=== PATIENT | male | born 1945 | race African-American/Black ===

== ENCOUNTER 2016-08-23 06:38 | Inpatient (IN) ==
[2016-08-23] MEDS ORDERED: FUROSEMIDE 100 MG/10 ML VIAL IV STA (06:57)
[2016-08-23] MEDS ORDERED: ALBUTEROL 2.5 MG/3 ML NEB RESP TX STA (07:07)
[2016-08-23] MEDS ORDERED: FUROSEMIDE 100 MG/10 ML VIAL ONE (07:17)
--- NOTE | 2016-08-23 07:19 | Emergency Department Note ---
Ebony Cornejo Gwan, am scribing for, and in the presence of, Shreyas Horn MD 07:09 . Justina Cornejo James D, MD, personally performed the services described in this documentation, ascribed by Hugo Beck in my presence, and it is both accurate and complete . Arrival - Arrival Chief Complaint: Non-Specific Stated Complaint: Edema Mode of Arrival: Stretcher Limitations: No Limitations Source: Patient, RN Notes Reviewed - History of Present Illness HPI Narrative: Pt is a 71 y/o male who presents to the ED via EMS with a c/o generalized edema with an onset 3 months ago. His associated sxs have been SOB that worsens when he lays flat and the inability to walk. Patient stated that he began seeing Dr. Escalante in office 07/21/2016 due to hx of CHF. He continued to note that Dr. Escalante prescribed 40mg Lasix 3 times daily since onset with no relief. As a continued measure, Dr. Escalante has schedule pt with a Prototype Engineer Manager for 2016. Patient then stated that pt lives at home by himself and that he last saw Dr. Escalante in office 08/17/2016. He confirmed that he has an appointment with Dr. Escalante 08/25/2016 and that he is only able to sleep sitting upright but denies any hx of liver problems or hx of heart attack. Nurses noted that pt has an appointment with Dr. Brizuela on08/26/2016. No other problems/complaints reported in ED. Onset (ago): month(s) Consistency: constant Severity: moderate Allergies/Adverse Reactions: Allergies Allergy/AdvReac Type Severity Reaction Status Date / Time No Known Allergies Allergy Unverified 08/23/16 06:53 Review of System - Review of System 12 point system: reviewed and no additional remarkable complaints except as stated - Review of System Constitutional: Absent: chills, fever Eyes: Absent: discharge, pain Head/Ears/Nose/Throat: Absent: earache, epistaxis Respiratory: Absent: cough Cardiovascular: Absent: chest pain, palpitations Gastrointestinal: Present: as per HPI, abdominal pain (distended). Absent: nausea, vomiting, diarrhea Genitourinary male: Absent: urgency, dysuria, frequency Exam Physical Examination: GENERAL: This is a black male in no apparent distress. VITAL SIGNS: HEENT: Head is normocephalic and atraumatic. Pupils are equally round and reactive to light. Extraocular movement are intact. Oropharynx is benign with moist mucous membranes. NECK: Neck is soft and supple without tenderness. There are no masses. There is no lymphadenopathy. LUNGS: Lungs are clear to auscultation bilaterally. Chest rises symmetrically. There is no chest wall tenderness. Pt has expiratory wheezes in both lung nielson. CV: Heart is regular rate and rhythm without murmurs, rubs, or gallops. ABDOMEN: Abdomen is soft, non-tender to palpation. pt has distended abdomen. There is no organomegaly. Bowel sounds are present and active. SKIN: Skin is warm and dry. No rash. EXTREMITIES: Patient has full range of motion without tenderness. Pt has +2 pitting edema. NEUROLOGIC: Awake, alert, and oriented x4. Cranial nerves II through XII are grossly intact. There are no motorsensory deficits. PSYCHIATRIC: Normal affect. Normal mood. Vital Signs: Vital Signs Temperature 98 F 08/23/16 06:40 Pulse Rate 102 H 08/23/16 09:35 Respiratory Rate 20 08/23/16 09:35 Blood Pressure 108/71 08/23/16 09:35 O2 Sat by Pulse Oximetry 99 08/23/16 09:35 Course Course Narrative: Paracentesis performed from the emergency department. Appropriate labs were sent. - Consultations Consultation #1: Discussed with hospitalist. Patient will be admitted to their service. Time: 10:37 Results - Labs CBC & BMP: 08/23/16 07:10 08/23/16 07:10 Lab Results: I have reviewed the patients labs - EKG EKG results: interpreted by ERMD - Impressions EKG: Sinus tachycardia with a rate of 111, occasional PVCs, old inferior KS, nonspecific ST-T wave changes. - Diagnostic Findings Procedure: Chest x-ray: image reviewed by me (No infiltrates, no pleural effusions.) Disposition Clinical Impression: Dyspnea, Ascites Case discussed with: patient Disposition: Still a Patient Condition: Stable Time of Disposition: 10:37
--- NOTE | 2016-08-23 07:31 | EKG Report ---
Stationary ECG Study [facility] ER Test Date: 08/23/2016 7:30:20 AM Pat Name: KATERYNA ROBERTS Department: Room: Gender: M Cloth Printer: : [id number] Requested by: Shreyas Mathias Order Number: [id number] Reading MD: IRLANDA ORNELAS Intervals [place] Rate: 111 P: 40 [place]: 152 QRS: 7 QRSD: 72 T: -4 QT: 288 QTc: 354 Interpretive Statements SINUS TACHYCARDIA WITH OCCASIONAL ECTOPIC PREMATURE COMPLEXES POSSIBLE INFERIOR MYOCARDIAL INFARCTION, PROBABLY OLD ABNORMAL RHYTHM ECG LOW VOLTAGE Electronically Signed On 08-25-16 12:40:05 CDT by IRLANDA ORNELAS [email or web address]
[2016-08-23 07:39] LABS: Basophils # 0.1 10*3/uL (0.0-0.2); Basophils % 0.4 % (0.0-0.8); Eosinophils % 0.1 % (0.00-10.9); Hematocrit 39.9 VOL% (42.0-52.0); Hemoglobin 13.1 GM/DL (14.0-18.0); Immature Granulocytes % 1.1 %; Immature Granulocytes Absolute 0.17 #; Lymphocytes # 1.4 10*3/uL (1.4-4.0); Lymphocytes % 9.4 % (21.2-54.2); Mean Corpuscular HGB Conc 32.8 GM/DL (32-36); Mean Corpuscular Hemoglobin 29 PG (27-34); Mean Corpuscular Volume 89.1 FL (87-102); Mean Platelet Volume 10.3 FL (9.6-12.0); Monocytes # 1.8 10*3/uL (0.11-0.8); Monocytes % 11.9 % (1.7-12.7); Neutrophils # 11.5 10*3/uL (1.4-7.4); Neutrophils % 77.1 % (38.7-73.9); Platelet Count 317 T/CUMM (130-400); Red Blood Count 4.48 MC/CUMM (3.8-5.5); Red Cell Distribution Width 15.3 % (9.3-17.3); White Blood Count 14.8 T/CUMM (4-12)
[2016-08-23 07:43] LABS: Amorphous Crystals,Urine Occasional /HPF (Few); Apearance,Urine Slightly Hazy (Clear); Bilirubin,Urine Negative (Negative); Blood, Urine Small mg/dL (Negative); Glucose,Urine (UA) Negative (Negative); Hyaline Casts,Urine 4 /LPF (0-3); Ketones,Urine 20 mg/dL (Negative); Mucus,Urine Occasional /LPF (Occasional); Nitrite,Urine Negative (Negative); Protein,Urine 30 MG/DL; RBC,Urine 8 /HPF (0-4); Urine Color Amber (Yellow); Urine Urobilinogen < 2.0 EU/DL (0.2-1.0); WBC,Urine 1 /HPF (0-6)
[2016-08-23 07:50] LABS: INR 1.5; Partial Thromboplastin Time 31.9 SECS (0-40)
[2016-08-23 08:01] LABS: Band Neutrophils 7 % (0-10); Burr Cells Slight; Hypochromasia 1+; Lymphocytes 9 % (20-55); Microcytosis Slight; Promyelocytes 1 %; Segmented Neutrophils 74 % (50-85); Total Cells Counted 100
[2016-08-23 08:02] LABS: Platelet Estimate Normal
--- NOTE | 2016-08-23 08:05 | XRay Report ---
XR chest 1V portable Indication: Shortness of breath Comparison: None available Findings: The heart and mediastinum are normal in size and configuration. The pulmonary vascularity is normal in caliber. No lung infiltrates, effusions, pneumothorax or other abnormality is demonstrated. Impression: Normal chest x-ray PROCEDURE INTERPRETED AT [facility] DEPARTMENT OF RADIOLOGY Final Report Signed by: Dr. Saúl Rubio
[2016-08-23 08:12] LABS: Albumin 1.9 G/DL (3.4-5.0); Bilirubin,Total 2.4 MG/DL (0.2-1.0); Calcium 8.9 MG/DL (8.5-10.1); Osmolality,Calculated 279.2 MOS/KG (273-304); Potassium 4.6 MMOL/L (3.5-5.1); Total Protein 5.9 G/DL (6.4-8.3); Troponin I Only 0.022 NG/ML (0.00-0.045)
--- NOTE | 2016-08-23 09:53 | Ultrasound Report ---
Right upper quadrant ultrasound Indication: Abdominal Pain Findings: The liver is normal in size and echogenicity. The gallbladder is fluid-filled without evidence of stones or sludge. The gallbladder wall thickness is 6.0 mm . The common bile duct measures 4.6 mm. The visualized portion of the pancreas appear within normal limits The right kidney is normal in size and echogenicity and measures 9.6 cm . No free fluid or free air seen. Impression: No evidence of abnormality demonstrated. Ultrasound images stored and captured. PROCEDURE INTERPRETED AT [facility] DEPARTMENT OF RADIOLOGY Final Report Signed by: Dr. Saúl Rubio
--- NOTE | 2016-08-23 10:14 | XRay Report ---
XR abdomen complete w decub Clinical Information: Abdominal Pain abdominal distention, ascites Comparison: None Findings: Bowel gas pattern is nonspecific and within normal limits. No abnormally dilated small bowel loops are identified to suggest obstruction. There is minimal free air identified along the right upper quadrant on the decubitus images, which may be related to recent paracentesis procedure. Scattered fecal material is noted throughout colon, which is otherwise nondilated. No abnormal focal soft tissue masses or calcific densities are identified in the abdomen or pelvis. Nava catheter is noted in place. Lung bases appear predominantly clear. There is no acute osseous abnormality. No suspicious osseous lesions are identified. Impression: Punctate air droplets along the right upper quadrant may be related to recent paracentesis. Free air from bowel perforation would be a less likely consideration but cannot be entirely excluded. Otherwise, no definite acute radiographic abnormality in the abdomen. A mild-moderate degree of fecal stasis/constipation is suspected. PROCEDURE INTERPRETED AT [facility] DEPARTMENT OF RADIOLOGY Final Report Signed by: Favio Morrison
--- NOTE | 2016-08-23 10:19 | Post Interventional Procedure ---
Pre-op diagnosis: protuberant abdomen, ascites Post-op diagnosis: same Procedure: u/s guided paracentesis Contrast: none Flouroscopy: none Radiologist: Favio Morrison Anesthesia: local Specimens: other (2075 mL maloderous/serous ascitic fluid with debris) Estimated blood loss: none Complications: none Condition: stable Description/Findings: Extensive septations are noted. A small pocket of fluid was initially targeted to the right lower quadrant. From this pocket, a total of 75 mL of serous ascitic fluid was removed. Despite catheter manipulation, no additional fluid could be removed. Again ultrasound evaluation of the abdomen was performed and an additional pocket of fluid within the left upper quadrant was visualized. Repeat sterile prep and drape was performed. This pocket was accessed with the centesis catheter and approximately 2 L of serous malodorous ascitic fluid with some debris was removed. Sterile dressings were applied at the puncture sites. Patient tolerated the procedure well and left the procedure area in stable condition. Given the unexpected findings, recommendations were for CT imaging of the abdomen/pelvis with IV contrast when clinically feasible. Assessment and Plan - Time spent with patient Time spent with patient: Less than 30 minutes
[2016-08-23] MEDS ORDERED: ZALEPLON 5 MG CAPSULE PO PRN (11:16)
[2016-08-23] MEDS ORDERED: ONDANSETRON 4 MG/2 ML VIAL IV PRN (11:16)
--- NOTE | 2016-08-23 11:32 | Hospitalist History & Physical ---
Assessment and Plan - Time spent with patient Time spent with patient: Greater than 30 minutes (1) Bilateral lower extremity edema Status: Acute Assessment and plan: 71-year-old -Greek male admitted by Dr. Cason from the ED with shortness of breath due to ascites and bilateral lower extremity edema. Patient has been followed by Dr. Escalanet and is on multiple diuretics. Patient had a initial appointment for evaluation by Dr. Brizuela on 08/26/2016 scheduled. Will admit the patient to monitored bed, consult Dr. Escalante and Dr. Brizuela for evaluation. Will restart his home medicines. Will await results of CT scan and cultured paracentesis. We will go ahead and start the patient on some antibiotics for erythema and induration surrounding umbilicus. This is all been discussed with Dr. Cason. Further recommendations to follow. Current Visit: Yes (2) Leukocytosis Status: Acute Current Visit: Yes (3) Hyperbilirubinemia Status: Acute Current Visit: Yes (4) CHF (congestive heart failure) Status: Acute Current Visit: Yes (5) Dyspnea Status: Acute Current Visit: Yes (6) Ascites Status: Acute Current Visit: Yes History of Present Illness Chief complaint: Shortness of breath, increased swelling History of present illness: Mr. Dale is a very pleasant 71-year-old -Greek male with history of hypertension presenting to the ED today with increased abdominal and lower extremity swelling and shortness of breath. Patient states he was in his normal state of health until May when he started to get some lower extremity edema. He was referred to Dr. Escalante's office and has seen him twice with his last visit being last week. Dr. Escalante was treating him for CHF and had started him on 40 mg of Lasix 3 times a day with no relief of his symptoms. On his visit last week he was started on Aldactone and metolazone as well. Patient was also referred to see Dr. Brizuela for gastroenterology on . patient states that he continued to get abdominal and lower extremity swelling. He is now short of breath and very weak in his lower extremities and cannot walk. he Is also complaining of pain around his bellybutton. Patient denies any further medical history other than hypertension and he has no surgical history. He denies headache, blurred vision, difficulty swallowing, chest pain, constipation, diarrhea, difficulty urinating, or decreased sensation. He is retired from [employer] in [place] and has recently moved back to [place]. Echo in Dr. Escalante's office showed a 40% EF as well as the one done in the ED today. Patient is afebrile with tachycardia. He did have some runs of V. fib on the monitor during examination that were asymptomatic. His white count is mildly elevated at 14.8, H&H 13.1/39.9, platelets are normal, patient's coags are normal, electrolytes and creatinine are normal, patient's bilirubin is elevated at 2.4 with normal AST and ALT. His alkaline phosphatase is abnormal at 133 and his BNP is 887, abdominal ultrasound showed no evidence of abnormality. Chest x-ray is normal. Chest x- ray showing sinus tachycardia with occasional ectopic premature complexes and possible inferior NJ, probably old. Dr. Morrison from interventional radiology performed an ultrasound-guided paracentesis this morning where 2075 mL of malodorous/serous ascitic fluid with debris was removed. This is been sent off for culture. With the unexpected findings of extensive septations seen during paracentesis, CT the abdomen and pelvis was recommended and this is now pending. Patient's case was discussed with ED physician Dr. Horn and hospitalist Dr. Cason and it was decided patient would serve best by hospital admission and further workup. Home Medications Medication Instructions Recorded Confirmed Type Captopril 6.25 mg PO BID 08/23/16 08/23/16 History Carvedilol 6.25 mg PO BID 08/23/16 08/23/16 History Furosemide Tab [Lasix Tab] 40 mg PO DAILY 08/23/16 08/23/16 History Potassium Chloride 20 meq PO DAILY 08/23/16 08/23/16 History Spironolactone [Aldactone] 12.5 mg PO DAILY 08/23/16 08/23/16 History metOLazone [Metolazone] 5 mg PO BID 08/23/16 08/23/16 History Allergies Allergy/AdvReac Type Severity Reaction Status Date / Time No Known Allergies Allergy Unverified 08/23/16 06:53 Medical,Surgical,& Family Hx - Medical History Cardio: History of: CHF, Hypertension - Surgical History Cardiac Surgeries: Patient Denies: Cardiac Catheterization Abdominal Surgeries: Patient denies: Abdominal Surgery, Colonoscopy - Family History Family History: Reports;: Family Hypertension - Social History Smoking Status: Never smoker Frequency of Alcohol Use: None Type of Drug Use: None Lives With:: Alone Functional capacity: independent ambulation Review of systems: Complete 10 system review of systems was obtained and pertinent negatives and positives are per HPI Exam - Constitutional Vitals: Period Temp Pulse Resp BP Sys/Dorado Pulse Ox Last 24 Hr 98 F-98 F 99-110 17-24 105-126/65-83 95-99 Exam: Constitutional System: Mild distress due to shortness of breath. No tremulousness. Head: Normocephalic, atraumatic. Ears, Nose and Throat System: No evidence of Otitis or Mastoiditis. No epistaxis or discharge Eyes System: Pupils equal, round, and reactive. Extraocular muscles intact. Neck: Supple, without adenopathy, No jugular venous distention. No thyromegaly, neck mass, or prior surgery apparent. Respiratory System: Chest clear to auscultation. Cardiovascular System: Heart with tachycardic rate and rhythm. No murmur. GI System: Abdomen moderately distended, tender with some erythema around umbilicus. No active bowel sounds present due to ascites. Musculoskeletal System: limbs with +4 pedal edema. No distal pulses appreciated due to edema. Neurological System: No discernable sensory deficit. No aphasia Psychiatric System: Conversation is rational Results - Labs CBC & BMP: 08/23/16 07:10 08/23/16 07:10 Lab Results: I have reviewed the past 24 hour labs - EKG EKG shows: tachycardia - Diagnostic Findings Procedure: Abdominal x-ray: report reviewed by me (No acute process), Chest x- ray: report reviewed by me (No acute process), CT Abdomen and Pelvis: report reviewed by me (Pending), Ultrasound: report reviewed by me (No acute process)
[2016-08-23 11:42] LABS: Neutrophils,Peritoneal Fluid 89 %
[2016-08-23 11:43] LABS: RBC,Peritoneal Fluid 8237 T/CUMM
--- NOTE | 2016-08-23 12:12 | Ultrasound Report ---
Exam: Ultrasound-guided paracentesis Clinical history: new ascites. Physician: Dr. Morrison. Procedure: Informed consent was obtained prior to procedure. A formal timeout was performed. Maximum sterile barrier technique was used. Initially, the right lower quadrant was prepped and draped in sterile fashion. Under sonographic guidance, a 6 [place] safety centesis catheter and needle were advanced into the ascites using trocar technique. Of note, the ascites is complex with debris and/or septations. A captured sonographic image documents needle position. From this position, only 75 cc of serous peritoneal fluid could be removed despite catheter repositioning. The needle was removed. Ultrasound evaluation demonstrates a pocket of fluid within the left upper quadrant. Again, the fluid is complex with debris and/or septation suggested. Through the catheter, we obtained a total of 2000 cc of straw-colored ascites with debris. Additionally, the fluid was malodorous. No additional fluid could be obtained. Therefore, the catheter was removed. A bandage was placed at the puncture site. The patient tolerated the procedure well. Complications: None. Estimated blood loss: Less than 5 mL. Impression: Technically successful ultrasound guided paracentesis. Peritoneal fluid appears "complicated" as detailed above. CT imaging of the abdomen/pelvis would be helpful for further evaluation. PROCEDURE INTERPRETED AT [facility] DEPARTMENT OF RADIOLOGY Final Report Signed by: Favio Morrison
--- NOTE | 2016-08-23 12:23 | CT Report ---
CT abdomen pelvis w con Indication: Abdominal pain, swelling, shortness of breath Comparison: Abdomen radiographs 08/23/2016. Technique: CT of the abdomen and pelvis was performed following administration of intravenous contrast. Coronal and sagittal reformatted images were additionally created and submitted for review. The total DLP is 1486 mGy*cm. Dose reduction: This CT exam was performed using one or more of the following dose reduction techniques: Automated exposure control, automated adjustment of the mA and/or KV according to patient size, or use of iterative reconstruction technique. Findings: Very minimal posterior basilar dependent atelectatic changes are noted bilaterally. Lung bases are otherwise clear. There is no pleural or pericardial effusion. ABDOMEN: Liver/Gallbladder: No abnormal enhancing hepatic lesions are visualized. There is no biliary ductal dilatation. No gallstones are visualized. The portal vein appears patent. Spleen: No acute findings. Pancreas: No acute findings. Adrenals: Within normal limits in appearance. Kidneys: Both kidneys enhance with no evidence of hydronephrosis. There is symmetric excretion of contrast from both kidneys on delayed images. Bowel/mesentery: Extensive abnormality with free fluid/air throughout the peritoneal cavity is noted. There is suggestion of debris within this collection and multiple droplets of air, which may represent a large peritoneal abscess. An underlying bowel perforation is not definitely identified but cannot be excluded. There is no evidence of small bowel dilatation or obstruction. Oral contrast is noted throughout the small bowel and into the colon at least to the level of the descending colon/sigmoid colon there are several colonic diverticula noted. There is no definite CT evidence of acute diverticulitis. At the peritoneal reflections, especially within the left upper quadrant, there is thickening of the mesenteric fat and a degree of omental caking is not excluded. No mesenteric adenopathy is definitely visualized. Retroperitoneum: No evidence of aortic aneurysm or significant retroperitoneal adenopathy. PELVIS: Similar large abdominopelvic collection extends into the pelvis. This does not appear to definitely communicate with bowel or bladder. Nava catheter is noted within the bladder. The bladder is collapsed and otherwise poorly evaluated. There is no adenopathy in the pelvis. Prostate is grossly within normal limits. BONES: No acute or suspicious osseous abnormalities are identified. Mild degenerative changes are noted within the lumbar spine. IMPRESSION: Large fluid collection essentially filling the peritoneal cavity with suggestion of thickening of the peritoneal lining, possible omental caking and extensive debris with innumerable air droplets noted may represent a spontaneous bacterial peritonitis/peritoneal abscess. Although not definitely visualized, bowel perforation cannot be excluded. There is no definite evidence of small bowel obstruction. Critical findings discussed with Dr. Mac Horn via telephone at 12:15 PM on the day of the examination 08/23/2016 12:12 PM PROCEDURE INTERPRETED AT [facility] DEPARTMENT OF RADIOLOGY Final Report Signed by: Favio Morrison
--- NOTE | 2016-08-23 13:53 | Gastrointestinal Consult Note ---
Assessment and Plan (1) Ascites Status: Acute Assessment and plan: 08/23-3 month history of increased edema and abdominal distention. Post paracentesis with 2 L of malodorous fluid with debris noted with gram-positive cocci and few gram-positive rods. Abdominal ultrasound showed normal liver size , no acute gallbladder findings. CT of abdomen shows peritoneal cavity thickening with questionable omental caking. Bilirubin 2.4, alkaline phosphatase 133, albumin 2.1. INR 1.5. IV Flagyl and Ancef have been started. Check hepatitis panel. Plan an addendum to followed by Dr. Brizuela. Current Visit: Yes History of Present Illness Chief complaint: Ascites History of present illness: Mr. Dale is a 71 year old male who presented to the hospital with increased generalized edema and shortness of breath that began approximately 3 months ago. Patient states that he was in his usual state of health until May of this year when he noticed that he began to have swelling in his legs and his abdomen. States that he does not have difficulty breathing but he was having shortness of breath when he would try to walk or do other activities. Patient states since this time his abdomen has began to distend and he has had some discomfort related to this. He is followed by Dr. mcwilliams in clinic and has been on diuretic therapy with minimal relief if at all. He states that he has never had abdominal swelling like this before. Patient has never seen a crusher dry ground mica in the past and has never had endoscopy done before. He has a negative history for smoking or drinking. States that he leads an active life and lives of healthy lifestyle. He has never been diagnosed with liver problems in the past. Denies family history of colon cancer. States that he was given an appointment to see Dr. Brizuela this week however he could not wait and came to the ER for further evaluation. He had an ultrasound-guided paracentesis this morning with Dr. Peoples had 2075 mL's of fluid removed which was reported to be malodorous with debris. Abdominal ultrasound on admission showed no acute findings with normal liver size. He had a CT of the abdomen done following this which showed some peritoneal cavity thickening with questionable omental caking. He denies any fever, chills or night sweats. Denies any unexplained weight loss. He has been started on IV antibiotics and peritoneal fluid initial analysis noted to show gram-positive cocci and few gram -positive rods. Home Medications Medication Instructions Recorded Confirmed Type Captopril 6.25 mg PO BID 08/23/16 08/23/16 History Carvedilol 6.25 mg PO BID 08/23/16 08/23/16 History Furosemide Tab [Lasix Tab] 40 mg PO DAILY 08/23/16 08/23/16 History Potassium Chloride 20 meq PO DAILY 08/23/16 08/23/16 History Spironolactone [Aldactone] 12.5 mg PO DAILY 08/23/16 08/23/16 History metOLazone [Metolazone] 5 mg PO BID 08/23/16 08/23/16 History Allergies Allergy/AdvReac Type Severity Reaction Status Date / Time No Known Allergies Allergy Unverified 08/23/16 06:53 Medical,Surgical,& Family Hx - Medical History Cardio: History of: CHF, Hypertension Musculoskeletal: No history of: Amputation - Surgical History Cardiac Surgeries: Patient Denies: Cardiac Catheterization Thoracic Surgeries: Patient denies;: Organ Transplant, Lobectomy Neurologic Surgeries: Patient denies: Neurologic Surgery Abdominal Surgeries: Patient denies: Abdominal Surgery, Colonoscopy Reproductive Surgeries: Patient denies;: Genitourinary Surgery - Family History Family History: Reports;: Family Hypertension - Social History Smoking Status: Never smoker Frequency of Alcohol Use: None Type of Drug Use: None 12 point system: reviewed and no additional remarkable complaints except as stated - Constitutional Constitutional: Present: as per HPI - EENT Eyes: Present: as per HPI Ears: Present: as per HPI Nose, mouth and throat: Present: dysphagia - Cardiovascular Cardiovascular: Present: as per HPI, dyspnea - Respiratory Respiratory: Present: as per HPI - Gastrointestinal Gastrointestinal: Present: as per HPI, other (Abdominal distention) - Genitourinary Genitourinary: Present: as per HPI - Musculoskeletal Musculoskeletal: Present: as per HPI - Neurological Neurological: Present: as per HPI - Psychiatric Psychiatric: Present: as per HPI - Endocrine Endocrine: Present: as per HPI - Hematologic/Lymphatic Hematologic/Lymphatic: Present: as per HPI Exam - Constitutional Vitals: Period Temp Pulse Resp BP Sys/Dorado Pulse Ox Last 24 Hr 99.4 F 102 18 103/60 100 General appearance: normal weight, no acute distress - Head Head exam: Present: normal inspection, normocephalic - Eye Eye exam: Present: other (Lids and conjunctivae unremarked). Absent: scleral icterus - ENT ENT exam: Present: normal exam, normal oropharynx - Neck Neck exam: Present: normal inspection - Respiratory Respiratory exam: Present: clear to auscultation bilaterally. Absent: rales, rhonchi, wheezes - Cardiovascular Cardiovascular exam: Present: regular rate and rhythm. Absent: diastolic murmur , JVD, systolic murmur - GI/Abdominal GI/Abdominal exam: Present: normal bowel sounds, ascites, distended, tenderness , soft. Absent: mass, organomegaly - Extremities Exam Extremities exam: Present: normal inspection, full ROM - Back Exam Back exam: Present: normal inspection - Neurological Exam Neurological exam: Present: alert, oriented X3 - Psychiatric Psychiatric exam: Present: normal affect, normal mood - Skin Skin exam: Present: normal color, warm, dry Results - Labs CBC & BMP: 08/23/16 07:10 08/23/16 07:10 Lab Results: I have reviewed the past 24 hour labs - Diagnostic Findings Procedure: CT Abdomen and Pelvis: report reviewed by me, Ultrasound: report reviewed by me Quality Measures - Stroke Symptom Onset Unknown: No
[2016-08-23] MEDS: ENOXAPARIN 30 MG/0.3 ML SYRINGE SUBCUT SCH (14:28)
[2016-08-23] MEDS: PANTOPRAZOLE 40 MG TABLET PO SCH (14:28)
[2016-08-23] MEDS: metroNIDAZOLE INJ 500 MG in PREMIX 1 EACH IV SCH ×2 (14:28→22:09)
[2016-08-23] MEDS ORDERED: SKIN HEALING OINT (AQUAPHOR) 50 GM TUBE TOP PRN (15:08)
--- NOTE | 2016-08-23 15:15 | General Surgery Consult Note ---
Assessment and Plan - Time spent with patient Time spent with patient: Less than 30 minutes (1) Abdominal mass Status: Acute Assessment and plan: Impression: 1. Abdominal mass etiology unclear with extension towards the umbilicus. We need to consider near neoplastic process 2. Ascites etiology unclear 3. Congestive heart failure. Plan: 1. At this point were waiting on the fluids that were drawn off see if there is any unusual sales or abnormality seen with that. We will start some local care to the abdominal wall at this point time to keep things smooth and dry well protected. 2. Because of the mass-effect and induration around the umbilicus which could be infectious in nature I think we have to consider that this could be a neoplastic process. I think patient needs an be in good medical condition before considering any surgery at this point in order to ensure that we get the best results long-term. Current Visit: Yes Qualifiers: Abdominal location: periumbilical Qualified Code(s): R19.05 - Periumbilic swelling, mass or lump (2) Abdominal mass Status: Acute Current Visit: Yes History of Present Illness Chief complaint: Usual changes of the peritoneal cavity and induration about the umbilicus. History of present illness: Mr. Dale is a 71 year old male -[place] male who presented with ascites and some congestive heart failure and was put in at that time. He was found to have a pretty tight abdomen and they attempted to do some thoracentesis and got a little bit of fluid out once but not much out the other side. CT scan of the abdomen and pelvis showed some unusual changes in around the lower abdomen possibly omental caking is a described. Bowel seems to be intact and seems to be flowing through without difficulty at this time. He does have some induration around the umbilicus at this time but probably is just a projection with going on in the abdomen itself. Do not understand the ascites problems and he describes it is a last couple months getting worse. I think it is important that we consider the possibility this is neoplastic in nature and that we need to count a sort out this before rushing to surgery. Home Medications Medication Instructions Recorded Confirmed Type Captopril 6.25 mg PO BID 08/23/16 08/23/16 History Carvedilol 6.25 mg PO BID 08/23/16 08/23/16 History Furosemide Tab [Lasix Tab] 40 mg PO DAILY 08/23/16 08/23/16 History Potassium Chloride 20 meq PO DAILY 08/23/16 08/23/16 History Spironolactone [Aldactone] 12.5 mg PO DAILY 08/23/16 08/23/16 History metOLazone [Metolazone] 5 mg PO BID 08/23/16 08/23/16 History Allergies Allergy/AdvReac Type Severity Reaction Status Date / Time No Known Allergies Allergy Unverified 08/23/16 06:53 Medical,Surgical,& Family Hx - Medical History Cardio: History of: CHF, Hypertension Musculoskeletal: No history of: Amputation - Surgical History Cardiac Surgeries: Patient Denies: Cardiac Catheterization Thoracic Surgeries: Patient denies;: Organ Transplant, Lobectomy Neurologic Surgeries: Patient denies: Neurologic Surgery Abdominal Surgeries: Patient denies: Abdominal Surgery, Colonoscopy Reproductive Surgeries: Patient denies;: Genitourinary Surgery - Family History Family History: Reports;: Family Hypertension - Social History Smoking Status: Never smoker Frequency of Alcohol Use: None Type of Drug Use: None 12 point system: reviewed and no additional remarkable complaints except as stated Exam - Constitutional Vitals: Period Temp Pulse Resp BP Sys/Dorado Pulse Ox Last 24 Hr 99.4 F 102 18 103/60 100 General appearance: mild distress - Head Head exam: Present: normal inspection - Eye Eye exam: Present: EOMI - ENT ENT exam: Present: normal exam - Neck Neck exam: Present: normal inspection - Respiratory Respiratory exam: Present: clear to auscultation bilaterally - Cardiovascular Cardiovascular exam: Present: RRR - GI/Abdominal GI/Abdominal exam: Present: distended, hypoactive bowel sounds, mass (Fullness and firmness around the umbilicus), tenderness (About the umbilicus), soft - Extremities Exam Extremities exam: Present: normal inspection - Back Exam Back exam: Present: normal inspection - Neurological Exam Neurological exam: Present: alert - Skin Skin exam: Present: normal color, warm, dry Quality Measures - Stroke Symptom Onset Unknown: No Results - Labs CBC & BMP: 08/23/16 07:10 08/23/16 07:10 Lab Results: I have reviewed the past 24 hour labs
[2016-08-23 16:05] LABS: Hepatitis A Ab IgM Result Negative (Negative); Hepatitis B Core IgM Quant 0.16 Index; Hepatitis B Core IgM Result Negative (Negative); Hepatitis B Surface Ag Quant < 0.10 Index; Hepatitis B Surface Ag Result Negative (Negative); Hepatitis C Virus Ab Quant 0.12 Index; Hepatitis C Virus Ab Result Negative (Negative)
--- NOTE | 2016-08-23 17:38 | Cardiology Consult Note ---
Michael Cornejo April RN, am scribing for, and in the presence of, Jonny Serrano MD 17:38. Assessment and Plan - Time spent with patient Time spent with patient: Greater than 30 minutes (Due to assessment, planning, documentation medication review) (1) Ascites Status: Acute Assessment and plan: 1. 71-year-old BM with 3-4 months of increased lower extremity edema and ascites/anasarca feeling much better after large volume paracentesis earlier today. 2. 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 Consult sleep medicine. 3. Mild cardiomyopathy with ejection fraction of 40% July 2016 in the clinic; he is followed Dr. Escalante 4. Add spironolactone 25 mg twice a day 5. Add IV Lasix 40 mg twice a day 6. 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 Escalante Mr. Dale is a 71 year old male with a history of hypertension. Surgical history includes appendectomy. Family history of sister with diabetes and siblings with hypertension. He reports he is a lifetime non-smoker. He first saw Dr. Escalante July 21 for edema in lower extremities and abdomen and dyspnea on exertion. He tells me he has been having swelling shortness of breath since May 25. His primary doctor had put him on Lasix 20 mg daily and this had not helped. She refer him to Dr. Escalante any change Lasix to 40 mg daily and had a visit on August 17 brianne added metolazone 5 mg daily. Echo done at Dr. Escalante's office July 21 with ejection fraction 40%, mild to moderate tricuspid regurgitation, mild mitral regurgitation, mild pulmonic regurgitation. Shortness of breath continued to get worse and he came to the emergency department this morning for further evaluation. He reports he has been extremely short of breath even while sitting, also complains of orthopnea and extreme weakness. EKG done this morning showed sinus tachycardia with heart rate of 111. Ultrasound-guided paracentesis today with 2075 mL malodorous /serous ascitic fluid with debris was removed. He was given Lasix 80 mg IV 1 dose in the emergency department. He still has swelling in his abdomen and lower extremities, but he tells me this is much better than when he came in. He also says his breathing is much improved. He continues to be tachycardic. O2 sat 100% on room air, blood pressure 103/60. CC: Carlton Cason MD - Home Medications and Allergies Home Medications: Home Medications Medication Instructions Recorded Confirmed Type Captopril 6.25 mg PO BID 08/23/16 08/23/16 History Carvedilol 6.25 mg PO BID 08/23/16 08/23/16 History Furosemide Tab [Lasix Tab] 40 mg PO DAILY 08/23/16 08/23/16 History Potassium Chloride 20 meq PO DAILY 08/23/16 08/23/16 History Spironolactone [Aldactone] 12.5 mg PO DAILY 08/23/16 08/23/16 History metOLazone [Metolazone] 5 mg PO BID 08/23/16 08/23/16 History Allergies/Adverse Reactions: Allergies Allergy/AdvReac Type Severity Reaction Status Date / Time No Known Allergies Allergy Unverified 08/23/16 06:53 - Constitutional Constitutional: Present: as per HPI - EENT Eyes: Present: blurry vision, requires corrective lense Ears: Absent: decreased hearing, tinnitus Nose, mouth and throat: Absent: dysphagia, epistaxis, headache(s), neck pain - Cardiovascular Cardiovascular: Present: dyspnea, dyspnea on exertion, edema, orthopnea. Absent : chest pain at rest, chest pain with activity, diaphoresis, radiating jaw, neck or arm pain, lightheadedness, palpitations - Respiratory Respiratory: Present: dyspnea, dyspnea on exertion. Absent: hemoptysis, wheezing - Gastrointestinal Gastrointestinal: Present: abdominal pain, other (Ascites). Absent: constipation, diarrhea, hematemesis, hematochezia, melena, nausea, vomiting - Genitourinary Genitourinary: Absent: dysuria, hematuria - Musculoskeletal Musculoskeletal: Present: limited range of motion, muscle weakness. Absent: back pain - Neurological Neurological: Present: abnormal gait. Absent: abnormal speech, dizziness, frequent falls, headache(s), syncope - Psychiatric Psychiatric: Absent: confusion, depression - Endocrine Endocrine: Present: fatigue - Hematologic/Lymphatic Hematologic/Lymphatic: Absent: easy bleeding, easy bruising Medical,Surgical,& Family Hx - Medical History Cardio: History of: Hypertension - Surgical History Abdominal Surgeries: Surgical HX of: Appendectomy - Family History Family History: Reports;: Family Diabetes (Sister), Family Hypertension ( Siblings) - Social History Smoking Status: Never smoker Have you smoked in the last 12 months: No Frequency of Alcohol Use: None Type of Drug Use: None Lives With:: Alone Functional capacity: uses cane/walker Physical Examination Vital Signs Temp Pulse Resp BP Pulse Ox 98 F 99 H 18 105/69 95 08/23/16 06:40 08/23/16 06:40 08/23/16 06:40 08/23/16 06:40 08/23/16 06:40 General: Present: Appears Well, No Apparent Distress HEENT: Present: PERRL, Mucus Membranes Moist Neck: Present: Supple Neck, Midline Trachea Cardiac: Present: Reg Rate and Rhythm, No Murmur, Tachycardia Lungs: Present: Normal Breath Sounds, No Wheeze, Rales, Rhonchi. Absent: Oxygen Neuro: Absent: Resting Tremor, Essential Tremor Abdomen: Present: Decreased Bowel Sounds, Ascites, Tender Skin: Present: Other (erythema around umbilicus) Musculoskeletal: Present: Decreased Range of Motion Gait: Present: Poor Gait Extremities: Present: Normal Upper Extr. Pulses, +3 Edema (Bilateral lower extremities). Absent: Normal Gait, Normal Lower Extr. Pulses (Weight pulses bilaterally) Result/EKG - Labs CBC & BMP: 08/23/16 07:10 08/23/16 07:10 Lab Results: I have reviewed the past 24 hour labs Labs: Laboratory Results - last 24 hr 08/23/16 08/23/16 14:26 15:40 Carcinoembryonic Ag 1.1 Hepatitis A IgM Ab Negative Hep Bs Antigen Negative Hep B Core IgM Ab Negative Hepatitis C Antibody Negative - Diagnostic Findings Procedure: Chest x-ray: report reviewed by me - EKG EKG results: interpreted by me EKG shows: tachycardia, sinus rhythm Quality Measures - Stroke Symptom Onset Unknown: No IMaggie Randall Scott, MD, personally performed the services described in this documentation, ascribed by Luciana Rodriguez RN in my presence, and it is both accurate and complete [id number] .
[2016-08-23] MEDS: FUROSEMIDE 40 MG/4 ML VIAL IV SCH (18:05)
--- NOTE | 2016-08-23 21:25 | ECHO Report ---
Dion Dale Exam Date: 08/23/2016 08:40 Referring Physician: Technologist: Amita Blount Age: 71 Ht (in): 67 Wt (lb): 215 Gender: M Exam Location: [facility] Echo Indications: dyspnea, tachycardia BP: 119 / 75 HR: 102 Rhythm: tachycardia Technical Quality: Fair IMPRESSIONS 1. Left ventricle is mildly dilated at worse with overall ejection fraction 50-55% if not better. 2. Mild to moderately dilated left atrium. 3. Right-sided chambers are normal size. 4. Mildly sclerotic mitral valve with mild to moderate regurgitation. 4. Aortic valves a sclerotic tricuspid structure with trace insufficiency. 5. Mild to moderate tricuspid regurgitation. 6. Mildly elevated right-sided pressures ranging from 48-53 mmHg. MEASUREMENTS (Male / Female) Normal Values 2D ECHO LV Diastolic Diameter PLAX 3.4 cm 4.2 - 5.9 / 3.9 - 5.3 cm LV Systolic Diameter PLAX 3.0 cm LV Fractional Shortening PLAX 10.1 % IVS Diastolic Thickness 1.8 cm 0.6 - 1.0 / 0.6 - 0.9 cm LVPW Diastolic Thickness 1.3 cm 0.6 - 1.0 / 0.6 - 0.9 cm Aortic Root Diameter 2.3 cm LA Systolic Diameter LX 4.6 cm 3.0 - 4.0 / 2.7 - 3.8 cm DOPPLER TR Peak Velocity 328.0 cm/s TR Peak Gradient 43.0 mmHg FINDINGS Left Ventricle Left ventricle may be mildly dilated with an overall ejection fraction probably of 50-55% if not better. Right Ventricle Normal right ventricular size. Right Atrium Normal right atrial size. Left Atrium Mild to moderately increased left atrial size. Mitral Valve Mild mitral valve sclerosis. Mild-moderate mitral valve regurgitation. Aortic Valve Aortic valves a tricuspid structure with minimal sclerosis and good motion. There is no stenosis and only trace insufficiency. Tricuspid Valve Morphologically normal tricuspid valve. Mild to moderate tricuspid valve regurgitation. Tricuspid regurgitation velocities suggest a PAP of 48-53 mmHg Pulmonic Valve Morphologically normal pulmonic valve. Trace pulmonary valve regurgitation. Pericardium No pericardial effusion. Aorta Normal size aortic root and proximal ascending aorta. Jose Antonio Riley MD (Electronically Signed) Final Date: 23 August 2016 21:24
[2016-08-23] MEDS: SPIRONOLACTONE 25 MG TABLET PO SCH (21:40)
[2016-08-24] MEDS: metroNIDAZOLE INJ 500 MG in PREMIX 1 EACH IV SCH ×4 (03:34→21:58)
[2016-08-24 07:18] LABS: Basophils # 0.1 10*3/uL (0.0-0.2); Basophils % 0.3 % (0.0-0.8); Eosinophils % 0.1 % (0.00-10.9); Hematocrit 41.4 VOL% (42.0-52.0); Hemoglobin 13.1 GM/DL (14.0-18.0); Immature Granulocytes % 1.6 %; Immature Granulocytes Absolute 0.28 #; Lymphocytes % 11.6 % (21.2-54.2); Mean Corpuscular HGB Conc 31.6 GM/DL (32-36); Mean Corpuscular Hemoglobin 29 PG (27-34); Mean Corpuscular Volume 90.6 FL (87-102); Mean Platelet Volume 10.5 FL (9.6-12.0); Monocytes # 2.4 10*3/uL (0.11-0.8); Monocytes % 13.8 % (1.7-12.7); Neutrophils # 12.4 10*3/uL (1.4-7.4); Neutrophils % 72.6 % (38.7-73.9); Platelet Count 327 T/CUMM (130-400); Red Blood Count 4.57 MC/CUMM (3.8-5.5); Red Cell Distribution Width 15.6 % (9.3-17.3); White Blood Count 17.1 T/CUMM (4-12)
[2016-08-24 07:43] LABS: Band Neutrophils 7 % (0-10); Lymphocytes 12 % (20-55); Segmented Neutrophils 63 % (50-85); Total Cells Counted 100
[2016-08-24 07:44] LABS: Hypochromasia 1+; Microcytosis Slight; Ovalocytes Slight; Platelet Estimate Adequate
[2016-08-24 07:54] LABS: Albumin 2.1 G/DL (3.4-5.0); Bilirubin,Total 4.8 MG/DL (0.2-1.0); Calcium 8.6 MG/DL (8.5-10.1); Osmolality,Calculated 279.4 MOS/KG (273-304); Thyroid Stimulating Hormone 2.85 uIU/ml (0.358-3.74); Total Protein 6.1 G/DL (6.4-8.3)
[2016-08-24 08:09] LABS: Calcium 8.7 MG/DL (8.5-10.1); Magnesium 1.9 MG/DL (1.8-2.4); Osmolality,Calculated 280.4 MOS/KG (273-304)
[2016-08-24] MEDS: SPIRONOLACTONE 25 MG TABLET PO SCH (08:41)
[2016-08-24] MEDS: PANTOPRAZOLE 40 MG TABLET PO SCH (08:41)
[2016-08-24] MEDS: FUROSEMIDE 40 MG/4 ML VIAL IV SCH (08:41)
[2016-08-24] MEDS ORDERED: METOPROLOL TARTRATE 25 MG TABLET PO ONE (08:52)
--- NOTE | 2016-08-24 09:15 | General Surgery Progress Note ---
Assessment and Plan - Time spent with patient Time spent with patient: Greater than 30 minutes (1) Abdominal mass Status: Acute Assessment and plan: 08/24/16 Large peritoneal omental caking with peritonitis. No gross colonic abnormalities or perforations seen, but there is still no definite etiology for the clinical & CT abnormalities. We will plan BE to get a look at the colon. The patient isn't favorable to surgery at this point, so I'll check with IR to see if they think it's feasible to place a percutaneous drainage catheter. We will continue IV antibiotics and watch the abdominal wall closely. He certainly appears to feel better, however the overall picture is unclear, and he still may require surgery. Current Visit: Yes Qualifiers: Abdominal location: periumbilical Qualified Code(s): R19.05 - Periumbilic swelling, mass or lump Subjective Patient reports: Present: feels better, pain is less, bowel movement. Absent: shortness of breath Exam - Constitutional Vitals: Period Temp Pulse Resp BP Sys/Dorado Pulse Ox Last 24 Hr 97.1 F-99.4 F 77-102 18-24 82-103/41-60 93-100 General appearance: no acute distress, other (Pt sitting up in chair in no distress; he is smiling, saying he feels 'so much better' and denies pain or shortness of breath. ) - Neck Neck exam: Present: normal inspection - Respiratory Respiratory exam: Present: rhonchi. Absent: accessory muscle use, wheezes - Cardiovascular Cardiovascular exam: Present: RRR, tachycardia - GI/Abdominal GI/Abdominal exam: Present: ascites, distended, hypoactive bowel sounds, rebound , other (Umbilicus is protuberant but soft; there is diffuse erythema without fluctuance or localized purulence, which extends approximately from the umbilicus 5cm inferiorly and out 5cm both directions. It is slightly warm but not tender to touch. No redness at paracentesis tap sites. No suprapubic tenderness or guarding. ). Absent: guarding - Extremities Exam Extremities exam: Present: edema (Diffuse bilaterally without weeping or redness.) Results - Labs CBC & BMP: 08/24/16 06:48 08/24/16 06:48 Lab Results: I have reviewed the past 24 hour labs (Noted; Peritoneal fluid with >10k wbc's) - Diagnostic Findings Procedure: CT Abdomen and Pelvis: image reviewed by me, report reviewed by me ( Reviewed again with Dr Painter.) Quality Measures - Stroke Symptom Onset Unknown: No
--- NOTE | 2016-08-24 09:17 | Gastrointestinal Progress Note ---
Assessment and Plan (1) Ascites Status: Acute Assessment and plan: 08/24-Afebrile, WBC elevated at 17 today. Wt down slightly. Continue to monitor at present time and consider repeat paracentesis on tomorrow. Plan and addendum to follow by Dr Brizuela. 08/23-3 month history of increased edema and abdominal distention. Post paracentesis with 2 L of malodorous fluid with debris noted with gram-positive cocci and few gram-positive rods. Abdominal ultrasound showed normal liver size , no acute gallbladder findings. CT of abdomen shows peritoneal cavity thickening with questionable omental caking. Bilirubin 2.4, alkaline phosphatase 133, albumin 2.1. INR 1.5. IV Flagyl and Ancef have been started. Check hepatitis panel. Plan an addendum to followed by Dr. Brizuela. Current Visit: Yes Gastroenterology - PN: Subj Interval history: CC: Ascites Pt is seen sitting up in chair, awake, alert, states he is feeling some better today. He denies any abdominal pain other than some mild soreness around his umbilical area. His WBC elevated today at 17.1. He is afebrile at present time. Bilirubin is elevated at 4.8. Abdomen is soft, distended with bowel sounds noted. Hepatitis panels is negative. Dr Painter has consulted and following at present time. Weight down a kilogram since admission. ROS: Denies SOB or chest pain Exam (Progress Note) - Constitutional Vitals: Period Temp Pulse Resp BP Sys/Dorado Pulse Ox Last 24 Hr 97.1 F-99.4 F 77-102 18-24 82-103/41-60 93-100 General appearance: normal weight, no acute distress - Head Head exam: Present: normal inspection, normocephalic - Eye Eye exam: Present: other (lids and conjunctiva unremarkable). Absent: scleral icterus - ENT ENT exam: Present: normal exam, normal oropharynx - Neck Neck exam: Present: normal inspection - Respiratory Respiratory exam: Present: clear to auscultation bilaterally. Absent: rales, rhonchi, wheezes - Cardiovascular Cardiovascular exam: Present: regular rate and rhythm. Absent: diastolic murmur , JVD, systolic murmur - GI/Abdominal GI/Abdominal exam: Present: normal bowel sounds, soft. Absent: ascites, distended, mass, organomegaly, tenderness - Extremities Exam Extremities exam: Present: normal inspection, full ROM, edema - Back Exam Back exam: Present: normal inspection - Neurological Exam Neurological exam: Present: alert, oriented X3 - Psychiatric Psychiatric exam: Present: normal affect, normal mood - Skin Skin exam: Present: normal color, warm, dry Results - Labs CBC & BMP: 08/24/16 06:48 08/24/16 06:48 Lab Results: I have reviewed the past 24 hour labs
--- NOTE | 2016-08-24 09:40 | Hospitalist Progress Note ---
Assessment and Plan - Time spent with patient Time spent with patient: Greater than 30 minutes (1) Bilateral lower extremity edema Status: Acute Assessment and plan: 71-year-old -[place] male admitted by Dr. Cason from the ED with shortness of breath due to ascites and bilateral lower extremity edema. Patient has been followed by Dr. Escalante and is on multiple diuretics. Patient had a initial appointment for evaluation by Dr. Brizuela on 08/26/2016 scheduled. Will admit the patient to monitored bed, consult Dr. Escalante and Dr. Brizuela for evaluation. Will restart his home medicines. Will await results of CT scan and cultured paracentesis. We will go ahead and start the patient on some antibiotics for erythema and induration surrounding umbilicus. This is all been discussed with Dr. Cason. Further recommendations to follow. 08/24/16 CT the abdomen and pelvis showing bacterial peritonitis/peritoneal abscess. Patient's CEA is normal, white count up to 17, and his total bilirubin has doubled overnight to 4.8.. Dr. Painter from surgery has ordered a barium enema to evaluate for any masses. They also will check with IR to see if it is feasible to place a percutaneous drainage catheter. Antibiotics have been switched to Zosyn and Flagyl. Patient still may require surgery. Dr. Brizuela has also seen the patient and he feels since the serum ascites albumin gradient is low, it is consistent with inflammatory or malignant etiology. He recommended continuing the IV antibiotics and awaiting culture data and to repeat the paracentesis on Tuesday. If the ascites fluid is not improving it would suggest secondary bacterial peritonitis with suspected perforation and laparoscopy would be recommended. Dr. Serrano has also seen the patient for Dr. Escalante. He has consulted sleep medicine for suspected NGHIA, added spironolactone and IV Lasix. Appreciate consultants help with this patient. Patient has been made n.p.o. for further testing this morning. Further recommendations to follow per Dr. Cason. Current Visit: Yes (2) Leukocytosis Status: Acute Current Visit: Yes (3) Hyperbilirubinemia Status: Acute Current Visit: Yes (4) CHF (congestive heart failure) Status: Acute Current Visit: Yes (5) Dyspnea Status: Acute Current Visit: Yes (6) Ascites Status: Acute Current Visit: Yes Hospitalist: Subjective Interval history: Patient sitting up on bedside commode this morning. He feels so much better since that fluid was taken off yesterday. He ate a good breakfast and is comfortable. He states he still does have some tenderness around the umbilicus and generalized soreness throughout the abdomen. He denies any shortness of breath this morning. Exam - Constitutional Vitals: Period Temp Pulse Resp BP Sys/Dorado Pulse Ox Last 24 Hr 97.1 F-99.4 F 77-102 18-24 82-103/41-60 93-100 Exam: 71-year-old -[place] male, no acute distress, alert and oriented Chest clear CV regular rate and rhythm Abdomen distended, tense, erythema and induration around the umbilicus has extended inferiorly. Extremities with 4+ pitting edema Results - Labs CBC & BMP: 08/24/16 06:48 08/24/16 06:48 Lab Results: I have reviewed the past 24 hour labs - Diagnostic Findings Procedure: CT Abdomen and Pelvis: report reviewed by me, image reviewed by me ( Large fluid collection filling the peritoneal cavity with thickening of the peritoneal lining, possible omental caking and extensive debris with air noted. Could represent spontaneous bacterial peritonitis cyst/peritoneal abscess. Bowel perforation cannot be excluded. No definite evidence of small bowel obstruction.) Quality Measures - Stroke Symptom Onset Unknown: No
[2016-08-24] MEDS: PIPERACILLIN/TAZOBACTAM 3,375 MG in SODIUM CHLORIDE 0.9% 100 ML IV SCH ×2 (09:47→17:18)
--- NOTE | 2016-08-24 10:47 | Pathology Report from [facility] ---
ACCESSION # : [id number] PATIENT NAME : Dion Dale ORDERING DR : Favio Morrison MD CLINICAL HX: Ascites POST-OP DX: Same SPECIMEN INFO: Fluid- Peritoneal "B" - 1000 mls purulent opaque dark straw with foul odor CLASS: I CLASS COMMENTS: Marked acute inflammatory exudate and bacteria CELL BLOCK: Same CLASS LEGEND: CLASS 0 Material inadequate for diagnosis because of (see comment) CLASS I Absence of atypical or abnormal cells CLASS II Atypical Cytology but no evidence of malignancy CLASS III Cytology suggestive of but not conclusive for malignancy CLASS IV Cytology strongly suggestive of malignancy CLASS V Cytology conclusive for malignancy SERVICE DATE: 08/23/2016 REPORT DATE: 08/24/2016 PATHOLOGIST: Carey Paez
--- NOTE | 2016-08-24 10:47 | Pathology Report from [facility] ---
ACCESSION # : [id number] PATIENT NAME : Dion Dale ORDERING DR : Favio Morrison MD CLINICAL HX: Ascites POST-OP DX: Same SPECIMEN INFO: Fluid- Peritoneal "A"- 70 mls malodorous hazy kasie CLASS: I CLASS COMMENTS: Fibrin and marked acute inflammationCELL BLOCK: Same CLASS LEGEND: CLASS 0 Material inadequate for diagnosis because of (see comment) CLASS I Absence of atypical or abnormal cells CLASS II Atypical Cytology but no evidence of malignancy CLASS III Cytology suggestive of but not conclusive for malignancy CLASS IV Cytology strongly suggestive of malignancy CLASS V Cytology conclusive for malignancy SERVICE DATE: 08/23/2016 REPORT DATE: 08/24/2016 PATHOLOGIST: Carey Paez
--- NOTE | 2016-08-24 11:01 | Cardiology Progress Note ---
Assessment and Plan (1) Ascites Status: Acute Assessment and plan: 1. 71-year-old BM with 3-4 months of increased lower extremity edema and ascites/anasarca feeling much better after large volume paracentesis earlier today. 2. 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 Consult sleep medicine. 3. Mild cardiomyopathy with ejection fraction of 40% July 2016 in the clinic; he is followed Dr. Escalante 4. Add spironolactone 25 mg twice a day 5. Add IV Lasix 40 mg twice a day 6. Check electrolytes and renal function 08/24/2016: 1. Improved abdominal fullness status post paracentesis 2. Normal LV systolic function with EF 55% yesterday, without enlarged right ventricle 3. At least moderate pulmonary hypertension suggested by echocardiogram (PAP 40 -53 mmHg) 4. Reduce IV Lasix to once daily, continue spironolactone at 25 millions per day. 5. GI workup in process 6. Periodically check Electrolytes and renal function 7. We'll follow with you. Qualifiers: Ascites type: malignant Qualified Code(s): R18.0 - Malignant ascites (2) Bilateral lower extremity edema Status: Acute (3) CHF (congestive heart failure) Status: Deleted (4) Dyspnea Status: Acute Cardiology - PN: Subj Interval history: Mr. Dale reports his abdomen is less full, and he believes swelling is a little better. He is not having chest discomfort. He has dyspnea on exertion still. He is having any chest pain presyncope or syncope. He does have some mild orthostasis. Exam (Progress Note) - Constitutional Vitals: Period Temp Pulse Resp BP Sys/Dorado Pulse Ox Last 24 Hr 97.1 F-99.4 F 77-105 18-24 82-118/41-71 93-100 General appearance: no acute distress, over weight - Head Head exam: Present: normal inspection, normocephalic, atraumatic - Respiratory Respiratory exam: Present: clear to auscultation bilaterally. Absent: rhonchi, stridor, wheezes - Cardiovascular Cardiovascular exam: Present: JVD, regular rate and rhythm. Absent: diastolic murmur, rubs - GI/Abdominal GI/Abdominal exam: Absent: tenderness, soft - Extremities Exam Extremities exam: Present: edema (2-3+ lower extremity edema) Result/EKG - Labs CBC & BMP: 09/01/16 04:45 09/01/16 04:45 Labs: Laboratory Results - last 24 hr 08/23/16 08/23/16 08/24/16 14:26 15:40 06:48 WBC RBC Hgb Hct MCV MCH MCHC RDW Plt Count MPV Neut % (Auto) Lymph % (Auto) Mingo % (Auto) Eos % (Auto) Baso % (Auto) Neut # (Auto) Lymph # (Auto) Mingo # (Auto) Eos # (Auto) Baso # (Auto) Total Counted Immature Gran % Nucleated RBC % Immature Gran # Segmented Neutrophils Band Neutrophils Lymphocytes Monocytes Basophils Nucleated RBCs # Platelet Estimate Hypochromasia Microcytosis Ovalocytes Morphology Comment Sodium 133 L Potassium 4.0 Chloride 96 L Carbon Dioxide 25 Anion Gap 16.0 H BUN 51 H Creatinine 1.20 GFR Calculation 81 BUN/Creatinine Ratio 42.00 H Glucose 111 H Calculated Osmolality 280.4 Calcium 8.7 Magnesium 1.9 Total Bilirubin AST ALT Alkaline Phosphatase Total Protein Albumin Globulin Albumin/Globulin Ratio Carcinoembryonic Ag 1.1 TSH 3rd Generation Hepatitis A IgM Ab Negative Hep Bs Antigen Negative Hep B Core IgM Ab Negative Hepatitis C Antibody Negative 08/24/16 08/24/16 06:48 06:48 WBC 17.1 H RBC 4.57 Hgb 13.1 L Hct 41.4 L MCV 90.6 MCH 29 MCHC 31.6 L RDW 15.6 Plt Count 327 MPV 10.5 Neut % (Auto) 72.6 Lymph % (Auto) 11.6 L Mingo % (Auto) 13.8 H Eos % (Auto) 0.1 Baso % (Auto) 0.3 Neut # (Auto) 12.4 H Lymph # (Auto) 2.0 Mingo # (Auto) 2.4 H Eos # (Auto) 0.0 Baso # (Auto) 0.1 Total Counted 100 Immature Gran % 1.6 Nucleated RBC % 0.0 Immature Gran # 0.28 Segmented Neutrophils 63 Band Neutrophils 7 Lymphocytes 12 L Monocytes 18 H Basophils 0.0 Nucleated RBCs # 0.00 Platelet Estimate Adequate Hypochromasia 1+ Microcytosis Slight Ovalocytes Slight Morphology Comment Sodium 133 L Potassium 4.0 Chloride 95 L Carbon Dioxide 26 Anion Gap 16.0 H BUN 50 H Creatinine 1.20 GFR Calculation 81 BUN/Creatinine Ratio 41.00 H Glucose 111 H Calculated Osmolality 279.4 Calcium 8.6 Magnesium Total Bilirubin 4.80 H AST 29 ALT 28 Alkaline Phosphatase 126 H Total Protein 6.1 L Albumin 2.1 L Globulin 4.0 H Albumin/Globulin Ratio 0.5 L Carcinoembryonic Ag TSH 3rd Generation 2.850 Hepatitis A IgM Ab Hep Bs Antigen Hep B Core IgM Ab Hepatitis C Antibody Quality Measures - Stroke Symptom Onset Unknown: No
[2016-08-24] MEDS: ENOXAPARIN 30 MG/0.3 ML SYRINGE SUBCUT SCH (11:52)
--- NOTE | 2016-08-24 12:59 | Sleep Medicine Consult ---
Assessment and Plan (1) Unspecified sleep apnea Status: Acute Assessment and plan: His symptoms certainly are not dramatic for sleep apnea but with his comorbidities, evaluation is indicated. When stable medically, we could proceed with HST while hospitalized or set him up for outpatient sleep study after discharge. Thank you for this consult and the opportunity to participate in his care. Current Visit: Yes History of Present Illness Chief complaint: Sleep apnea History of present illness: Mr. Dale is a 71 year old male admitted with shortness of breath with a history of lower extremity edema and ascites. Dr. Serrano consulted sleep medicine out of concern for possible sleep apnea as a contributing factor. Patient is unaware of any history of snoring or awakening from sleep short of breath. He states that he usually sleeps well. He states the only thing that really interrupts his sleep as his need to urinate. He estimates that he urinates about 6 times a night. He does easily take naps during the day and is bothered by sleepiness. He is unaware of any issues with restlessness of his legs or leg jerks. He lives alone and is never been told that he snores or stops breathing during his sleep. He has never had a sleep evaluation in the past. Home Medications Medication Instructions Recorded Confirmed Type Captopril 6.25 mg PO BID 08/23/16 08/23/16 History Carvedilol 6.25 mg PO BID 08/23/16 08/23/16 History Spironolactone [Aldactone] 12.5 mg PO DAILY 08/23/16 08/23/16 History metOLazone [Metolazone] 5 mg PO DAILY 08/23/16 08/23/16 History Allergies Allergy/AdvReac Type Severity Reaction Status Date / Time No Known Allergies Allergy Unverified 08/23/16 06:53 Review of systems: Otherwise unremarkable from a sleep standpoint. Exam (Pulmonay) H&P - Constitutional Vitals: Period Temp Pulse Resp BP Sys/Odrado Pulse Ox Last 24 Hr 97.1 F-98.3 F 77-105 18-24 82-118/41-71 93-100 Exam: He is alert and oriented and in no acute distress. Pupils equal round reactive to light and accommodation. Extraocular movements intact. Oropharynx with a class III Mallampati exam. Neck is supple without adenopathy or thyromegaly. Chest with fair air movement without significant wheeze or rhonchi. Cardiac exam reveals a regular rhythm without murmur or gallop. Abdomen protuberant without tenderness. No palpable hepatosplenomegaly is appreciable. Extremities with 2+ pitting edema bilaterally. Neurologically, he is grossly intact. He moves all extremities with good strength and ambulates without assistance. Medical,Surgical,& Family Hx - Medical History Cardio: History of: CHF, Hypertension Musculoskeletal: No history of: Amputation - Surgical History Cardiac Surgeries: Patient Denies: Cardiac Catheterization Thoracic Surgeries: Patient denies;: Organ Transplant, Lobectomy Neurologic Surgeries: Patient denies: Neurologic Surgery Abdominal Surgeries: Surgical HX of: Appendectomy Patient denies: Abdominal Surgery, Colonoscopy Reproductive Surgeries: Patient denies;: Genitourinary Surgery - Family History Family History: Reports;: Family Diabetes (Sister), Family Hypertension ( Siblings) - Social History Smoking Status: Never smoker Frequency of Alcohol Use: None Type of Drug Use: None Results - Labs CBC & BMP: 08/24/16 06:48 08/24/16 06:48 Lab Results: I have reviewed the past 24 hour labs Quality Measures - Stroke Symptom Onset Unknown: No
[2016-08-24] MEDS ORDERED: ceFAZolin 2,000 MG in PREMIX 1 EACH IV ONE (14:00)
--- NOTE | 2016-08-24 14:21 | XRay Report ---
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 A few diverticula have contrast present. There is a large air collection in the lower abdomen that does not appear to be bowel correlating with the peritoneal abscess seen on CT. Impression: Retained colon contrast as described above. PROCEDURE INTERPRETED AT [facility] DEPARTMENT OF RADIOLOGY Final Report Signed by: Dr. Saúl Rubio
[2016-08-24] MEDS: METOPROLOL TARTRATE 25 MG TABLET PO SCH ×2 (14:27→20:52)
--- NOTE | 2016-08-24 16:03 | Physician Query Form ---
CLICK EDIT DOCUMENT TO SELECT QUERY ANSWER --> OK --> SIGN Haley Cortes RN Clinical Supervisor [employer] W) [phone] (f) [phone] [email or web address] PROVIDERS: Make your selection(s) from the choices in EACH section by typing an "x" and enter comments in the comment section. Please use your independent medical judgment in providing your response. This request does not imply that any particular answer is desired or expected. CLINICAL INDICATORS: (Providers should not edit this section) Based on documentation of "acute CHF", [id number], Echo showed EF of 50-55%, treated with IV Lasix. Please provide further specificity regarding CHF. TYPE: ( ) Systolic ( X) Diastolic ( ) Combined Systolic/Diastolic ( ) Other, please specify: ( ) Clinically unable to determine ( ) The patient does NOT have CHF COMMENTS: Use of terms such as suspected, likely, or probable (associated with a specific diagnosis that is being evaluated, monitored, or treated as if it exists) are acceptable and can be restated in the discharge summary if not ruled out. [facility]
[2016-08-25] MEDS: METOPROLOL TARTRATE 25 MG TABLET PO SCH ×3 (00:30→15:11)
[2016-08-25] MEDS: PIPERACILLIN/TAZOBACTAM 3,375 MG in SODIUM CHLORIDE 0.9% 100 ML IV SCH ×2 (01:36→08:46)
[2016-08-25] MEDS: metroNIDAZOLE INJ 500 MG in PREMIX 1 EACH IV SCH ×4 (05:48→22:13)
[2016-08-25 06:08] LABS: Basophils # 0.1 10*3/uL (0.0-0.2); Basophils % 0.3 % (0.0-0.8); Eosinophils % 0.1 % (0.00-10.9); Hematocrit 37.3 VOL% (42.0-52.0); Hemoglobin 11.9 GM/DL (14.0-18.0); Immature Granulocytes % 2.3 %; Immature Granulocytes Absolute 0.42 #; Lymphocytes # 3.2 10*3/uL (1.4-4.0); Lymphocytes % 17.3 % (21.2-54.2); Mean Corpuscular HGB Conc 31.9 GM/DL (32-36); Mean Corpuscular Hemoglobin 30 PG (27-34); Mean Corpuscular Volume 92.6 FL (87-102); Mean Platelet Volume 10.6 FL (9.6-12.0); Monocytes # 3.2 10*3/uL (0.11-0.8); Monocytes % 17.5 % (1.7-12.7); Neutrophils # 11.5 10*3/uL (1.4-7.4); Neutrophils % 62.5 % (38.7-73.9); Platelet Count 355 T/CUMM (130-400); Red Blood Count 4.03 MC/CUMM (3.8-5.5); Red Cell Distribution Width 15.7 % (9.3-17.3); White Blood Count 18.3 T/CUMM (4-12)
[2016-08-25 06:22] LABS: INR 1.6; PT Patient Result 17.6 SECS; Partial Thromboplastin Time 36.2 SECS (0-40)
[2016-08-25 06:29] LABS: Lymphocytes 10 % (20-55); Platelet Estimate Adequate; Segmented Neutrophils 75 % (50-85); Total Cells Counted 100
[2016-08-25 06:30] LABS: Hypochromasia 1+; Microcytosis Slight; Ovalocytes Slight
[2016-08-25 06:48] LABS: Albumin 2.1 G/DL (3.4-5.0); Bilirubin,Total 4.1 MG/DL (0.2-1.0); Calcium 8.5 MG/DL (8.5-10.1); Osmolality,Calculated 285.4 MOS/KG (273-304); Potassium 4.1 MMOL/L (3.5-5.1); Total Protein 6.2 G/DL (6.4-8.3)
--- NOTE | 2016-08-25 08:41 | Gastrointestinal Progress Note ---
Assessment and Plan (1) Ascites Status: Acute Assessment and plan: 08/25-WBC 19.3, afebrile. For exploratory lap today with Dr dixon. Plan and addendum to follow by Dr brizuela. 08/24-Afebrile, WBC elevated at 17 today. Wt down slightly. Continue to monitor at present time and consider repeat paracentesis on tomorrow. Plan and addendum to follow by Dr Brizuela. 08/23-3 month history of increased edema and abdominal distention. Post paracentesis with 2 L of malodorous fluid with debris noted with gram-positive cocci and few gram-positive rods. Abdominal ultrasound showed normal liver size , no acute gallbladder findings. CT of abdomen shows peritoneal cavity thickening with questionable omental caking. Bilirubin 2.4, alkaline phosphatase 133, albumin 2.1. INR 1.5. IV Flagyl and Ancef have been started. Check hepatitis panel. Plan an addendum to followed by Dr. Brizuela. Current Visit: Yes Gastroenterology - PN: Subj Interval history: CC: Ascites Pt is seen, sitting on side of bed awake and alert. He denies any abdominal pain. He states he rested well overnight. Paracentesis cancelled today due to he is for laparascopic surgery today to further explore the source of his abdominal pain and ascites. Abdomen is soft, distended, nontender. WBC 19.3, CEA 1.1. ROS: Denies SOB or chest pain Exam (Progress Note) - Constitutional Vitals: Period Temp Pulse Resp BP Sys/Dorado Pulse Ox Last 24 Hr 97.3 F-98.7 F 81-97 14-18 90-103/55-64 98-100 - Other Additional findings: General appearance: normal weight, no acute distress - Head Head exam: Present: normal inspection, normocephalic - Eye Eye exam: Present: other (lids and conjunctiva unremarkable). Absent: scleral icterus - ENT ENT exam: Present: normal exam, normal oropharynx - Neck Neck exam: Present: normal inspection - Respiratory Respiratory exam: Present: clear to auscultation bilaterally. Absent: rales, rhonchi, wheezes - Cardiovascular Cardiovascular exam: Present: regular rate and rhythm. Absent: diastolic murmur , JVD, systolic murmur - GI/Abdominal GI/Abdominal exam: Present: normal bowel sounds, soft. Absent: ascites, distended, mass, organomegaly, tenderness - Extremities Exam Extremities exam: Present: normal inspection, full ROM, edema - Back Exam Back exam: Present: normal inspection - Neurological Exam Neurological exam: Present: alert, oriented X3 - Psychiatric Psychiatric exam: Present: normal affect, normal mood - Skin Skin exam: Present: normal color, warm, dry Results - Labs CBC & BMP: 08/25/16 05:43 08/25/16 05:43 Lab Results: I have reviewed the past 24 hour labs
[2016-08-25] MEDS: SPIRONOLACTONE 25 MG TABLET PO SCH (08:45)
[2016-08-25] MEDS: FUROSEMIDE 40 MG/4 ML VIAL IV SCH (08:47)
[2016-08-25] MEDS: PANTOPRAZOLE 40 MG TABLET PO SCH (08:47)
[2016-08-25] MEDS: ENOXAPARIN 30 MG/0.3 ML SYRINGE SUBCUT SCH (11:36)
--- NOTE | 2016-08-25 14:41 | Cardiology Progress Note ---
Michael Cornejo April, RN, am scribing for, and in the presence of, Melva Koehler NP 14:35. <Melva Koehler - Last Filed: 08/25/16 14:36> Assessment and Plan (1) Ascites Status: Acute Assessment and plan: Assessment and plan 08/23/2016: 1. 71-year-old BM with 3-4 months of increased lower extremity edema and ascites/anasarca feeling much better after large volume paracentesis earlier today. 2. 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 Consult sleep medicine. 3. Mild cardiomyopathy with ejection fraction of 40% July 2016 in the clinic; he is followed Dr. Escalante 4. Add spironolactone 25 mg twice a day 5. Add IV Lasix 40 mg twice a day 6. Check electrolytes and renal function 08/24/2016: 1. Improved abdominal fullness status post paracentesis 2. Normal LV systolic function with EF 55% yesterday, without enlarged right ventricle 3. At least moderate pulmonary hypertension suggested by echocardiogram oh ( PAP 40-53 mmHg) 4. Reduce IV Lasix to once daily, continue spironolactone at 25 millions per day. 5. GI workup in process 6. Periodically check Electrolytes and renal function 7. We'll follow with you. 08/25/2016: Current Visit: Yes (2) Bilateral lower extremity edema Status: Acute Current Visit: Yes (3) CHF (congestive heart failure) Status: Acute Current Visit: Yes (4) Dyspnea Status: Acute Current Visit: Yes Cardiology - PN: Subj Interval history: Personnel Technician: Dr. Escalante Mr. Dale is seen sitting up in chair this morning. He denies chest pain, shortness of breath, palpitations, or dizziness. Continues to have a good deal of swelling his abdomen and bilateral lower extremities. He is scheduled for an exploratory lap today with Dr. Painter today. Vital signs have been stable. 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 Beta-blockade has been added since that time. Today, when patient was being readied for surgery, patient had an episode of paroxysmal atrial tachycardia (not ventricular tachycardia) and we have been asked to reassess the patient prior to surgery. Recommendations include continue utilization of beta-blockade to quiesce arrhythmias. Certainly , he has untreated sleep apnea. Adequate oxygen delivery during surgery is imperative as his arrhythmia may be irritated from his severe obstructive sleep apnea. He remains at moderate risk for cardiac complications during procedure. These risks are not prohibitive given the significance of the upcoming exploratory laparotomy. We are happy to follow along and make recommendations accordingly. Exam (Progress Note) - Constitutional Vitals: Period Temp Pulse Resp BP Sys/Dorado Pulse Ox Last 24 Hr 97.3 F-98.7 F 81-97 14-18 90-103/55-64 98-100 General appearance: no acute distress, morbidly obese - Head Head exam: Absent: abrasion, hematoma - Eye Eye exam: Absent: periorbital swelling, laceration to eyelids - Neck Neck exam: Absent: tenderness - Respiratory Respiratory exam: Present: clear to auscultation bilaterally. Absent: accessory muscle use, chest wall tenderness - Cardiovascular Cardiovascular exam: Present: regular rate and rhythm. Absent: systolic murmur - GI/Abdominal GI/Abdominal exam: Present: ascites, firm, hypoactive bowel sounds - Extremities Exam Extremities exam: Present: edema (2-3+ to bilateral lower extremities) - Neurological Exam Neurological exam: Present: alert, oriented X3 - Psychiatric Psychiatric exam: Present: normal affect, normal mood - Skin Skin exam: Present: warm, dry Result/EKG - Labs CBC & BMP: 08/25/16 05:43 08/25/16 05:43 Lab Results: I have reviewed the past 24 hour labs Labs: Laboratory Results - last 24 hr 08/24/16 08/25/16 08/25/16 06:48 05:43 05:43 WBC 18.3 H RBC 4.03 Hgb 11.9 L Hct 37.3 L MCV 92.6 MCH 30 MCHC 31.9 L RDW 15.7 Plt Count 355 MPV 10.6 Neut % (Auto) 62.5 Lymph % (Auto) 17.3 L [place] % (Auto) 17.5 H Eos % (Auto) 0.1 Baso % (Auto) 0.3 Neut # (Auto) 11.5 H Lymph # (Auto) 3.2 [place] # (Auto) 3.2 H Eos # (Auto) 0.0 Baso # (Auto) 0.1 Total Counted 100 Immature Gran % 2.3 Nucleated RBC % 0.0 Immature Gran # 0.42 Segmented Neutrophils 75 Lymphocytes 10 L Monocytes 15 Nucleated RBCs # 0.00 Platelet Estimate Adequate Hypochromasia 1+ Microcytosis Slight Ovalocytes Slight Morphology Comment INR 1.6 PT Patient/Control Mix 17.6 Circ Anticoag PTT 36.2 Sodium 133 L Potassium 4.0 Chloride 95 L Carbon Dioxide 26 Anion Gap 16.0 H BUN 50 H Creatinine 1.20 GFR Calculation 81 BUN/Creatinine Ratio 41.00 H Glucose 111 H Calculated Osmolality 279.4 Calcium 8.6 Magnesium Cancelled Total Bilirubin 4.80 H AST 29 ALT 28 Alkaline Phosphatase 126 H Total Protein 6.1 L Albumin 2.1 L Globulin 4.0 H Albumin/Globulin Ratio 0.5 L TSH 3rd Generation 2.850 Blood Type Antibody Screen 08/25/16 08/25/16 05:43 05:43 WBC RBC Hgb Hct MCV MCH MCHC RDW Plt Count MPV Neut % (Auto) Lymph % (Auto) [place] % (Auto) Eos % (Auto) Baso % (Auto) Neut # (Auto) Lymph # (Auto) [place] # (Auto) Eos # (Auto) Baso # (Auto) Total Counted Immature Gran % Nucleated RBC % Immature Gran # Segmented Neutrophils Lymphocytes Monocytes Nucleated RBCs # Platelet Estimate Hypochromasia Microcytosis Ovalocytes Morphology Comment INR PT Patient/Control Mix Circ Anticoag PTT Sodium 133 L Potassium 4.1 Chloride 96 L Carbon Dioxide 27 Anion Gap 14.1 BUN 68 H D Creatinine 1.50 H GFR Calculation 61 BUN/Creatinine Ratio 45.00 H Glucose 96 Calculated Osmolality 285.4 Calcium 8.5 Magnesium 2.0 Total Bilirubin 4.10 H AST 30 ALT 21 Alkaline Phosphatase 102 Total Protein 6.2 L Albumin 2.1 L Globulin 4.1 H Albumin/Globulin Ratio 0.5 L TSH 3rd Generation Blood Type O POSITIVE Antibody Screen Negative - EKG EKG results: interpreted by de EKG shows: sinus rhythm Quality Measures - VTE Contraindication to Pharmacological VTE Prophylaxis: High Risk of Bleeding - Stroke Symptom Onset Unknown: No <Jonny Serrano - Last Filed: 08/25/16 17:49> Assessment and Plan (1) Ascites Status: Acute Current Visit: Yes (2) Bilateral lower extremity edema Status: Acute Current Visit: Yes (3) CHF (congestive heart failure) Status: Acute Current Visit: Yes (4) Dyspnea Status: Acute Current Visit: Yes Exam (Progress Note) - Constitutional Vitals: Period Temp Pulse Resp BP Sys/[place] Pulse Ox Last 24 Hr 97.3 F-97.8 F 50-97 14-20 90-103/55-64 95-100 Result/EKG - Labs CBC & BMP: 08/25/16 05:43 08/25/16 05:43 Labs: Laboratory Results - last 24 hr 08/24/16 08/25/16 08/25/16 06:48 05:43 05:43 WBC 18.3 H RBC 4.03 Hgb 11.9 L Hct 37.3 L MCV 92.6 MCH 30 MCHC 31.9 L RDW 15.7 Plt Count 355 MPV 10.6 Neut % (Auto) 62.5 Lymph % (Auto) 17.3 L [place] % (Auto) 17.5 H Eos % (Auto) 0.1 Baso % (Auto) 0.3 Neut # (Auto) 11.5 H Lymph # (Auto) 3.2 [place] # (Auto) 3.2 H Eos # (Auto) 0.0 Baso # (Auto) 0.1 Total Counted 100 Immature Gran % 2.3 Nucleated RBC % 0.0 Immature Gran # 0.42 Segmented Neutrophils 75 Lymphocytes 10 L Monocytes 15 Nucleated RBCs # 0.00 Platelet Estimate Adequate Hypochromasia 1+ Microcytosis Slight Ovalocytes Slight Morphology Comment INR 1.6 PT Patient/Control Mix 17.6 Circ Anticoag PTT 36.2 Sodium 133 L Potassium 4.0 Chloride 95 L Carbon Dioxide 26 Anion Gap 16.0 H BUN 50 H Creatinine 1.20 GFR Calculation 81 BUN/Creatinine Ratio 41.00 H Glucose 111 H Calculated Osmolality 279.4 Calcium 8.6 Magnesium Cancelled Total Bilirubin 4.80 H AST 29 ALT 28 Alkaline Phosphatase 126 H Total Protein 6.1 L Albumin 2.1 L Globulin 4.0 H Albumin/Globulin Ratio 0.5 L TSH 3rd Generation 2.850 Blood Type Antibody Screen 08/25/16 08/25/16 05:43 05:43 WBC RBC Hgb Hct MCV MCH MCHC RDW Plt Count MPV Neut % (Auto) Lymph % (Auto) [place] % (Auto) Eos % (Auto) Baso % (Auto) Neut # (Auto) Lymph # (Auto) [place] # (Auto) Eos # (Auto) Baso # (Auto) Total Counted Immature Gran % Nucleated RBC % Immature Gran # Segmented Neutrophils Lymphocytes Monocytes Nucleated RBCs # Platelet Estimate Hypochromasia Microcytosis Ovalocytes Morphology Comment INR PT Patient/Control Mix Circ Anticoag PTT Sodium 133 L Potassium 4.1 Chloride 96 L Carbon Dioxide 27 Anion Gap 14.1 BUN 68 H D Creatinine 1.50 H GFR Calculation 61 BUN/Creatinine Ratio 45.00 H Glucose 96 Calculated Osmolality 285.4 Calcium 8.5 Magnesium 2.0 Total Bilirubin 4.10 H AST 30 ALT 21 Alkaline Phosphatase 102 Total Protein 6.2 L Albumin 2.1 L Globulin 4.1 H Albumin/Globulin Ratio 0.5 L TSH 3rd Generation Blood Type O POSITIVE Antibody Screen Negative Rodo Cornejo Bonnie E, NP, personally performed the services described in this documentation, ascribed by Luciana Rodriguez RN in my presence, and it is both accurate and complete .
[2016-08-25] MEDS: CIPROFLOXACIN INJ 400 MG in PREMIX 1 EACH IV SCH (15:11)
--- NOTE | 2016-08-25 17:40 | Sleep Medicine Progress Note ---
Assessment and Plan (1) Unspecified sleep apnea Status: Acute Assessment and plan: Given the complexity of his current medical illness, sleep evaluation will be postponed. He will be set up for follow-up in the sleep clinic after discharge for sleep study. Current Visit: Yes Sleep Medicine Subjective Interval history: Patient apparently to undergo surgery today for abdominal exploration due to bacterial peritonitis. With this ongoing, we will have to postpone sleep evaluation until he recovers. Certainly if he develops any issues with respiratory difficulty perioperatively, he could be placed on CPAP therapy with an auto titration mode. Would defer management of pulmonary a postoperative respiratory difficulty to pulmonary medicine or primary service. Exam (Progress Note) - Constitutional Vitals: Period Temp Pulse Resp BP Sys/Dorado Pulse Ox Last 24 Hr 97.3 F-97.8 F 50-97 14-20 90-103/55-64 95-100 Exam: Patient is alert and responsive in no acute distress. Chest with good air movement and no focal wheeze or rhonchi. Cardiac exam reveals a regular rhythm without murmur or gallop. Abdomen distended nontender extremities with 1+ pitting edema. Neurologically, grossly intact. He answers all questions appropriately. Results - Labs CBC & BMP: 08/25/16 05:43 08/25/16 05:43 Lab Results: I have reviewed the past 24 hour labs
--- NOTE | 2016-08-25 18:36 | Event Note ---
08/25/2016 1830 hrs. Were unable to do patient's surgery tonight due to emergency bleeding that is going to delay surgery further. Will go ahead and let him have some liquids tonight and set him up try to do him tomorrow.
--- NOTE | 2016-08-25 19:27 | Hospitalist Progress Note ---
Assessment and Plan (1) Ascites Status: Acute Assessment and plan: The patient was scheduled for exploratory laparotomy today. Unfortunately, the operating room was not available to emergency cases requiring priority. Dr. Painter is arranging for surgery tomorrow morning. Current Visit: Yes Qualifiers: Ascites type: malignant Qualified Code(s): R18.0 - Malignant ascites (2) Bilateral lower extremity edema Status: Acute Current Visit: Yes (3) Abdominal mass Status: Acute Current Visit: Yes Qualifiers: Abdominal location: periumbilical Qualified Code(s): R19.05 - Periumbilic swelling, mass or lump Hospitalist: Subjective Interval history: Mr. Dale has no new symptoms. He remains with abdominal protuberance. Exam - Constitutional Vitals: Period Temp Pulse Resp BP Sys/Dorado Pulse Ox Last 24 Hr 97.3 F-97.8 F 50-97 14-20 90-103/55-64 95-100 General appearance: no acute distress - Respiratory Respiratory exam: Present: clear to auscultation bilaterally - Cardiovascular Cardiovascular exam: Present: regular rate and rhythm Results - Labs CBC & BMP: 08/25/16 05:43 08/25/16 05:43 Lab Results: I have reviewed the past 24 hour labs Quality Measures - VTE Contraindication to Pharmacological VTE Prophylaxis: High Risk of Bleeding - Stroke Symptom Onset Unknown: No
[2016-08-25] MEDS: METOPROLOL SUCCINATE XL 50 MG TABLET PO SCH (22:14)
[2016-08-25] MEDS: LACTATED RINGERS 1,000 ML IV SCH (22:14)
[2016-08-26] MEDS: CIPROFLOXACIN INJ 400 MG in PREMIX 1 EACH IV SCH ×4 (00:47→23:00)
[2016-08-26] MEDS: metroNIDAZOLE INJ 500 MG in PREMIX 1 EACH IV SCH ×4 (03:05→20:30)
[2016-08-26 06:00] LABS: Basophils # 0.1 10*3/uL (0.0-0.2); Basophils % 0.3 % (0.0-0.8); Eosinophils % 0.1 % (0.00-10.9); Hematocrit 33.9 VOL% (42.0-52.0); Immature Granulocytes % 2.4 %; Immature Granulocytes Absolute 0.35 #; Lymphocytes # 3.1 10*3/uL (1.4-4.0); Lymphocytes % 21.6 % (21.2-54.2); Mean Corpuscular HGB Conc 32.4 GM/DL (32-36); Mean Corpuscular Hemoglobin 29 PG (27-34); Mean Corpuscular Volume 89.2 FL (87-102); Mean Platelet Volume 10.7 FL (9.6-12.0); Monocytes # 3.1 10*3/uL (0.11-0.8); Monocytes % 21.4 % (1.7-12.7); Neutrophils # 7.9 10*3/uL (1.4-7.4); Neutrophils % 54.2 % (38.7-73.9); Platelet Count 377 T/CUMM (130-400); Red Cell Distribution Width 15.7 % (9.3-17.3); White Blood Count 14.5 T/CUMM (4-12)
[2016-08-26 06:04] LABS: Partial Thromboplastin Time 36.9 SECS (0-40)
[2016-08-26 06:07] LABS: Band Neutrophils 26 % (0-10); Hypochromasia 2+; Lymphocytes 24 % (20-55); Microcytosis 2+; Myelocytes 1 %; Platelet Estimate Adequate; Polychromasia Slight; Segmented Neutrophils 41 % (50-85); Total Cells Counted 100
[2016-08-26 06:09] LABS: INR 1.9
[2016-08-26 06:11] LABS: PT Patient Result 21.2 SECS
[2016-08-26 06:16] LABS: Albumin 2.2 G/DL (3.4-5.0); Bilirubin,Total 3.3 MG/DL (0.2-1.0); Calcium 8.4 MG/DL (8.5-10.1); Osmolality,Calculated 286.2 MOS/KG (273-304); Potassium 3.5 MMOL/L (3.5-5.1); Total Protein 6.1 G/DL (6.4-8.3)
[2016-08-26] MEDS ORDERED: ceFAZolin 2,000 MG in PREMIX 1 EACH IV ONE (07:00)
[2016-08-26] MEDS ORDERED: ROCURONIUM 100 MG/10 ML VIAL IV ONE (07:15)
[2016-08-26] MEDS ORDERED: ONDANSETRON 4 MG/2 ML VIAL ONE (07:15)
[2016-08-26] MEDS ORDERED: PHENYLEPHRINE 1 MG/10 ML SYRINGE IV ONE (07:15)
[2016-08-26] MEDS ORDERED: KETOROLAC 30 MG/1 ML VIAL ONE (07:15)
[2016-08-26] MEDS ORDERED: DEXAMETHASONE 4 MG/1 ML VIAL ONE (07:15)
[2016-08-26] MEDS ORDERED: PROPOFOL 200 MG/20 ML VIAL IV ONE (07:15)
[2016-08-26] MEDS ORDERED: PHENYLEPHRINE 50 MG/5 ML VIAL ONE (07:15)
[2016-08-26] MEDS: LACTATED RINGERS 1,000 ML IV SCH ×2 (07:15→18:30)
[2016-08-26] MEDS ORDERED: LIDOCAINE 2% 5 ML VIAL ONE (07:15)
[2016-08-26] MEDS ORDERED: SUCCINYLCHOLINE 200 MG/10 ML VIAL ONE (07:15)
[2016-08-26] MEDS ORDERED: BUPIVACAINE MPF 0.25% /EPI 30 ML VIAL ONE (08:23)
[2016-08-26] MEDS ORDERED: ACETAMINOPHEN 325 MG TABLET PO PRN (09:21)
[2016-08-26] MEDS ORDERED: PROPOFOL 1,000 MG/100 ML BOTTLE IV ONE (09:41)
--- NOTE | 2016-08-26 09:49 | Operative Note ---
Date of procedure: 08/26/16 Pre-op diagnosis: Infectious peritonitis of unknown etiology Post-op diagnosis: same Procedure: Laparoscopic exploration with drainage of abdomen and placement of drains Anesthesia: GETA, local (0.25% Marcaine with epinephrine mixed [id number] 1% Xylocaine plain) Surgeon / Physician: Jaime Painter Digital Photo Printer: Felipa Navarro Estimated blood loss: other (20 cc) Specimens: other (Cultures) Condition: stable Disposition: ICU Results - Labs CBC & BMP: 08/26/16 05:15 08/26/16 05:15 Discharge Plan - Discharge Medications No Action Carvedilol 6.25 mg PO BID Captopril 6.25 mg PO BID Spironolactone [Aldactone] 12.5 mg PO DAILY metOLazone [Metolazone] 5 mg PO DAILY - Follow Up or Referral - Forms/Instructions
[2016-08-26] MEDS: PROPOFOL 1,000 MG/100 ML BOTTLE IV SCH ×4 (10:00→22:00)
[2016-08-26] MEDS ORDERED: ePHEDrine 50 MG/ML AMP ONE (10:01)
[2016-08-26] MEDS ORDERED: LACTATED RINGERS 1,000 ML IV ONE (10:01)
[2016-08-26] MEDS ORDERED: MIDAZOLAM 2 MG/2 ML VIAL ONE (10:01)
[2016-08-26] MEDS ORDERED: SODIUM CHLORIDE 0.9% 500 ML IV ONE (10:01)
[2016-08-26] MEDS ORDERED: SEVOFLURANE 1 UNIT/15 MINUTE INH ONE (10:09)
[2016-08-26 10:14] LABS: ABG HCO3 21.1 MMOL/L (20-26); ABG Oxygen Saturation 99.2 % (95-100); ABG PH 7.311 (7.35-7.45); ABG TCO2 20.1 MMOL/L (23-27)
--- NOTE | 2016-08-26 10:15 | XRay Report ---
History: Postop on ventilator Date: 08/26/2016 Study: Chest x-ray AP portable Comparison exam: August 23, 2016 The endotracheal tube is well-positioned. The right IJ central line is well positioned at the atrial caval junction region. There is no pneumothorax. There is continued cardiomegaly. The mediastinal contours are stable. The exam was performed in shallow inspiration with some mild atelectatic changes in the lower lungs. There is no mae pneumonia. There is no increase in pleural effusion. There is [id number] thoracic spondylosis. Impression: No evidence of a pneumothorax. The supporting tubes are well positioned. Shallow inspiration with mild atelectatic changes in the lung bases PROCEDURE INTERPRETED AT [facility] DEPARTMENT OF RADIOLOGY Final Report Signed by: Dr. Hattie Brizuela
[2016-08-26] MEDS: SODIUM CHLORIDE 0.9% INTRAPERIT SCH ×2 (11:12→11:13)
[2016-08-26] MEDS: CEFTAZIDIME INTRAPERIT SCH ×2 (11:12→11:13)
[2016-08-26] MEDS: SPIRONOLACTONE 25 MG TABLET PO SCH (11:19)
[2016-08-26] MEDS: PANTOPRAZOLE 40 MG TABLET PO SCH (11:20)
[2016-08-26] MEDS: FUROSEMIDE 40 MG/4 ML VIAL IV SCH (11:20)
[2016-08-26] MEDS: PHENYLEPHRINE DRIP 40 MG/250 ML PREMIX IV SCH ×3 (11:20→16:37)
[2016-08-26] MEDS: METOPROLOL SUCCINATE XL 50 MG TABLET PO SCH ×2 (11:20→20:32)
[2016-08-26] MEDS: SODIUM CHLORIDE 0.9% IV SCH ×2 (11:22→19:30)
[2016-08-26] MEDS: CEFTAZIDIME IV SCH ×2 (11:22→19:30)
--- NOTE | 2016-08-26 11:31 | Cardiology Progress Note ---
Assessment and Plan (1) Cardiomyopathy Status: Acute Assessment and plan: This is mild to moderate with ejection of 40% previously. We will monitor him and hopefully if he cannot take oral medications. She will need to reverse some of this to Current Visit: Yes (2) Bilateral lower extremity edema Status: Acute Assessment and plan: Duration is really unknown but is still present. We'll monitor this and is lysed as some degree. And his volume status. Current Visit: Yes Cardiology - PN: Subj Interval history: The patient is is immediate post op having had bilateral low abdominal drainage she's placed for infected peritonitis.. Is now receiving antibiotics via these tubes and he will be drained later. From a cardiac standpoint chart indicates she's had a history of mild cardiomyopathy ejection fraction 40% found one week ago by Dr. Escalante. He has a history of hypertension. The patient postoperatively is having sinus tachycardia with his blood pressure high side are normal. We'll titrate his medications to manage his. Exam (Progress Note) - Constitutional Vitals: Period Temp Pulse Resp BP Sys/Dorado Pulse Ox Last 24 Hr 97.1 F-98.2 F 50-112 10-20 83-135/44-85 96-100 Exam: Gen. appearance: Patient is intubated and sedated on propofol. His immediate postoperative. HEENT: He is orally intubated. Atraumatic. Neck: Trachea midline. Lungs: Anteriorly bilaterally lung nielson are clear normal course. Cardiovascular: Tachycardic without gross murmur. Radial pulses are 2+. Abdomen: He is postop. Extremities: He has some 1-2+ edema of his ankles. Extremities are warm though. Neurologic: Patient is on propofol at this time. Psychiatric: Patient on propofol. Skin: Warm and dry. Result/EKG - Labs CBC & BMP: 08/26/16 05:15 08/26/16 05:15 Lab Results: I have reviewed the past 24 hour labs Labs: Laboratory Results - last 24 hr 08/26/16 08/26/16 08/26/16 05:15 05:15 05:15 WBC 14.5 H RBC 3.80 Hgb 11.0 L Hct 33.9 L MCV 89.2 MCH 29 MCHC 32.4 RDW 15.7 Plt Count 377 MPV 10.7 Neut % (Auto) 54.2 Lymph % (Auto) 21.6 [place] % (Auto) 21.4 H Eos % (Auto) 0.1 Baso % (Auto) 0.3 Neut # (Auto) 7.9 H Lymph # (Auto) 3.1 [place] # (Auto) 3.1 H Eos # (Auto) 0.0 Baso # (Auto) 0.1 Total Counted 100 Immature Gran % 2.4 Nucleated RBC % 0.0 Immature Gran # 0.35 Segmented Neutrophils 41 L Band Neutrophils 26 H Lymphocytes 24 Monocytes 8 Myelocytes 1 Nucleated RBCs # 0.00 Platelet Estimate Adequate Polychromasia Slight Hypochromasia 2+ Microcytosis 2+ Morphology Comment INR 1.9 PT Patient/Control Mix 21.2 D Circ Anticoag PTT 36.9 ABG pH ABG pCO2 ABG pO2 ABG HCO3 ABG Total CO2 ABG O2 Saturation ABG Base Excess Sodium 134 L Potassium 3.5 Chloride 95 L Carbon Dioxide 24 Anion Gap 18.5 H BUN 68 H Creatinine 1.30 GFR Calculation 73 BUN/Creatinine Ratio 52.00 H Glucose 88 Calculated Osmolality 286.2 Calcium 8.4 L Total Bilirubin 3.30 H AST 38 H ALT 21 Alkaline Phosphatase 86 Total Protein 6.1 L Albumin 2.2 L Globulin 3.9 H Albumin/Globulin Ratio 0.5 L Blood Type Antibody Screen 08/26/16 08/26/16 05:15 10:06 WBC RBC Hgb Hct MCV MCH MCHC RDW Plt Count MPV Neut % (Auto) Lymph % (Auto) [place] % (Auto) Eos % (Auto) Baso % (Auto) Neut # (Auto) Lymph # (Auto) [place] # (Auto) Eos # (Auto) Baso # (Auto) Total Counted Immature Gran % Nucleated RBC % Immature Gran # Segmented Neutrophils Band Neutrophils Lymphocytes Monocytes Myelocytes Nucleated RBCs # Platelet Estimate Polychromasia Hypochromasia Microcytosis Morphology Comment INR PT Patient/Control Mix Circ Anticoag PTT ABG pH 7.311 L ABG pCO2 44.0 ABG pO2 180.0 H ABG HCO3 21.1 ABG Total CO2 20.1 L ABG O2 Saturation 99.2 ABG Base Excess -4.0 L Sodium Potassium Chloride Carbon Dioxide Anion Gap BUN Creatinine GFR Calculation BUN/Creatinine Ratio Glucose Calculated Osmolality Calcium Total Bilirubin AST ALT Alkaline Phosphatase Total Protein Albumin Globulin Albumin/Globulin Ratio Blood Type O POSITIVE Antibody Screen Negative - Impressions Impressions: Telemetry initially with a heart rate of 120 in sinus. This orthodromic that the propofol was increased to the 80s. He remains sinus with some PVCs. Quality Measures - VTE Contraindication to Pharmacological VTE Prophylaxis: High Risk of Bleeding - Stroke Symptom Onset Unknown: No
[2016-08-26 12:40] LABS: ABG Base Excess -3.3 MMOL/L (-2.5-2.5); ABG HCO3 21.7 MMOL/L (20-26); ABG Oxygen Saturation 99.9 % (95-100); ABG PCO2 34.7 MM HG (35-48); ABG PH 7.391 (7.35-7.45)
--- NOTE | 2016-08-26 12:40 | Anesthesia Post-Op ---
Anesthesia Post OP - Post Ansesthetic Evaluation Patient seen in post op: Yes Resp: within normal limits CV: within normal limits Mental: within normal limits Temp: within normal limits [id number]: within normal limits Nausea and Vomiting: within normal limits Pain: within normal limits
[2016-08-26] MEDS: HYDROmorphone 2 MG/1 ML VIAL IV PRN (13:16)
[2016-08-26 13:19] LABS: Hematocrit 31.4 VOL% (42.0-52.0); Hemoglobin 9.9 GM/DL (14.0-18.0)
[2016-08-26] MEDS: ENOXAPARIN 30 MG/0.3 ML SYRINGE SUBCUT SCH (13:45)
--- NOTE | 2016-08-26 14:25 | Gastrointestinal Progress Note ---
Assessment and Plan (1) Ascites Status: Acute Assessment and plan: 08/26-status post exploratory surgery with drain placement. Findings noted below. Cultures pending. Pressure support and sedated at present on vent. Plan an addendum to followed by Dr. Brizuela 08/25-WBC 19.3, afebrile. For exploratory lap today with Dr dixon. Plan and addendum to follow by Dr brizuela. 08/24-Afebrile, WBC elevated at 17 today. Wt down slightly. Continue to monitor at present time and consider repeat paracentesis on tomorrow. Plan and addendum to follow by Dr Brizuela. 08/23-3 month history of increased edema and abdominal distention. Post paracentesis with 2 L of malodorous fluid with debris noted with gram-positive cocci and few gram-positive rods. Abdominal ultrasound showed normal liver size , no acute gallbladder findings. CT of abdomen shows peritoneal cavity thickening with questionable omental caking. Bilirubin 2.4, alkaline phosphatase 133, albumin 2.1. INR 1.5. IV Flagyl and Ancef have been started. Check hepatitis panel. Plan an addendum to followed by Dr. Brizuela. Current Visit: Yes Qualifiers: Ascites type: malignant Qualified Code(s): R18.0 - Malignant ascites Gastroenterology - PN: Subj Interval history: CC: Abdominal pain, ascites Patient is seen in ICU, sedated on the ventilator at present time. He is also noted to be on some pressor support. Patient is status post laparoscopic exploration of his abdomen this morning with drain placement. Findings noted of large amount of foul-smelling peritoneal cloudy fluid with significant phlegmon material of the peritoneal cavity. Cultures were obtained and are pending. Abdomen is soft, dressings intact. Good urine output noted. ROS: No acute distress noted at present time. Exam (Progress Note) - Constitutional Vitals: Period Temp Pulse Resp BP Sys/Dorado Pulse Ox Last 24 Hr 97.1 F-98.2 F 50-112 10-20 83-135/44-85 96-100 General appearance: normal weight, no acute distress - Head Head exam: Present: normal inspection, normocephalic - Eye Eye exam: Present: other (Lids and conjunctive are unremarkable). Absent: scleral icterus - ENT ENT exam: Present: normal exam, normal oropharynx - Neck Neck exam: Present: normal inspection - Respiratory Respiratory exam: Present: clear to auscultation bilaterally. Absent: rales, rhonchi, wheezes - Cardiovascular Cardiovascular exam: Present: regular rate and rhythm. Absent: diastolic murmur , JVD, systolic murmur - GI/Abdominal GI/Abdominal exam: Present: soft. Absent: ascites, distended, mass, organomegaly - Extremities Exam Extremities exam: Present: normal inspection - Back Exam Back exam: Present: normal inspection - Neurological Exam Neurological exam: Present: altered, other (Sedated) - Psychiatric Psychiatric exam: Present: other (Sedated) - Skin Skin exam: Present: normal color, dry Results - Labs CBC & BMP: 08/26/16 13:05 08/26/16 05:15 Lab Results: I have reviewed the past 24 hour labs
--- NOTE | 2016-08-26 15:39 | Pulmonology Consult Note ---
<MichelleKeven - Last Filed: 08/26/16 15:59> History of Present Illness Chief complaint: Ventilator management History of present illness: Keven Martinez, ANP-BC, GNP-BC, acting as scribe for Dr. Kurt Oglesby Mr. Dale is a 71-year-old -Maltese male with history of hypertension who presented to the ER the day of admission with complaints of increased abdominal girth and lower extremity swelling and shortness of breath. Patient states he was in his normal state of health until May when he started to get some lower extremity edema. He was referred to Dr. Escalante's office and has seen him twice with his last visit being last week. Dr. Escalante was treating him for CHF and had started him on 40 mg of Lasix 3 times a day with no relief of his symptoms. On his visit last week he was started on Aldactone and metolazone as well. Patient was also referred to see Dr. Brizuela for gastroenterology on 08/26/2016. Patient states that he continued to get abdominal and lower extremity swelling. He is now short of breath and very weak in his lower extremities and could not walk. He was also complaining of pain around his bellybutton. Patient denied any further medical history other than hypertension and he had no surgical history. He denied headache, blurred vision, difficulty swallowing, chest pain, constipation, diarrhea, difficulty urinating, or decreased sensation. Echo in Dr. Escalante's office showed a 40% EF as well as the one done in the ED the day of admission. Patient was afebrile with tachycardia. He did have some runs of V. fib on the monitor during his initial examination that were asymptomatic. His white count was mildly elevated at 14.8, H&H 13.1/39.9, platelets were normal, patient's coags were normal, electrolytes and creatinine were normal, patient's bilirubin was elevated at 2.4 with normal AST and ALT. His alkaline phosphatase was abnormal at 133 and his BNP was 887, abdominal ultrasound showed no evidence of abnormality. Chest x-ray was normal. EKG showed sinus tachycardia with occasional ectopic premature complexes and possible inferior SC, probably old. Dr. Morrison from interventional radiology performed an ultrasound-guided paracentesis the morning of 08/23/16 where 2075 mL of malodorous/serous ascitic fluid with debris was removed. Culture has grown E. coli, Enterobacter aerogenes , and Enterococcus faecalis. He had an exploratory lap earlier today. We have been asked to see him in pulmonary consultation for ventilator management. He is sedated and on the ventilator, therefore, all history and ROS is obtained from the chart. There was no reported shortness of breath or STYLES. No cardiac angina or palpitations. No dysphagia or reflux. No bleeding form any site. No change in bowel or bladder habits. No TIA symptoms or syncope. All other systems were reviewed and were negative. Allergies: None Past medical history: CHF and HTN Surgical history: Noncontributory at this time Family history: Positive for HTN Social history: He is retired from [employer] in [place] and has recently moved back to [place]. He denied alcohol or tobacco use. Microbiology: Peritoneal fluid was class I. CXR. Done 08/26/16. My interpretation. There is atelectasis in the bases, but otherwise stable. Home Medications Medication Instructions Recorded Confirmed Type Captopril 6.25 mg PO BID 08/23/16 08/23/16 History Carvedilol 6.25 mg PO BID 08/23/16 08/23/16 History Spironolactone [Aldactone] 12.5 mg PO DAILY 08/23/16 08/23/16 History metOLazone [Metolazone] 5 mg PO DAILY 08/23/16 08/23/16 History Allergies Allergy/AdvReac Type Severity Reaction Status Date / Time No Known Allergies Allergy Unverified 08/23/16 06:53 Exam (Pulmonay) H&P - Constitutional Vitals: Period Temp Pulse Resp BP Sys/Dorado Pulse Ox Last 24 Hr 97.1 F-98.2 F 50-120 10-23 65-145/39-99 96-100 Medical,Surgical,& Family Hx - Medical History Cardio: History of: CHF, Hypertension Neurology: No history of: Seizures Musculoskeletal: No history of: Amputation - Surgical History Cardiac Surgeries: Patient Denies: Cardiac Catheterization Thoracic Surgeries: Patient denies;: Organ Transplant, Lobectomy Neurologic Surgeries: Patient denies: Neurologic Surgery Abdominal Surgeries: Surgical HX of: Appendectomy Patient denies: Abdominal Surgery, Colonoscopy Reproductive Surgeries: Patient denies;: Genitourinary Surgery - Family History Family History: Reports;: Family Diabetes (Sister), Family Hypertension ( Siblings) - Social History Smoking Status: Never smoker Frequency of Alcohol Use: None Type of Drug Use: None Results - Labs CBC & BMP: 08/26/16 13:05 08/26/16 05:15 Quality Measures - VTE Contraindication to Pharmacological VTE Prophylaxis: High Risk of Bleeding - Stroke Symptom Onset Unknown: No <Kurt Oglesby - Last Filed: 08/26/16 20:37> History of Present Illness History of present illness: The patient is on pressor agents his blood pressure is stable ABGs on mechanical ventilation FiO2 of 60% shows a pH 7.39, PCO2 35, PO2 273 and a bicarb of 21.7. White count is 14,500 with 54 segs 21 lymphs and 21 monos. Microbiology. Peritoneal fluid has grown E. coli, Enterococcus faecalis and Enterobacter aerogenes. Physical exam. Vital signs see below Neurologic. Patient is sedated and neurological is impossible. Face. Symmetrical. Lips and tongue appear to be normal. Neck. No masses no meningismus. Thyroid was not palpated. Lymphatics. No submandibular cervical supraclavicular or epitrochlear adenopathy Chest. Mild large airway congestion Heart. No gallop Abdomen postsurgical Extremities. No definite evidence of deep venous thrombophlebitis. The remainder the physical exam is noncontributory. Impression. 1. Acute peritonitis. Multiple organisms. Post abdominal surgery. 2. Hypotension. 3. Postop ventilator dependent. 4. High blood pressure 5. Heart disease. July 21 ejection fraction of 40% with mild mitral regurgitation, mild pulmonary regurgitation , mild to moderate tricuspid regurgitation. 6. Past history of congestive heart failure. 7. See past history. See surgical, cardiac, and GI consultation. See hospitalist note. Plan. 1. Mechanical ventilation weaning protocol. 2. Mechanical ventilation physical therapy protocol. 3. Deep venous thrombophlebitis prevention protocol. 4. Proton pump inhibitor protocol 5. Doppler venograms of the lower extremities to rule out deep venous thrombophlebitis. 6. See orders Exam (Pulmonay) H&P - Constitutional Vitals: Period Temp Pulse Resp BP Sys/Dorado Pulse Ox Last 24 Hr 97 F-98.2 F 66-120 10-23 65-145/39-99 97-100 Results - Labs CBC & BMP: 08/26/16 13:05 08/26/16 05:15
--- NOTE | 2016-08-26 16:16 | Hospitalist Progress Note ---
Assessment and Plan - Time spent with patient Time spent with patient: Less than 30 minutes (1) Bilateral lower extremity edema Status: Acute Assessment and plan: 71-year-old -Nepalese male admitted by Dr. Cason from the ED with shortness of breath due to ascites and bilateral lower extremity edema. Patient has been followed by Dr. Escalante and is on multiple diuretics. Patient had a initial appointment for evaluation by Dr. Brizuela on 08/26/2016 scheduled. Will admit the patient to monitored bed, consult Dr. Escalante and Dr. Brizuela for evaluation. Will restart his home medicines. Will await results of CT scan and cultured paracentesis. We will go ahead and start the patient on some antibiotics for erythema and induration surrounding umbilicus. This is all been discussed with Dr. Cason. Further recommendations to follow. 08/24/16 CT the abdomen and pelvis showing bacterial peritonitis/peritoneal abscess. Patient's CEA is normal, white count up to 17, and his total bilirubin has doubled overnight to 4.8.. Dr. Painter from surgery has ordered a barium enema to evaluate for any masses. They also will check with IR to see if it is feasible to place a percutaneous drainage catheter. Antibiotics have been switched to Zosyn and Flagyl. Patient still may require surgery. Dr. Brizuela has also seen the patient and he feels since the serum ascites albumin gradient is low, it is consistent with inflammatory or malignant etiology. He recommended continuing the IV antibiotics and awaiting culture data and to repeat the paracentesis on Tuesday. If the ascites fluid is not improving it would suggest secondary bacterial peritonitis with suspected perforation and laparoscopy would be recommended. Dr. Serrano has also seen the patient for Dr. Escalante. He has consulted sleep medicine for suspected NGHIA, added spironolactone and IV Lasix. Appreciate consultants help with this patient. Patient has been made n.p.o. for further testing this morning. Further recommendations to follow per Dr. Cason. 08/26/2016 patient now status post laparoscopic exploration and washout of the abdomen. 2 sump drains have been placed. Dr. Painter is flushing the abdomen with antibiotics. Patient is on Cipro and Flagyl along with Ancef postoperatively. His blood pressures are stable on melba-that is slowly being weaned by nursing. Patient is afebrile. Patient's white blood cell count was down to 14.5 this morning and his H&H is stable postoperatively. His total bilirubin is down to 3.3 as well. His incision looks good and there is no signs of bleeding. His lower extremities are approximately half the size they were upon admission. Nothing further needs to be added today. We will continue to monitor. Further recommendations to follow per Dr. Cason Current Visit: Yes (2) Leukocytosis Status: Acute Current Visit: Yes (3) Hyperbilirubinemia Status: Acute Current Visit: Yes (4) CHF (congestive heart failure) Status: Acute Current Visit: Yes (5) Dyspnea Status: Acute Current Visit: Yes (6) Ascites Status: Acute Current Visit: Yes Qualifiers: Qualified Code(s): R18.0 - Malignant ascites Hospitalist: Subjective Interval history: Patient is now status post laparoscopic exploration with drainage of abdomen and placement of drains by Dr. Painter this morning. Patient is sedated on the vent and on AP infusion. Findings noted a large amount of foul-smelling peritoneal cloudy fluid with significant phlegmon material in the peritoneal cavity. Cultures were obtained and are pending. Patient has 2 large sump drains in the abdomen that is being flushed with antibiotics. Otherwise the patient is stable. Exam - Constitutional Vitals: Period Temp Pulse Resp BP Sys/Dorado Pulse Ox Last 24 Hr 97 F-98.2 F 50-120 10-23 65-145/39-99 96-100 Exam: 71-year-old -Nepalese male, sedated on the vent Chest is clear CV regular rate and rhythm Abdomen is soft, incision looks good, 2 sump drains intact with no signs of bleeding Extremities with 2+ pitting edema Results - Labs CBC & BMP: 08/26/16 13:05 08/26/16 05:15 Lab Results: I have reviewed the past 24 hour labs Quality Measures - VTE Contraindication to Pharmacological VTE Prophylaxis: High Risk of Bleeding - Stroke Symptom Onset Unknown: No
[2016-08-26] MEDS: ceFAZolin 2,000 MG in PREMIX 1 EACH IV SCH (16:36)
--- NOTE | 2016-08-26 21:15 | Ultrasound Report ---
Exam: Bilateral lower extremity venous Doppler ultrasound Comparison: None Clinical history: Sepsis, dehydration Technique: Duplex scan of the lower extremity veins using B-mode/grayscale scaled imaging and Doppler spectral analysis and color flow. Findings: Major venous structures of the lower extremities demonstrate a normal course and caliber. Normal color-flow study and spectral analysis. There is normal compression and augmentation of bilateral common femoral, superficial femoral and popliteal veins. The proximal bilateral greater saphenous veins appear to be patent. 28 x 18 x 9 mm left popliteal cyst. Impression: No evidence to suggest deep venous thrombosis within either lower extremity. 28 x 18 x 9 mm left popliteal cyst Ultrasound images were captured and stored. PROCEDURE INTERPRETED AT [facility] DEPARTMENT OF RADIOLOGY Final Report Signed by: Dr. Abida Vieyra
[2016-08-27] MEDS: ceFAZolin 2,000 MG in PREMIX 1 EACH IV SCH ×3 (00:30→17:27)
[2016-08-27] MEDS: HYDROmorphone 2 MG/1 ML VIAL IV PRN (02:19)
[2016-08-27] MEDS: LACTATED RINGERS 1,000 ML IV SCH ×3 (02:23→22:00)
[2016-08-27] MEDS: PROPOFOL 1,000 MG/100 ML BOTTLE IV SCH ×3 (02:24→10:00)
[2016-08-27] MEDS: metroNIDAZOLE INJ 500 MG in PREMIX 1 EACH IV SCH ×4 (03:59→21:00)
[2016-08-27 04:31] LABS: ABG HCO3 25.4 MMOL/L (20-26); ABG PCO2 28.4 MM HG (35-48); ABG PH 7.521 (7.35-7.45); ABG TCO2 21.1 MMOL/L (23-27)
[2016-08-27 04:47] LABS: Basophils % 0.2 % (0.0-0.8); Hematocrit 28.9 VOL% (42.0-52.0); Hemoglobin 9.5 GM/DL (14.0-18.0); Immature Granulocytes % 3.6 %; Immature Granulocytes Absolute 0.85 #; Lymphocytes # 2.7 10*3/uL (1.4-4.0); Lymphocytes % 11.3 % (21.2-54.2); Mean Corpuscular HGB Conc 32.9 GM/DL (32-36); Mean Corpuscular Hemoglobin 30 PG (27-34); Mean Corpuscular Volume 90.3 FL (87-102); Mean Platelet Volume 10.5 FL (9.6-12.0); Monocytes # 3.5 10*3/uL (0.11-0.8); Neutrophils # 16.4 10*3/uL (1.4-7.4); Neutrophils % 69.9 % (38.7-73.9); Platelet Count 409 T/CUMM (130-400); Red Cell Distribution Width 15.9 % (9.3-17.3); White Blood Count 23.5 T/CUMM (4-12)
[2016-08-27 05:17] LABS: Albumin 1.7 G/DL (3.4-5.0); Calcium 7.4 MG/DL (8.5-10.1); Osmolality,Calculated 290.8 MOS/KG (273-304); Potassium 3.1 MMOL/L (3.5-5.1); Total Protein 4.8 G/DL (6.4-8.3)
[2016-08-27 05:36] LABS: Band Neutrophils 4 % (0-10); Lymphocytes 13 % (20-55); Segmented Neutrophils 74 % (50-85); Total Cells Counted 100
[2016-08-27 05:37] LABS: Burr Cells Slight; Hypochromasia 1+; Microcytosis 1+; Platelet Estimate Adequate; Polychromasia Slight
[2016-08-27] MEDS: CIPROFLOXACIN INJ 400 MG in PREMIX 1 EACH IV SCH ×3 (06:00→23:00)
--- NOTE | 2016-08-27 08:00 | XRay Report ---
XR chest 1V portable Indication: Abdominal abscess Comparison: 26 August 2016 Findings: The heart and mediastinum are stable in size and configuration. NG tube is been added that is coiled in the esophagus. Remaining lines and tubes are unchanged in position. The pulmonary vascularity is normal in caliber. No lung infiltrates, effusions, pneumothorax or other abnormality is demonstrated. Impression: NG tube added but is coiled within the esophagus. No other significant changes. PROCEDURE INTERPRETED AT [facility] DEPARTMENT OF RADIOLOGY Final Report Signed by: Dr. Saúl Rubio
[2016-08-27] MEDS: PANTOPRAZOLE 40 MG TABLET PO SCH (08:04)
[2016-08-27] MEDS: METOPROLOL SUCCINATE XL 50 MG TABLET PO SCH ×2 (08:04→21:05)
[2016-08-27] MEDS: SPIRONOLACTONE 25 MG TABLET PO SCH (08:04)
[2016-08-27] MEDS: FUROSEMIDE 40 MG/4 ML VIAL IV SCH (08:05)
[2016-08-27] MEDS: PHENYLEPHRINE DRIP 40 MG/250 ML PREMIX IV SCH ×2 (08:25→21:00)
--- NOTE | 2016-08-27 09:10 | Gastrointestinal Progress Note ---
Assessment and Plan (1) Ascites Status: Acute Assessment and plan: 08/27-Post op day 2 exp surgery. Peritoneal fluid noted with final growth of E. coli, Enterococcus faecalis, enterobacter aerogenes. Abd abscess gram stain results with few gram positive cocci, body fluid culture pending. Plan and addendum to follow by Dr Brizuela. 08/26-status post exploratory surgery with drain placement. Findings noted below. Cultures pending. Pressure support and sedated at present on vent. Plan an addendum to followed by Dr. Brizuela 08/25-WBC 19.3, afebrile. For exploratory lap today with Dr dixon. Plan and addendum to follow by Dr brizuela. 08/24-Afebrile, WBC elevated at 17 today. Wt down slightly. Continue to monitor at present time and consider repeat paracentesis on tomorrow. Plan and addendum to follow by Dr Brizuela. 08/23-3 month history of increased edema and abdominal distention. Post paracentesis with 2 L of malodorous fluid with debris noted with gram-positive cocci and few gram-positive rods. Abdominal ultrasound showed normal liver size , no acute gallbladder findings. CT of abdomen shows peritoneal cavity thickening with questionable omental caking. Bilirubin 2.4, alkaline phosphatase 133, albumin 2.1. INR 1.5. IV Flagyl and Ancef have been started. Check hepatitis panel. Plan an addendum to followed by Dr. Brizuela. Current Visit: Yes Qualifiers: Ascites type: malignant Qualified Code(s): R18.0 - Malignant ascites Gastroenterology - PN: Subj Interval history: CC: Ascites Pt is seen, sedated, on the vent. He continues on pressor support at this time. He does move around with his sedation however does not open eyes or follow commands. He is noted to have adequate UOP at present time. Abdomen is soft, dressing intact. ROS: No acute distress at present time Exam (Progress Note) - Constitutional Vitals: Period Temp Pulse Resp BP Sys/Dorado Pulse Ox Last 24 Hr 97 F-97.7 F 63-120 10-23 65-145/39-99 97-100 - Other Additional findings: General appearance: normal weight, no acute distress - Head Head exam: Present: normal inspection, normocephalic - Eye Eye exam: Present: other (Lids and conjunctive are unremarkable). Absent: scleral icterus - ENT ENT exam: Present: normal exam, normal oropharynx - Neck Neck exam: Present: normal inspection - Respiratory Respiratory exam: Present: clear to auscultation bilaterally. Absent: rales, rhonchi, wheezes - Cardiovascular Cardiovascular exam: Present: regular rate and rhythm. Absent: diastolic murmur , JVD, systolic murmur - GI/Abdominal GI/Abdominal exam: Present: soft. Absent: ascites, distended, mass, organomegaly - Extremities Exam Extremities exam: Present: normal inspection - Back Exam Back exam: Present: normal inspection - Neurological Exam Neurological exam: Present: altered, other (Sedated) - Psychiatric Psychiatric exam: Present: other (Sedated) - Skin Skin exam: Present: normal color, dry Results - Labs CBC & BMP: 08/27/16 04:06 08/27/16 04:06 Lab Results: I have reviewed the past 24 hour labs
--- NOTE | 2016-08-27 10:09 | Hospitalist Progress Note ---
Assessment and Plan - Time spent with patient Time spent with patient: Less than 30 minutes (1) Bilateral lower extremity edema Status: Acute Assessment and plan: 71-year-old -[place] male admitted by Dr. Cason from the ED with shortness of breath due to ascites and bilateral lower extremity edema. Patient has been followed by Dr. Escalante and is on multiple diuretics. Patient had a initial appointment for evaluation by Dr. Brizuela on 08/26/2016 scheduled. Will admit the patient to monitored bed, consult Dr. Escalante and Dr. Brizuela for evaluation. Will restart his home medicines. Will await results of CT scan and cultured paracentesis. We will go ahead and start the patient on some antibiotics for erythema and induration surrounding umbilicus. This is all been discussed with Dr. Cason. Further recommendations to follow. 08/24/16 CT the abdomen and pelvis showing bacterial peritonitis/peritoneal abscess. Patient's CEA is normal, white count up to 17, and his total bilirubin has doubled overnight to 4.8.. Dr. Painter from surgery has ordered a barium enema to evaluate for any masses. They also will check with IR to see if it is feasible to place a percutaneous drainage catheter. Antibiotics have been switched to Zosyn and Flagyl. Patient still may require surgery. Dr. Brizuela has also seen the patient and he feels since the serum ascites albumin gradient is low, it is consistent with inflammatory or malignant etiology. He recommended continuing the IV antibiotics and awaiting culture data and to repeat the paracentesis on Tuesday. If the ascites fluid is not improving it would suggest secondary bacterial peritonitis with suspected perforation and laparoscopy would be recommended. Dr. Serrano has also seen the patient for Dr. Escalante. He has consulted sleep medicine for suspected NGHIA, added spironolactone and IV Lasix. Appreciate consultants help with this patient. Patient has been made n.p.o. for further testing this morning. Further recommendations to follow per Dr. Cason. 08/26/2016 patient now status post laparoscopic exploration and washout of the abdomen. 2 sump drains have been placed. Dr. Painter is flushing the abdomen with antibiotics. Patient is on Cipro and Flagyl along with Ancef postoperatively. His blood pressures are stable on melba-that is slowly being weaned by nursing. Patient is afebrile. Patient's white blood cell count was down to 14.5 this morning and his H&H is stable postoperatively. His total bilirubin is down to 3.3 as well. His incision looks good and there is no signs of bleeding. His lower extremities are approximately half the size they were upon admission. Nothing further needs to be added today. We will continue to monitor. Further recommendations to follow per Dr. Cason 08/27/2016 patient is postop day 1 laparoscopic exploration and washout of the abdomen by Dr. Painter. 2 sump drains have been placed and antibiotics are being flushed through the abdomen. He does have some drainage on his dressings and this appears to be the antibiotic fluid. His total bilirubin is down to 2 and the remainder of his LFTs have normalized. His albumin is low and he could benefit from some infused but will leave this to Dr. Painter. Patient's creatinine is also normalized and he has good urine output that is clear. Patient's white count is up to 23.5 but this is expected postoperatively for his particular problem. He is on Cipro and Flagyl and postoperative Ancef. His H&H is stable. Patient's potassium is low today so this will be replaced. Chest x-ray did show that the NG tube was coiled in the distal esophagus. Have discussed this with nursing and she will adjust and/or replace until it is seated in the stomach. This is all been discussed with Dr. Cason and further recommendations to follow. Current Visit: Yes (2) Leukocytosis Status: Acute Current Visit: Yes (3) Hyperbilirubinemia Status: Acute Current Visit: Yes (4) CHF (congestive heart failure) Status: Acute Current Visit: Yes (5) Dyspnea Status: Acute Current Visit: Yes (6) Ascites Status: Acute Current Visit: Yes Qualifiers: Ascites type: malignant Qualified Code(s): R18.0 - Malignant ascites Hospitalist: Subjective Interval history: Patient is still sedated on the vent. His sedation has been turned down and his pressors are being weaned. Dr. Oglesby is following patient for ventilator management so he will determine extubation time. Patient is moving some on the vent but will not open his eyes. Exam - Constitutional Vitals: Period Temp Pulse Resp BP Sys/Dorado Pulse Ox Last 24 Hr 96.5 F-97.6 F 59-120 10-23 65-145/39-99 97-100 Exam: 71-year-old -Cam[place] male, sedated on the vent Chest clear CV regular rate and rhythm Abdomen protuberant, soft, incisions look good sump drains in place Extremities very minimal edema in the dorsum of the foot today Results - Labs CBC & BMP: 08/27/16 04:06 08/27/16 04:06 Lab Results: I have reviewed the past 24 hour labs - Diagnostic Findings Procedure: Chest x-ray: report reviewed by me (NG tube coiled in the esophagus) Quality Measures - VTE Contraindication to Pharmacological VTE Prophylaxis: High Risk of Bleeding - Stroke Symptom Onset Unknown: No
--- NOTE | 2016-08-27 10:39 | General Surgery Progress Note ---
Assessment and Plan - Time spent with patient Time spent with patient: Less than 30 minutes (1) Abdominal mass Status: Acute Assessment and plan: 08/27/16 Stable post op lap abdominal exploration with washout. Likely this was a large smoldering diverticular abscess. We've now drained the pelvis and LLQ, with good results from systemic and intra-abdominal antibiotic irrigations. We' ll hope to see him extubated soon and when bowel sounds resume, can begin PO intake. If the infection continues to respond and inflammation resolve, he could potentially be addressed surgically with elective left/sigmoid colectomy in the future, avoiding colostomy. 08/24/16 Large peritoneal omental caking with peritonitis. No gross colonic abnormalities or perforations seen, but there is still no definite etiology for the clinical & CT abnormalities. We will plan BE to get a look at the colon. The patient isn't favorable to surgery at this point, so I'll check with IR to see if they think it's feasible to place a percutaneous drainage catheter. We will continue IV antibiotics and watch the abdominal wall closely. He certainly appears to feel better, however the overall picture is unclear, and he still may require surgery. Current Visit: Yes Qualifiers: Abdominal location: periumbilical Qualified Code(s): R19.05 - Periumbilic swelling, mass or lump Subjective Patient reports: Present: other (Sedated on vent) Exam - Constitutional Vitals: Period Temp Pulse Resp BP Sys/Dorado Pulse Ox Last 24 Hr 96.5 F-97.6 F 59-120 10-23 65-145/39-99 97-100 General appearance: other (Pt sedated on vent. Peripheral edema is less. ) - ENT Mouth exam: Present: dry mucosa - Respiratory Respiratory exam: Present: rhonchi - Cardiovascular Cardiovascular exam: Present: RRR - GI/Abdominal GI/Abdominal exam: Present: other (Abdomen is softer; there is some strike through on either side of the sump drains but this is clear/serous appearing fluid. There is no purulent drainage in the suction drains. Abdomen with minimal occasional large bowel gas present. Periumbilical redness is decreasing ; a single pustule is still present. Induration resolving slowly, now 1-2cm. Liver now palpable. ) - Extremities Exam Extremities exam: Present: other (Peripheral edema & pitting is much less; no weeping observed today.) Results - Labs CBC & BMP: 08/27/16 04:06 08/27/16 04:06 Lab Results: I have reviewed the past 24 hour labs (WBC elevated, likely due to intra-abdominal manipulation. H&H stable post op. Creatinine now normal, and LFTs trending down. Gram stain of abdominal fluid is negative.) Quality Measures - VTE Contraindication to Pharmacological VTE Prophylaxis: High Risk of Bleeding - Stroke Symptom Onset Unknown: No
--- NOTE | 2016-08-27 11:13 | Cardiology Progress Note ---
Assessment and Plan (1) Cardiomyopathy Status: Acute Assessment and plan: His ejection fraction this admission is 50-55%. He is clinically stable from this regard. Current Visit: Yes (2) Bilateral lower extremity edema Status: Acute Assessment and plan: Duration is really unknown but is still present. This is probably multifactorial. His hypoalbuminemia certainly contributes. Current Visit: Yes (3) Hypoalbuminemia Status: Acute Assessment and plan: This will contribute to edema hemodynamic issues. His processing there is illness. He did have some proteinuria. Current Visit: Yes Cardiology - PN: Subj Interval history: Patient remains sedated and on ventilator. Cardiac-veras been stable and stays in sinus rhythm with adequate blood pressure on pressor agents. From his cardiomyopathy is fairly stable. His ejection fraction on echocardiogram this admission was 50-55%. He did have some mild to moderate mitral regurgitation with sclerosing aortic valve and mild to moderate tricuspid regurgitation with mild to moderately elevated right-sided pressures. He has not had any dysrhythmias or other cardiac issues at this time. His lab is noted and he is on potassium replacement protocol Exam (Progress Note) - Constitutional Vitals: Period Temp Pulse Resp BP Sys/Dorado Pulse Ox Last 24 Hr 96.5 F-97.6 F 59-120 11-21 65-139/39-74 97-100 Exam: Gen. appearance: Patient is intubated and sedated on propofol. HEENT: He is orally intubated. NG tube in place. Atraumatic. Neck: Trachea midline. Lungs: Anteriorly bilaterally lung nielson are clear normal course breath sounds. Cardiovascular: Regular rate and rhythm with a 1 to 2/6 systolic murmur. Radial pulses are 2+. Abdomen: He is postop. Extremities: He has some 1-2+ edema of his ankles. Extremities are warm though. Neurologic: Patient is on propofol at this time. Psychiatric: Patient on propofol. Skin: Warm and dry. Result/EKG - Labs CBC & BMP: 08/27/16 04:06 08/27/16 04:06 Lab Results: I have reviewed the past 24 hour labs (potassium is low but is on protocol.) Labs: Laboratory Results - last 24 hr 08/26/16 08/26/16 08/27/16 11:30 13:05 04:06 WBC 23.5 H D RBC 3.20 L Hgb 9.9 L 9.5 L Hct 31.4 L 28.9 L MCV 90.3 MCH 30 MCHC 32.9 RDW 15.9 Plt Count 409 H MPV 10.5 Neut % (Auto) 69.9 Lymph % (Auto) 11.3 L [place] % (Auto) 15.0 H Eos % (Auto) 0.0 Baso % (Auto) 0.2 Neut # (Auto) 16.4 H Lymph # (Auto) 2.7 [place] # (Auto) 3.5 H Eos # (Auto) 0.0 Baso # (Auto) 0.0 Total Counted 100 Immature Gran % 3.6 Nucleated RBC % 0.0 Immature Gran # 0.85 Segmented Neutrophils 74 Band Neutrophils 4 Lymphocytes 13 L Monocytes 9 Nucleated RBCs # 0.00 Platelet Estimate Adequate Polychromasia Slight Hypochromasia 1+ Microcytosis 1+ Rosa Cells Slight Morphology Comment ABG pH 7.391 ABG pCO2 34.7 L ABG pO2 273.0 H ABG HCO3 21.7 ABG Total CO2 19.0 L ABG O2 Saturation 99.9 ABG Base Excess -3.3 L Sodium Potassium Chloride Carbon Dioxide Anion Gap BUN Creatinine GFR Calculation BUN/Creatinine Ratio Glucose Calculated Osmolality Calcium Total Bilirubin AST ALT Alkaline Phosphatase Total Protein Albumin Globulin Albumin/Globulin Ratio 08/27/16 08/27/16 04:06 04:15 WBC RBC Hgb Hct MCV MCH MCHC RDW Plt Count MPV Neut % (Auto) Lymph % (Auto) [place] % (Auto) Eos % (Auto) Baso % (Auto) Neut # (Auto) Lymph # (Auto) [place] # (Auto) Eos # (Auto) Baso # (Auto) Total Counted Immature Gran % Nucleated RBC % Immature Gran # Segmented Neutrophils Band Neutrophils Lymphocytes Monocytes Nucleated RBCs # Platelet Estimate Polychromasia Hypochromasia Microcytosis [place] Cells Morphology Comment ABG pH 7.521 H ABG pCO2 28.4 L ABG pO2 283.0 H ABG HCO3 25.4 ABG Total CO2 21.1 L ABG O2 Saturation 100.0 ABG Base Excess 1.0 Sodium 137 Potassium 3.1 L Chloride 100 Carbon Dioxide 24 Anion Gap 16.1 H BUN 54 H D Creatinine 1.10 GFR Calculation 90 BUN/Creatinine Ratio 49.00 H Glucose 148 H Calculated Osmolality 290.8 Calcium 7.4 L Total Bilirubin 2.00 H AST 24 ALT 15 L Alkaline Phosphatase 66 Total Protein 4.8 L Albumin 1.7 L Globulin 3.1 Albumin/Globulin Ratio 0.5 L - Impressions Impressions: Telemetry was sinus rhythm without dysrhythmias. Quality Measures - VTE Contraindication to Pharmacological VTE Prophylaxis: High Risk of Bleeding - Stroke Symptom Onset Unknown: No
--- NOTE | 2016-08-27 11:18 | XRay Report ---
XR chest 1V portable Indication: Feeding tube placement Comparison: 27 August 2016 Findings: Exam is centered over the lower chest and upper abdomen. NG tube is present with tip overlying the left upper quadrant. Impression: NG tube appears in appropriate x-ray position. PROCEDURE INTERPRETED AT [facility] DEPARTMENT OF RADIOLOGY Final Report Signed by: Dr. Saúl Rubio
[2016-08-27 11:19] LABS: ABG Base Excess 2.6 MMOL/L (-2.5-2.5); ABG HCO3 26.8 MMOL/L (20-26); ABG PCO2 34.2 MM HG (35-48); ABG PH 7.485 (7.35-7.45); ABG TCO2 23.3 MMOL/L (23-27)
--- NOTE | 2016-08-27 11:50 | Pulmonology Progress Note ---
Pulmonary - PN: Subj Interval history: Keven Martinez, ANP-BC, GNP-BC, acting as scribe for Dr. Kurt Oglesby Mr. Dale is a 71 year old male that we saw in initial pulmonary consultation on 08/26/16. At that time, our impression were: 1. Acute peritonitis. Multiple organisms. Post abdominal surgery. 2. Hypotension. 3. Postop ventilator dependent. 4. High blood pressure 5. Heart disease. July 21 ejection fraction of 40% with mild mitral regurgitation, mild pulmonary regurgitation , mild to moderate tricuspid regurgitation. 6. Past history of congestive heart failure. 7. See past history. See surgical, cardiac, and GI consultation. See hospitalist note. 08/27/16. The patient appeared very strong this morning, so we placed him on a t- tube. ABGs were obtained and were acceptable. He was subsequently extubated. He is doing well post-extubation. Medications have been reviewed. Labs have been reviewed. Exam (Progress Note) - Constitutional Vitals: Period Temp Pulse Resp BP Sys/Dorado Pulse Ox Last 24 Hr 96.5 F-97.6 F 59-91 11-20 95-137/44-73 99-100 Exam: Chest is clear Heart no gallop Abd is post-surgical as per Dr. Painter Ext with nothing to suggest acute DVT Psych awake and alert, cooperative Neuro moves all four extremities Plan: Repeat CXR and ABGs in the morning. Results - Labs CBC & BMP: 08/27/16 04:06 08/27/16 04:06
[2016-08-27] MEDS ORDERED: ALBUTEROL/IPRATROPIUM 3 ML NEB RESP TX PRN (12:09)
[2016-08-27] MEDS: ENOXAPARIN 40 MG/0.4 ML SYRINGE SUBCUT SCH (12:40)
[2016-08-27] MEDS: SODIUM CHLORIDE 0.9% INTRAPERIT SCH (12:41)
[2016-08-27] MEDS: CEFTAZIDIME INTRAPERIT SCH (12:41)
[2016-08-27] MEDS: POTASSIUM CHLORIDE 20 MEQ/15 ML UDCUP PER TUBE PRN ×4 (12:41→18:44)
[2016-08-27] MEDS: ALBUTEROL/IPRATROPIUM 3 ML NEB RESP TX SCH ×3 (13:45→19:56)
[2016-08-27 13:56] LABS: ABG Base Excess 3.1 MMOL/L (-2.5-2.5); ABG HCO3 27.2 MMOL/L (20-26); ABG Oxygen Saturation 98.8 % (95-100); ABG PCO2 38.6 MM HG (35-48); ABG PH 7.454 (7.35-7.45); ABG TCO2 22.7 MMOL/L (23-27)
[2016-08-28] MEDS: ceFAZolin 2,000 MG in PREMIX 1 EACH IV SCH
[2016-08-28] MEDS: ALBUTEROL/IPRATROPIUM 3 ML NEB RESP TX SCH ×4 (01:06→20:07)
[2016-08-28] MEDS: metroNIDAZOLE INJ 500 MG in PREMIX 1 EACH IV SCH ×4 (02:25→21:30)
[2016-08-28 04:38] LABS: ABG HCO3 27.5 MMOL/L (20-26); ABG Oxygen Saturation 98.5 % (95-100); ABG PCO2 37.1 MM HG (35-48); ABG PH 7.488 (7.35-7.45); ABG PO2 120.9 MM HG (80-95); ABG TCO2 28.7 MMOL/L (23-27)
[2016-08-28 04:49] LABS: Basophils # 0.1 10*3/uL (0.0-0.2); Basophils % 0.3 % (0.0-0.8); Eosinophils # 0.1 10*3/uL (0.0-0.87); Eosinophils % 0.3 % (0.00-10.9); Hematocrit 30.2 VOL% (42.0-52.0); Hemoglobin 9.4 GM/DL (14.0-18.0); Immature Granulocytes % 9.1 %; Immature Granulocytes Absolute 2.28 #; Lymphocytes # 4.2 10*3/uL (1.4-4.0); Lymphocytes % 16.9 % (21.2-54.2); Mean Corpuscular HGB Conc 31.1 GM/DL (32-36); Mean Corpuscular Hemoglobin 29 PG (27-34); Mean Corpuscular Volume 93.8 FL (87-102); Mean Platelet Volume 10.1 FL (9.6-12.0); Monocytes # 3.9 10*3/uL (0.11-0.8); Monocytes % 15.3 % (1.7-12.7); NRBC # 0.04 10*3/uL; Neutrophils # 14.6 10*3/uL (1.4-7.4); Neutrophils % 58.1 % (38.7-73.9); Platelet Count 407 T/CUMM (130-400); Red Blood Count 3.22 MC/CUMM (3.8-5.5); Red Cell Distribution Width 15.9 % (9.3-17.3); White Blood Count 25.2 T/CUMM (4-12)
[2016-08-28 05:26] LABS: Albumin 1.6 G/DL (3.4-5.0); Calcium 7.2 MG/DL (8.5-10.1); Osmolality,Calculated 287.5 MOS/KG (273-304); Potassium 3.6 MMOL/L (3.5-5.1); Total Protein 4.9 G/DL (6.4-8.3)
[2016-08-28] MEDS: PHENYLEPHRINE DRIP 40 MG/250 ML PREMIX IV SCH ×2 (05:47→16:09)
[2016-08-28] MEDS: POTASSIUM CHLORIDE 20 MEQ/15 ML UDCUP PER TUBE PRN ×2 (05:47→10:16)
[2016-08-28 06:22] LABS: Anisocytosis 2+; Band Neutrophils 1 % (0-10); Hypochromasia 2+; Lymphocytes 17 % (20-55); Macrocytosis 2+; Metamyelocytes 3 %; Microcytosis Slight; Platelet Estimate Normal; Segmented Neutrophils 61 % (50-85); Total Cells Counted 100
[2016-08-28] MEDS: CIPROFLOXACIN INJ 400 MG in PREMIX 1 EACH IV SCH ×3 (06:46→23:00)
[2016-08-28] MEDS: METOPROLOL SUCCINATE XL 50 MG TABLET PO SCH ×2 (09:07→21:35)
[2016-08-28] MEDS: PANTOPRAZOLE 40 MG TABLET PO SCH (09:07)
--- NOTE | 2016-08-28 09:19 | Event Note ---
General Surgery Progress Note Chief complaint This patient is a 71-year-old man who is admitted with peritonitis treated with laparoscopic drainage of infected abdominal peritoneal fluid with no discrete source identified and drain placement on 08/26/2016 Interval history The patient has been extubated. He still has an NG tube in place which is clamped. He was able to swallow some liquids overnight per the nurses. He is still on Adam-Synephrine at 70 g and has an arterial line for monitoring. He feels okay overall just complaining of some mild abdominal tenderness but nothing that is worsening. His white blood cell count did go up to 25,000 today. Physical exam The patient is afebrile but hypotensive and on Adam-Synephrine to support his blood pressure Abdominal exam reveals tinkling bowel sounds and is appropriately tender with no evidence of erythema around the incision. The drains appear intact. Labs Reviewed, as above Imaging None new Assessment and plan We will continue IV antibiotics and peritoneal antibiotics per Dr. Painter's orders. The patient appears to be doing well. His NG tube will be removed today but we will not feed him until he is off of pressors to reduce the risk of any bowel necrosis. Repeat labs tomorrow
[2016-08-28] MEDS: FUROSEMIDE 40 MG/4 ML VIAL IV SCH (09:25)
[2016-08-28] MEDS: SPIRONOLACTONE 25 MG TABLET PO SCH (09:25)
--- NOTE | 2016-08-28 10:20 | XRay Report ---
History: Shortness of breath Date: 08/28/2016 Study: Chest x-ray AP portable Comparison exam: 08/27/2016 The endotracheal tube has been removed. Nasogastric tube and right IJ central line remain in place. There is stable cardiomegaly. The mediastinal contours are unchanged. The pulmonary vasculature is not engorged. There is no gross pleural effusion. There is shallow inspiration with mild platelike subsegmental atelectasis in the right base. There is no gross pleural effusion. There is no pneumothorax. Osseous structures are similar. Impression: Interval extubation. Increased mild platelike subsegmental atelectasis right lung base. Otherwise unchanged PROCEDURE INTERPRETED AT [facility] DEPARTMENT OF RADIOLOGY Final Report Signed by: Dr. Hattie Brizuela
--- NOTE | 2016-08-28 11:35 | Cardiology Progress Note ---
Assessment and Plan (1) Cardiomyopathy Status: Acute Assessment and plan: His ejection fraction this admission is 50-55%. He is clinically stable from this regard. Current Visit: Yes (2) Bilateral lower extremity edema Status: Acute Assessment and plan: This is better at this time. Current Visit: Yes (3) Hypoalbuminemia Status: Acute Assessment and plan: This will contribute to edema and hemodynamic issues. His processing there is illness. He did have some proteinuria. Current Visit: Yes (4) Hypotension Status: Acute Assessment and plan: He still of a pressor agent. We'll hold his Lasix and Aldactone today. Current Visit: Yes Cardiology - PN: Subj Interval history: The patient today is awake and alert and off the ventilator. His blood pressures to remain low is on Adam-Synephrine still. His heart rates are stable in sinus rhythm. He is had no cardiac complaints of chest pain other symptomatology. His preoperative echocardiogram was unremarkable. He's had no dysrhythmias since his surgery. I did instruct the nurses not to give him his Aldactone and Lasix today with his pressures being low. Exam (Progress Note) - Constitutional Vitals: Period Temp Pulse Resp BP Sys/Dorado Pulse Ox Last 24 Hr 96.5 F-97.7 F 72-89 12-22 73-123/40-62 97-100 Exam: Gen. appearance: Patient is awake and alert. He is no longer intubated. HEENT: NG tube in place. Atraumatic. He no longer has the endotracheal tube. Neck: Trachea midline. Lungs: Anteriorly bilaterally lung nielson are clear normal course breath sounds. Cardiovascular: Regular rate and rhythm with a 1 to 2/6 systolic murmur. Radial pulses are 2+. Abdomen: He is postop and protuberant with the peritoneal tubes in place. Extremities: He has some 1+ edema of his ankles. Extremities are warm though. Neurologic: He is awake and alert. Psychiatric: He is oriented and appropriate. Skin: Warm and dry. Result/EKG - Labs CBC & BMP: 08/28/16 04:15 08/28/16 04:15 Lab Results: I have reviewed the past 24 hour labs Labs: Laboratory Results - last 24 hr 08/27/16 08/27/16 08/28/16 13:44 23:25 04:15 WBC RBC Hgb Hct MCV MCH MCHC RDW Plt Count MPV Neut % (Auto) Lymph % (Auto) [facility] % (Auto) Eos % (Auto) Baso % (Auto) Neut # (Auto) Lymph # (Auto) [facility] # (Auto) Eos # (Auto) Baso # (Auto) Total Counted Immature Gran % Nucleated RBC % Immature Gran # Segmented Neutrophils Band Neutrophils Lymphocytes Monocytes Metamyelocytes Nucleated RBCs # Platelet Estimate Hypochromasia Anisocytosis Microcytosis Macrocytosis ABG pH 7.454 H 7.488 H ABG pCO2 38.6 37.1 ABG pO2 144.0 H 120.9 H ABG HCO3 27.2 H 27.5 H ABG Total CO2 22.7 L 28.7 H ABG O2 Saturation 98.8 98.5 ABG Base Excess 3.1 H 4.0 H Sodium Potassium 3.7 Chloride Carbon Dioxide Anion Gap BUN Creatinine GFR Calculation BUN/Creatinine Ratio Glucose Calculated Osmolality Calcium Magnesium Total Bilirubin AST ALT Alkaline Phosphatase Total Protein Albumin Globulin Albumin/Globulin Ratio 08/28/16 08/28/16 04:15 04:15 WBC 25.2 H RBC 3.22 L Hgb 9.4 L Hct 30.2 L MCV 93.8 MCH 29 MCHC 31.1 L RDW 15.9 Plt Count 407 H MPV 10.1 Neut % (Auto) 58.1 Lymph % (Auto) 16.9 L [facility] % (Auto) 15.3 H Eos % (Auto) 0.3 Baso % (Auto) 0.3 Neut # (Auto) 14.6 H Lymph # (Auto) 4.2 H [facility] # (Auto) 3.9 H Eos # (Auto) 0.1 Baso # (Auto) 0.1 Total Counted 100 Immature Gran % 9.1 Nucleated RBC % 0.2 Immature Gran # 2.28 Segmented Neutrophils 61 Band Neutrophils 1 Lymphocytes 17 L Monocytes 18 H Metamyelocytes 3 Nucleated RBCs # 0.04 Platelet Estimate Normal Hypochromasia 2+ Anisocytosis 2+ Microcytosis Slight Macrocytosis 2+ ABG pH ABG pCO2 ABG pO2 ABG HCO3 ABG Total CO2 ABG O2 Saturation ABG Base Excess Sodium 139 Potassium 3.6 Chloride 103 Carbon Dioxide 27 Anion Gap 12.6 BUN 38 H Creatinine 0.80 GFR Calculation 120 BUN/Creatinine Ratio 47.00 H Glucose 129 H Calculated Osmolality 287.5 Calcium 7.2 L Magnesium 2.0 Total Bilirubin 2.00 H AST 28 ALT 12 L Alkaline Phosphatase 64 Total Protein 4.9 L Albumin 1.6 L Globulin 3.3 Albumin/Globulin Ratio 0.4 L - Impressions Impressions: Telemetry normal sinus rhythm and normal rates. Quality Measures - VTE Contraindication to Pharmacological VTE Prophylaxis: High Risk of Bleeding - Stroke Symptom Onset Unknown: No
[2016-08-28] MEDS: SODIUM CHLORIDE 0.9% INTRAPERIT SCH (11:50)
[2016-08-28] MEDS: PROPOFOL 1,000 MG/100 ML BOTTLE IV SCH (11:50)
[2016-08-28] MEDS: CEFTAZIDIME INTRAPERIT SCH (11:50)
--- NOTE | 2016-08-28 12:17 | Pulmonology Progress Note ---
Pulmonary - PN: Subj Interval history: 71y/o M admitted for acute peritonitis from multiple organisms now s/p surgical drainage & extubated yesterday. Pt did well overnight but continues to require low dose vasopressors. Lasix/aldactone are being held. pt denies any breathing issues currently and is on minimal oxygen at this time. Exam (Progress Note) - Constitutional Vitals: Period Temp Pulse Resp BP Sys/[place] Pulse Ox Last 24 Hr 96.5 F-97.7 F 72-89 12-22 73-111/40-58 97-100 General appearance: normal weight, no acute distress - Head Head exam: Present: normal inspection - Eye Eye exam: Present: EOMI Pupils: Present: LEE - ENT ENT exam: Present: normal exam - Neck Neck exam: Present: normal inspection - Respiratory Respiratory exam: Present: clear to auscultation bilaterally. Absent: rhonchi, stridor, wheezes - Cardiovascular Cardiovascular exam: Present: regular rate and rhythm - GI/Abdominal GI/Abdominal exam: Present: hypoactive bowel sounds, tenderness (post-op), soft - Extremities Exam Extremities exam: Present: normal inspection - Neurological Exam Neurological exam: Present: alert, oriented X3, CN II-XII intact - Psychiatric Psychiatric exam: Present: normal affect - Skin Skin exam: Present: warm, dry Results - Labs CBC & BMP: 08/28/16 04:15 08/28/16 04:15 - Diagnostic Findings Procedure: Chest x-ray: image reviewed by me (unchanged, no acute abnormalities) Assessment and Plan (1) Peritonitis Status: Acute Assessment and plan: Multi-organ peritonitis s/p surgery on broad antibiotics awaiting final culture results. Organisms isolated thus far are sensitive to current antibiotics. Current Visit: Yes (2) Hypotension Status: Acute Assessment and plan: requiring low dose vasopressors. Titrate off as able & agree with holding diuretics for now. Consider re-culturing blood/sputum/urine/stool (C. diff) given his up-trending WBC count. Current Visit: Yes (3) Leukocytosis Status: Acute Assessment and plan: WBC continuing to increase. Consider re-culturing blood/sputum/urine/stool (C. diff) to eval for underlying other infectious etiology. Current Visit: Yes
[2016-08-28] MEDS: ENOXAPARIN 40 MG/0.4 ML SYRINGE SUBCUT SCH (12:18)
[2016-08-28] MEDS: LACTATED RINGERS 1,000 ML IV SCH (12:19)
--- NOTE | 2016-08-28 12:20 | Hospitalist Progress Note ---
Assessment and Plan - Time spent with patient Time spent with patient: Less than 30 minutes (1) Bilateral lower extremity edema Status: Acute Assessment and plan: 71-year-old -[place] male admitted by Dr. Cason from the ED with shortness of breath due to ascites and bilateral lower extremity edema. Patient has been followed by Dr. Escalante and is on multiple diuretics. Patient had a initial appointment for evaluation by Dr. Brizuela on 08/26/2016 scheduled. Will admit the patient to monitored bed, consult Dr. Escalante and Dr. Brizuela for evaluation. Will restart his home medicines. Will await results of CT scan and cultured paracentesis. We will go ahead and start the patient on some antibiotics for erythema and induration surrounding umbilicus. This is all been discussed with Dr. Cason. Further recommendations to follow. 08/24/16 CT the abdomen and pelvis showing bacterial peritonitis/peritoneal abscess. Patient's CEA is normal, white count up to 17, and his total bilirubin has doubled overnight to 4.8.. Dr. Painter from surgery has ordered a barium enema to evaluate for any masses. They also will check with IR to see if it is feasible to place a percutaneous drainage catheter. Antibiotics have been switched to Zosyn and Flagyl. Patient still may require surgery. Dr. Brizuela has also seen the patient and he feels since the serum ascites albumin gradient is low, it is consistent with inflammatory or malignant etiology. He recommended continuing the IV antibiotics and awaiting culture data and to repeat the paracentesis on Tuesday. If the ascites fluid is not improving it would suggest secondary bacterial peritonitis with suspected perforation and laparoscopy would be recommended. Dr. Serrano has also seen the patient for Dr. Escalante. He has consulted sleep medicine for suspected NGHIA, added spironolactone and IV Lasix. Appreciate consultants help with this patient. Patient has been made n.p.o. for further testing this morning. Further recommendations to follow per Dr. Cason. 08/26/2016 patient now status post laparoscopic exploration and washout of the abdomen. 2 sump drains have been placed. Dr. Painter is flushing the abdomen with antibiotics. Patient is on Cipro and Flagyl along with Ancef postoperatively. His blood pressures are stable on melba-that is slowly being weaned by nursing. Patient is afebrile. Patient's white blood cell count was down to 14.5 this morning and his H&H is stable postoperatively. His total bilirubin is down to 3.3 as well. His incision looks good and there is no signs of bleeding. His lower extremities are approximately half the size they were upon admission. Nothing further needs to be added today. We will continue to monitor. Further recommendations to follow per Dr. Cason 08/27/2016 patient is postop day 1 laparoscopic exploration and washout of the abdomen by Dr. Painter. 2 sump drains have been placed and antibiotics are being flushed through the abdomen. He does have some drainage on his dressings and this appears to be the antibiotic fluid. His total bilirubin is down to 2 and the remainder of his LFTs have normalized. His albumin is low and he could benefit from some infused but will leave this to Dr. Painter. Patient's creatinine is also normalized and he has good urine output that is clear. Patient's white count is up to 23.5 but this is expected postoperatively for his particular problem. He is on Cipro and Flagyl and postoperative Ancef. His H&H is stable. Patient's potassium is low today so this will be replaced. Chest x-ray did show that the NG tube was coiled in the distal esophagus. Have discussed this with nursing and she will adjust and/or replace until it is seated in the stomach. This is all been discussed with Dr. Cason and further recommendations to follow. 08/28/2016 patient is now postop day 2 laparoscopic exploration washout of the abdomen by Dr. Painter. [address] are in place and antibiotics are being flushed through the abdomen. Patient's cultures have returned and his antibiotics have been switched to ceftazidime, Cipro, and Flagyl. Patient continues to require melba-though this is being weaned at this time. His Lasix and Aldactone have been held per Dr. Riley due to pressures. His NG tube has been DC'd the patient is being kept n.p.o. until off pressors to avoid bowel necrosis. Patient's bilirubin is stable, urine output is good, H&H is stable and his blood sugars are okay. His white blood cell count is mildly elevated at 25.2 but he is afebrile. Will order him some Chloraseptic for his sore throat. Will get an incentive spirometer if he does not have one already. We will go ahead and consult PT and OT to start working with him most likely on Tuesday. Patient's case has been discussed with the nursing staff and Dr. Cason , the hospitalist. Further recommendations to follow Current Visit: Yes (2) Leukocytosis Status: Acute Current Visit: Yes (3) Hyperbilirubinemia Status: Acute Current Visit: Yes (4) CHF (congestive heart failure) Status: Acute Current Visit: Yes (5) Dyspnea Status: Acute Current Visit: Yes (6) Ascites Status: Acute Current Visit: Yes Qualifiers: Ascites type: malignant Qualified Code(s): R18.0 - Malignant ascites Hospitalist: Subjective Interval history: Patient is awake and alert and off the vent. He is still requiring some melba- for his hypertension. Patient is talking without complaints. He does have some abdominal soreness and bilateral lower extremity soreness but overall he feels great and he is happy to be alive. Exam - Constitutional Vitals: Period Temp Pulse Resp BP Sys/Dorado Pulse Ox Last 24 Hr 96.5 F-97.7 F 72-89 12-22 73-111/40-58 97-100 Exam: 71-year-old -[place] male, no acute distress, alert and oriented Chest clear CV regular rate and rhythm Abdomen protuberant with fluid wave, appropriately tender, incision okay with sump drains intact Extremities with 2+ edema Results - Labs CBC & BMP: 08/28/16 04:15 08/28/16 04:15 Lab Results: I have reviewed the past 24 hour labs - Diagnostic Findings Procedure: Chest x-ray: report reviewed by me (Atelectasis at right lung base) Quality Measures - VTE Contraindication to Pharmacological VTE Prophylaxis: High Risk of Bleeding - Stroke Symptom Onset Unknown: No
[2016-08-28] MEDS ORDERED: PHENOL 1.4% THROAT SPRAY 177 ML BOTTLE PO PRN (12:21)
[2016-08-29] MEDS: ALBUTEROL/IPRATROPIUM 3 ML NEB RESP TX SCH ×4 (00:08→20:34)
[2016-08-29] MEDS: LACTATED RINGERS 1,000 ML IV SCH ×3 (01:00→17:44)
[2016-08-29] MEDS: PHENYLEPHRINE DRIP 40 MG/250 ML PREMIX IV SCH ×2 (03:00→11:31)
[2016-08-29] MEDS: metroNIDAZOLE INJ 500 MG in PREMIX 1 EACH IV SCH ×4 (04:30→21:32)
[2016-08-29 05:11] LABS: ABG Base Excess 3.1 MMOL/L (-2.5-2.5); ABG HCO3 26.1 MMOL/L (20-26); ABG Oxygen Saturation 96.9 % (95-100); ABG PCO2 34.1 MM HG (35-48); ABG PH 7.502 (7.35-7.45); ABG PO2 87.5 MM HG (80-95); ABG TCO2 27.2 MMOL/L (23-27)
[2016-08-29 05:31] LABS: Basophils # 0.1 10*3/uL (0.0-0.2); Basophils % 0.3 % (0.0-0.8); Eosinophils # 0.1 10*3/uL (0.0-0.87); Eosinophils % 0.4 % (0.00-10.9); Hemoglobin 9.2 GM/DL (14.0-18.0); Immature Granulocytes % 10.7 %; Immature Granulocytes Absolute 2.67 #; Lymphocytes # 4.5 10*3/uL (1.4-4.0); Lymphocytes % 17.8 % (21.2-54.2); Mean Corpuscular HGB Conc 30.7 GM/DL (32-36); Mean Corpuscular Hemoglobin 29 PG (27-34); Mean Corpuscular Volume 95.8 FL (87-102); Mean Platelet Volume 10.3 FL (9.6-12.0); Monocytes # 2.6 10*3/uL (0.11-0.8); Monocytes % 10.2 % (1.7-12.7); NRBC # 0.04 10*3/uL; Neutrophils # 15.2 10*3/uL (1.4-7.4); Neutrophils % 60.6 % (38.7-73.9); Platelet Count 459 T/CUMM (130-400); Red Blood Count 3.13 MC/CUMM (3.8-5.5); Red Cell Distribution Width 16.2 % (9.3-17.3)
[2016-08-29 05:45] LABS: Calcium 7.2 MG/DL (8.5-10.1); Magnesium 1.8 MG/DL (1.8-2.4); Osmolality,Calculated 282.5 MOS/KG (273-304); Potassium 4.3 MMOL/L (3.5-5.1)
[2016-08-29 06:22] LABS: Band Neutrophils 3 % (0-10); Eosinophils 1 % (0-10); Hypochromasia 1+; Lymphocytes 16 % (20-55); Metamyelocytes 1 %; Microcytosis 1+; Segmented Neutrophils 71 % (50-85); Total Cells Counted 100
[2016-08-29 06:23] LABS: Platelet Estimate Increased
[2016-08-29] MEDS: CIPROFLOXACIN INJ 400 MG in PREMIX 1 EACH IV SCH ×3 (07:08→23:43)
[2016-08-29] MEDS ORDERED: ALBUMIN 25% 50 GM in PREMIX 1 EACH IV ONE (09:04)
--- NOTE | 2016-08-29 09:08 | Hospitalist Progress Note ---
Assessment and Plan - Time spent with patient Time spent with patient: Less than 30 minutes (1) Bilateral lower extremity edema Status: Acute Assessment and plan: 71-year-old -[place] male admitted by Dr. Cason from the ED with shortness of breath due to ascites and bilateral lower extremity edema. Patient has been followed by Dr. Escalante and is on multiple diuretics. Patient had a initial appointment for evaluation by Dr. Brizuela on 08/26/2016 scheduled. Will admit the patient to monitored bed, consult Dr. Escalante and Dr. Brizuela for evaluation. Will restart his home medicines. Will await results of CT scan and cultured paracentesis. We will go ahead and start the patient on some antibiotics for erythema and induration surrounding umbilicus. This is all been discussed with Dr. Cason. Further recommendations to follow. 08/24/16 CT the abdomen and pelvis showing bacterial peritonitis/peritoneal abscess. Patient's CEA is normal, white count up to 17, and his total bilirubin has doubled overnight to 4.8.. Dr. Painter from surgery has ordered a barium enema to evaluate for any masses. They also will check with IR to see if it is feasible to place a percutaneous drainage catheter. Antibiotics have been switched to Zosyn and Flagyl. Patient still may require surgery. Dr. Brizuela has also seen the patient and he feels since the serum ascites albumin gradient is low, it is consistent with inflammatory or malignant etiology. He recommended continuing the IV antibiotics and awaiting culture data and to repeat the paracentesis on Tuesday. If the ascites fluid is not improving it would suggest secondary bacterial peritonitis with suspected perforation and laparoscopy would be recommended. Dr. Serrano has also seen the patient for Dr. Escalante. He has consulted sleep medicine for suspected NGHIA, added spironolactone and IV Lasix. Appreciate consultants help with this patient. Patient has been made n.p.o. for further testing this morning. Further recommendations to follow per Dr. Cason. 08/26/2016 patient now status post laparoscopic exploration and washout of the abdomen. 2 sump drains have been placed. Dr. Painter is flushing the abdomen with antibiotics. Patient is on Cipro and Flagyl along with Ancef postoperatively. His blood pressures are stable on melba-that is slowly being weaned by nursing. Patient is afebrile. Patient's white blood cell count was down to 14.5 this morning and his H&H is stable postoperatively. His total bilirubin is down to 3.3 as well. His incision looks good and there is no signs of bleeding. His lower extremities are approximately half the size they were upon admission. Nothing further needs to be added today. We will continue to monitor. Further recommendations to follow per Dr. Cason 08/27/2016 patient is postop day 1 laparoscopic exploration and washout of the abdomen by Dr. Painter. 2 sump drains have been placed and antibiotics are being flushed through the abdomen. He does have some drainage on his dressings and this appears to be the antibiotic fluid. His total bilirubin is down to 2 and the remainder of his LFTs have normalized. His albumin is low and he could benefit from some infused but will leave this to Dr. Painter. Patient's creatinine is also normalized and he has good urine output that is clear. Patient's white count is up to 23.5 but this is expected postoperatively for his particular problem. He is on Cipro and Flagyl and postoperative Ancef. His H&H is stable. Patient's potassium is low today so this will be replaced. Chest x-ray did show that the NG tube was coiled in the distal esophagus. Have discussed this with nursing and she will adjust and/or replace until it is seated in the stomach. This is all been discussed with Dr. Cason and further recommendations to follow. 08/28/2016 patient is now postop day 2 laparoscopic exploration washout of the abdomen by Dr. Painter. [address] are in place and antibiotics are being flushed through the abdomen. Patient's cultures have returned and his antibiotics have been switched to ceftazidime, Cipro, and Flagyl. Patient continues to require melba-though this is being weaned at this time. His Lasix and Aldactone have been held per Dr. Riley due to pressures. His NG tube has been DC'd the patient is being kept n.p.o. until off pressors to avoid bowel necrosis. Patient's bilirubin is stable, urine output is good, H&H is stable and his blood sugars are okay. His white blood cell count is mildly elevated at 25.2 but he is afebrile. Will order him some Chloraseptic for his sore throat. Will get an incentive spirometer if he does not have one already. We will go ahead and consult PT and OT to start working with him most likely on Tuesday. Patient's case has been discussed with the nursing staff and Dr. Cason , the hospitalist. Further recommendations to follow 08/29/2016 patient is now postop day 3 laparoscopic exploration and washout of the abdomen by Dr. Painter. [address] are in place and antibiotics are continuing to be flushed through the abdomen. Patient is on ceftaz a dime, Cipro, and Flagyl per culture results. Patient's white blood cell count is 25 again today but the patient is afebrile. Patient continues to require melba-, and this has not been able to be weaned since yesterday. His systolic pressures are in the 90s. His Lasix and Aldactone are continuing to be held. We will go ahead and give the patient some albumin today. Patient continues to be n.p.o. until he is off pressors to avoid bowel necrosis. We will go ahead and start some TPN today as well. Urine output, creatinine, H&H, and blood sugars are all stable. PT and OT can start working with him in the morning, most likely some bed exercises to start off with. Patient's case has been discussed with Dr. Cota and Dr. Cason in further recommendations to follow. Current Visit: Yes (2) Leukocytosis Status: Acute Current Visit: Yes (3) Hyperbilirubinemia Status: Acute Current Visit: Yes (4) CHF (congestive heart failure) Status: Acute Current Visit: Yes (5) Dyspnea Status: Acute Current Visit: Yes (6) Ascites Status: Acute Current Visit: Yes Qualifiers: Ascites type: malignant Qualified Code(s): R18.0 - Malignant ascites Hospitalist: Subjective Interval history: Patient is resting comfortably in the bed. He has no complaints this morning other than some mild soreness from his abdomen and bilateral lower extremities. Exam - Constitutional Vitals: Period Temp Pulse Resp BP Sys/Dorado Pulse Ox Last 24 Hr 97.2 F-97.6 F 81-95 11-23 85-106/39-86 93-100 Exam: 71-year-old -[place] male, no acute distress, alert and oriented Chest clear CV regular rate and rhythm Abdomen soft, protuberant with fluid wave, incisions okay, sump drains intact Extremities with 1+ edema, toes are cool to touch but no signs of ischemia Results - Labs CBC & BMP: 08/29/16 04:45 08/29/16 04:45 Lab Results: I have reviewed the past 24 hour labs - Diagnostic Findings Procedure: Chest x-ray: pending Quality Measures - VTE Contraindication to Pharmacological VTE Prophylaxis: High Risk of Bleeding - Stroke Symptom Onset Unknown: No
[2016-08-29] MEDS: PANTOPRAZOLE 40 MG TABLET PO SCH (09:18)
[2016-08-29] MEDS: METOPROLOL SUCCINATE XL 50 MG TABLET PO SCH ×2 (09:32→21:31)
--- NOTE | 2016-08-29 09:34 | Cardiology Progress Note ---
Assessment and Plan (1) Cardiomyopathy Status: Acute Assessment and plan: His ejection fraction this admission is 50-55%. He is clinically stable from this regard. Current Visit: Yes (2) Bilateral lower extremity edema Status: Acute Assessment and plan: This is better at this time. Post edema some lower parts down his legs elevated. This is secondary think to multiple factors including hypoalbuminemia and his nutritional status. Current Visit: Yes (3) Hypoalbuminemia Status: Acute Assessment and plan: This problem from his medical issues. Current Visit: Yes (4) Hypotension Status: Acute Assessment and plan: He still of a pressor agent. This lady multifactorial. Diuretics can be held at this time. Current Visit: Yes Cardiology - PN: Subj Interval history: The patient from a cardiac standpoint is done well. He's had no dysrhythmias. He remains in sinus rhythm. His blood pressures remained on the low side continues pressors. Because of his pressures is diuretics need to be held for the time being. He has a history of cardiomyopathy but his ejection fraction submission per echo with 5055%. Heart is edema issue is that of hypoalbuminemia with his abdominal issues. Exam (Progress Note) - Constitutional Vitals: Period Temp Pulse Resp BP Sys/Dorado Pulse Ox Last 24 Hr 97.2 F-97.6 F 81-95 11-23 85-106/39-86 93-100 Exam: Gen. appearance: Patient is awake and alert. HEENT: NG tube in place. Atraumatic. Neck: Trachea midline. Lungs: Anteriorly bilaterally lung nielson are clear normal course breath sounds. Cardiovascular: Regular rate and rhythm with a 1 to 2/6 systolic murmur. Radial pulses are 2+. Abdomen: He is postop and protuberant with the peritoneal tubes in place. Extremities: His ankle-foot edema is stable and essentially minimal. He is having most of his edema on the lower part of his body with his legs elevated which is his thighs buttocks and sacral/buttock area. Extremities are warm though. Neurologic: He is awake and alert. Psychiatric: He is oriented and appropriate. Skin: Warm and dry. Result/EKG - Labs CBC & BMP: 08/29/16 04:45 08/29/16 04:45 Lab Results: I have reviewed the past 24 hour labs Labs: Laboratory Results - last 24 hr 08/29/16 08/29/16 08/29/16 04:45 04:45 04:45 WBC 25.0 H RBC 3.13 L Hgb 9.2 L Hct 30.0 L MCV 95.8 MCH 29 MCHC 30.7 L RDW 16.2 Plt Count 459 H MPV 10.3 Neut % (Auto) 60.6 Lymph % (Auto) 17.8 L [place] % (Auto) 10.2 Eos % (Auto) 0.4 Baso % (Auto) 0.3 Neut # (Auto) 15.2 H Lymph # (Auto) 4.5 H [place] # (Auto) 2.6 H Eos # (Auto) 0.1 Baso # (Auto) 0.1 Total Counted 100 Immature Gran % 10.7 Nucleated RBC % 0.2 Immature Gran # 2.67 Segmented Neutrophils 71 Band Neutrophils 3 Lymphocytes 16 L Monocytes 7 Eosinophils 1 Basophils 1.0 H Metamyelocytes 1 Nucleated RBCs # 0.04 Platelet Estimate Increased Hypochromasia 1+ Microcytosis 1+ Morphology Comment ABG pH 7.502 H ABG pCO2 34.1 L ABG pO2 87.5 ABG HCO3 26.1 H ABG Total CO2 27.2 H ABG O2 Saturation 96.9 ABG Base Excess 3.1 H Sodium 139 Potassium 4.3 Chloride 107 Carbon Dioxide 26 Anion Gap 10.3 BUN 27 H Creatinine 0.70 GFR Calculation 127 BUN/Creatinine Ratio 38.00 H Glucose 116 H Calculated Osmolality 282.5 Calcium 7.2 L Magnesium 1.8 - Impressions Impressions: Telemetry with continued rhythm at sinus and controlled rates. Quality Measures - VTE Contraindication to Pharmacological VTE Prophylaxis: High Risk of Bleeding - Stroke Symptom Onset Unknown: No
--- NOTE | 2016-08-29 10:10 | XRay Report ---
History: Shortness of breath Date: 08/29/2016 Study: Chest x-ray AP portable Comparison exam: 08/28/2016 The right IJ central line is in stable satisfactory position. The nasogastric tube has been removed. There is stable mild cardiomegaly. The mediastinal contour is unchanged. The pulmonary vasculature is not engorged. There is continued mild platelike atelectasis in the lower lungs. There is no obvious new or worsening infiltrate. There is no pneumothorax. There is no gross pleural effusion. Osseous structures are unchanged. Impression: Interval nasogastric tube removal. Continued mild bibasilar platelike atelectasis, more on the right. Otherwise unchanged PROCEDURE INTERPRETED AT [facility] DEPARTMENT OF RADIOLOGY Final Report Signed by: Dr. Hattie Brizuela
[2016-08-29] MEDS: SODIUM CHLORIDE 0.9% INTRAPERIT SCH (11:03)
[2016-08-29] MEDS: HYDROmorphone 2 MG/1 ML VIAL IV PRN (11:03)
[2016-08-29] MEDS: CEFTAZIDIME INTRAPERIT SCH (11:03)
[2016-08-29] MEDS: SPIRONOLACTONE 25 MG TABLET PO SCH (11:04)
[2016-08-29] MEDS: FUROSEMIDE 40 MG/4 ML VIAL IV SCH (11:04)
[2016-08-29] MEDS: PROPOFOL 1,000 MG/100 ML BOTTLE IV SCH (13:06)
--- NOTE | 2016-08-29 13:11 | Event Note ---
General Surgery Progress Note Chief complaint This patient is a 71-year-old man who is admitted with peritonitis treated with laparoscopic drainage of infected abdominal peritoneal fluid with no discrete source identified and drain placement on 08/26/2016 Interval history The patient had a fairly quiet day yesterday. He is still on some pressor support. It is not much different than yesterday. He is not passing gas or having bowel movements. He does not feel hungry at all but is not having any nausea or vomiting after his NG tube was removed. Physical exam The patient is afebrile but hypotensive and on Adam-Synephrine to support his blood pressure Abdominal exam reveals tinkling bowel sounds and is appropriately tender with no evidence of erythema around the incision. The drains appear intact. Labs Reviewed Imaging None new Assessment and plan The patient is not ready to start on a diet yet because he is still on pressors and is really not passing anything by rectum. We will continue his current care and try get him up in a chair some today. Continue antibiotics and the peritoneal catheter and IV and Dr. Painter will be back tomorrow to take back over.
[2016-08-29] MEDS ORDERED: GLUCAGON 1 MG VIAL IM PRN (14:46)
[2016-08-29] MEDS ORDERED: DEXTROSE 10% 1,000 ML IV PRN (14:46)
[2016-08-29] MEDS ORDERED: DEXTROSE 50% 25 GM/50 ML VIAL IV PRN (14:46)
[2016-08-29] MEDS: ENOXAPARIN 40 MG/0.4 ML SYRINGE SUBCUT SCH (15:13)
[2016-08-29] MEDS ORDERED: TRACE ELEMENTS (5) 1 ML, MULTIVITAMIN INJ 10 ML in AMINO ACIDS/DEXT/LYTES 5-15% 2,000 ML IV SCH (17:00)
[2016-08-29] MEDS: FAT EMULSION 20% 250 ML IV SCH (17:44)
[2016-08-29] MEDS: INSULIN REGULAR 100 UNIT/ML SUBCUT SCH (18:27)
[2016-08-29] MEDS: DESITIN 4OZ/NYSTATIN 15 GRAM MIXTURE PASTE TOP SCH (21:32)
[2016-08-30] MEDS: INSULIN REGULAR 100 UNIT/ML SUBCUT SCH ×5 (00:30→23:51)
[2016-08-30] MEDS: ALBUTEROL/IPRATROPIUM 3 ML NEB RESP TX SCH ×4 (01:11→18:59)
[2016-08-30] MEDS: metroNIDAZOLE INJ 500 MG in PREMIX 1 EACH IV SCH ×4 (02:28→20:40)
[2016-08-30 03:31] LABS: ABG Base Excess 0.9 MMOL/L (-2.5-2.5); ABG HCO3 25.3 MMOL/L (20-26); ABG Oxygen Saturation 96.8 % (95-100); ABG PCO2 34.5 MM HG (35-48); ABG PH 7.459 (7.35-7.45); ABG PO2 80.2 MM HG (80-95); ABG TCO2 22.6 MMOL/L (23-27)
[2016-08-30 04:08] LABS: Calcium 7.1 MG/DL (8.5-10.1); Magnesium 1.8 MG/DL (1.8-2.4); Osmolality,Calculated 281.7 MOS/KG (273-304)
[2016-08-30 04:20] LABS: Phosphorous 1.3 MG/DL (2.5-4.9); Prealbumin 18.3 MG/DL (20-40)
[2016-08-30] MEDS: PHENYLEPHRINE DRIP 40 MG/250 ML PREMIX IV SCH (05:12)
[2016-08-30] MEDS: LACTATED RINGERS 1,000 ML IV SCH ×3 (05:13→22:08)
[2016-08-30] MEDS: CIPROFLOXACIN INJ 400 MG in PREMIX 1 EACH IV SCH ×3 (06:00→23:32)
--- NOTE | 2016-08-30 07:28 | XRay Report ---
XR chest 1V portable Indication: Shortness of breath Comparison: Chest x-ray 08/29/2016. Technique: Portable AP chest was performed. Findings: Heart size, mediastinal contour, and hilar structures demonstrate no evidence of acute pathology. Lungs are clear. Minimal elevation of the right hemidiaphragm is stable. Bones and soft tissues demonstrate no evidence of acute pathology. Right central venous catheter is stable. Impression: 1. No evidence of acute pathology. 08/30/2016 7:25 AM PROCEDURE INTERPRETED AT [facility] DEPARTMENT OF RADIOLOGY Final Report Signed by: Dr. Mac Cosby
--- NOTE | 2016-08-30 07:50 | General Surgery Progress Note ---
Assessment and Plan - Time spent with patient Time spent with patient: Less than 30 minutes (1) Abdominal mass Status: Acute Assessment and plan: Impression: 1. Abdominal mass etiology unclear with extension towards the umbilicus. We need to consider near neoplastic process 2. Ascites etiology unclear 3. Congestive heart failure. Plan: 1. At this point were waiting on the fluids that were drawn off see if there is any unusual sales or abnormality seen with that. We will start some local care to the abdominal wall at this point time to keep things smooth and dry well protected. 2. Because of the mass-effect and induration around the umbilicus which could be infectious in nature I think we have to consider that this could be a neoplastic process. I think patient needs an be in good medical condition before considering any surgery at this point in order to ensure that we get the best results long-term. 08/30/2016 Patient is off the ventilator and sump drainage is decreasing. He still remains somewhat distended with some hypoactive bowel sounds but will try him on some liquids today. WBC is hanging around 25,000 the rest of his labs look normal. Generally he looks very good and I think it be veras to go ahead and try to advance his diet and see how he basically does. Current Visit: Yes Qualifiers: Abdominal location: periumbilical Qualified Code(s): R19.05 - Periumbilic swelling, mass or lump (2) Abdominal mass Status: Acute Current Visit: Yes Subjective Patient reports: Present: feels better, no bowel movement, afebrile Exam - Constitutional Vitals: Period Temp Pulse Resp BP Sys/Dorado Pulse Ox Last 24 Hr 97.6 F-98.6 F 77-98 10-25 72-112/40-65 92-100 General appearance: no acute distress - Head Head exam: Present: normal inspection - ENT ENT exam: Present: normal exam - Neck Neck exam: Present: normal inspection - Respiratory Respiratory exam: Present: rales, rhonchi - Cardiovascular Cardiovascular exam: Present: RRR - GI/Abdominal GI/Abdominal exam: Present: distended, hypoactive bowel sounds, soft, other ( Sump drainage is decreasing). Absent: tenderness - Extremities Exam Extremities exam: Present: normal inspection - Back Exam Back exam: Present: normal inspection - Neurological Exam Neurological exam: Present: alert, oriented X3, CN II-XII intact - Skin Skin exam: Present: normal color, warm, dry Results - Labs CBC & BMP: 08/29/16 04:45 08/30/16 03:15 Lab Results: I have reviewed the past 24 hour labs Quality Measures - VTE Contraindication to Pharmacological VTE Prophylaxis: High Risk of Bleeding - Stroke Symptom Onset Unknown: No
[2016-08-30] MEDS: SPIRONOLACTONE 25 MG TABLET PO SCH (09:54)
[2016-08-30] MEDS: DESITIN 4OZ/NYSTATIN 15 GRAM MIXTURE PASTE TOP SCH ×2 (09:55→20:42)
[2016-08-30] MEDS: PANTOPRAZOLE 40 MG TABLET PO SCH (09:55)
[2016-08-30] MEDS: METOPROLOL SUCCINATE XL 50 MG TABLET PO SCH ×2 (09:56→20:42)
[2016-08-30] MEDS: FUROSEMIDE 40 MG/4 ML VIAL IV SCH (10:00)
[2016-08-30] MEDS: PROPOFOL 1,000 MG/100 ML BOTTLE IV SCH (10:13)
--- NOTE | 2016-08-30 10:41 | Pulmonology Progress Note ---
Pulmonary - PN: Subj Interval history: Mr. Dale is a 71 year old male that we saw in initial pulmonary consultation on 08/26/16. At that time, our impression were: 1. Acute peritonitis. Multiple organisms. Post abdominal surgery. 2. Hypotension. 3. Postop ventilator dependent. 4. High blood pressure 5. Heart disease. July 21 ejection fraction of 40% with mild mitral regurgitation, mild pulmonary regurgitation , mild to moderate tricuspid regurgitation. 6. Past history of congestive heart failure. 7. See past history. See surgical, cardiac, and GI consultation. See hospitalist note. 08/27/16. The patient appeared very strong this morning, so we placed him on a t- tube. ABGs were obtained and were acceptable. He was subsequently extubated. He is doing well post-extubation. 08/30/2016. Patient was extubated 08/27/2016. From a pulmonary standpoint he has done very well. His chest x-ray is normal. There are no infiltrates. There is no congestive heart failure. Today's ABGs show a pH of 7.46, PCO2 of 34.5, PO2 of 80.2 and a bicarb of 25.3. Electrolytes are normal. Creatinine is 0.7 with a BUN of 25. Peritoneal fluid grew E. coli, Enterococcus faecalis and Enterobacter aerogenes since. An additional growth of Pseudomonas has been reported on 08/26/2016. I will sign off. Please reconsult as needed. Medications have been reviewed. Labs have been reviewed. Physical exam. Vital signs. See below. Afebrile Psychiatric. Alert oriented and very pleased with how much better he is doing. Neurologic. Cranial nerves are intact. Patient moves all fours. Face is symmetrical. Lips and tongue are normal. Neck. Symmetrical. No meningismus. Lymphatics. No submandibular cervical supraclavicular or epitrochlear adenopathy. Chest. Clear. No wheeze. No rales. Heart. No gallop. Abdomen. Postsurgical Lower extremities. Nothing to suggest deep venous thrombophlebitis The remainder of the physical exam is noncontributory. Plan. 1. Continue inhalation therapy a few more days. 2. I will sign off. Please reconsult whenever needed. Exam (Progress Note) - Constitutional Vitals: Period Temp Pulse Resp BP Sys/Dorado Pulse Ox Last 24 Hr 97.6 F-98.6 F 77-98 10-27 72-112/40-65 92-100 Results - Labs CBC & BMP: 08/29/16 04:45 08/30/16 03:15
[2016-08-30] MEDS: ENOXAPARIN 40 MG/0.4 ML SYRINGE SUBCUT SCH (11:19)
[2016-08-30] MEDS: SODIUM CHLORIDE 0.9% INTRAPERIT SCH ×2 (11:21→11:22)
[2016-08-30] MEDS: CEFTAZIDIME INTRAPERIT SCH ×2 (11:21→11:22)
--- NOTE | 2016-08-30 12:58 | Hospitalist Progress Note ---
Assessment and Plan (1) Ascites Status: Acute Assessment and plan: His ascites is significantly improved. He has a sump drain in place. Total drainage has decreased. Current Visit: Yes Qualifiers: Ascites type: malignant Qualified Code(s): R18.0 - Malignant ascites (2) Abdominal mass Status: Acute Assessment and plan: It is unclear whether this mass is a neoplasm, although it is certainly suspicious. Surgery has deferred any operations until he is more stable. Current Visit: Yes Qualifiers: Abdominal location: periumbilical Qualified Code(s): R19.05 - Periumbilic swelling, mass or lump (3) Peritonitis Status: Acute Assessment and plan: He is presently being treated with intravenous ceftazidime and metronidazole. Current Visit: Yes Hospitalist: Subjective Interval history: Mr. Dale is a 71-year-old -[place] male who was hospitalized here with abdominal swelling. He was found to have an abdominal mass and ascites with acute peritonitis. It is still unclear whether he has a primary neoplastic process or another process causing him to have peritonitis. He required intubation and assisted ventilation, both of which have been discontinued at this time. He is presently tolerating a clear liquid diet with no difficulty. Exam - Constitutional Vitals: Period Temp Pulse Resp BP Sys/Dorado Pulse Ox Last 24 Hr 97.6 F-98.6 F 77-96 12-27 78-127/40-66 92-100 General appearance: no acute distress - Head Head exam: Present: normal inspection, normocephalic - Eye Eye exam: Present: EOMI Pupils: Present: LEE - Neck Neck exam: Present: normal inspection - Respiratory Respiratory exam: Present: clear to auscultation bilaterally - Cardiovascular Cardiovascular exam: Present: regular rate and rhythm - GI/Abdominal GI/Abdominal exam: Present: distended, hypoactive bowel sounds, soft, other ( sump drain) - Extremities Exam Extremities exam: Present: normal inspection - Neurological Exam Neurological exam: Present: alert, oriented X3 - Psychiatric Psychiatric exam: Present: normal affect, normal mood - Skin Skin exam: Present: normal color, warm, dry Results - Labs CBC & BMP: 08/29/16 04:45 08/30/16 03:15 Quality Measures - VTE Contraindication to Pharmacological VTE Prophylaxis: High Risk of Bleeding - Stroke Symptom Onset Unknown: No
--- NOTE | 2016-08-30 13:17 | Cardiology Progress Note ---
Assessment and Plan - Time spent with patient Time spent with patient: Greater than 30 minutes (1) Ascites Status: Acute Assessment and plan: Assessment and plan 08/23/2016: 1. 71-year-old BM with 3-4 months of increased lower extremity edema and ascites/anasarca feeling much better after large volume paracentesis earlier today. 2. 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 Consult sleep medicine. 3. Mild cardiomyopathy with ejection fraction of 40% July 2016 in the clinic; he is followed Dr. Escalante 4. Add spironolactone 25 mg twice a day 5. Add IV Lasix 40 mg twice a day 6. Check electrolytes and renal function 08/24/2016: 1. Improved abdominal fullness status post paracentesis 2. Normal LV systolic function with EF 55% yesterday, without enlarged right ventricle 3. At least moderate pulmonary hypertension suggested by echocardiogram oh ( PAP 40-53 mmHg) 4. Reduce IV Lasix to once daily, continue spironolactone at 25 millions per day. 5. GI workup in process 6. Periodically check Electrolytes and renal function 7. We'll follow with you. 08/25/2016: Current Visit: Yes Qualifiers: Ascites type: malignant Qualified Code(s): R18.0 - Malignant ascites (2) Bilateral lower extremity edema Status: Acute Assessment and plan: Continue current plan of care Current Visit: Yes (3) Dyspnea Status: Acute Assessment and plan: Continue current plan of care Current Visit: Yes Cardiology - PN: Subj Interval history: [employer]: DR. ESCALANTE SUMMARY: Mr. Dale, 71-year-old -[place] male, is a patient Dr. Escalante. Dr. Escalante initially saw patient July 21, 2016 for edema in lower extremities, abdomen and dyspnea on exertion. Adjustments in his diuretics were made. He continued to become more short of breath and he came to the emergency department at [facility] August 23, 2016. Echocardiogram revealed EF 50%, mild to moderate mitral regurgitation with sclerosing aortic valve and mild to moderate tricuspid regurgitation with mild to moderately elevated right-sided pressures.. He was found to have ascites and underwent ultrasound-guided paracentesis with over 2000 mL of malodorous, serous ascitic fluid with debris being removed. During the hospital stay, he has had several runs of PAT and NSVT. Her beta-jose manuel was increased. He has undergone exploratory laparotomy with drainage of abdomen and placement of drain on August 26, 2016, performed by Dr. Painter. From a cardiac standpoint, he has been doing well over the weekend. He has had no dysrhythmias. It is felt that his edema may be related to hypoalbuminemia and his nutritional status. He does have severe untreated sleep apnea as well. AUGUST 30, 2016: Over the weekend, patient seems to be doing well. He has had no dysrhythmia and remains in normal sinus rhythm. Yesterday, white blood cell count was 25. I will order CBC today. Also, blood cultures 2 and urinalysis will be ordered as well. He is tolerating metoprolol succinate 50 mg orally twice daily. ASSESSMENT/PLAN: 1. ASCITES -continue current plan of care 2. BLE EDEMA - much improved. Continue with IV Lasix TEDs. 3. HYPOALBUMINEMIA -continue current plan of care 4. CARDIOMYOPATHY -resolved as his EF is noted to be 50%. Unable to determine whether this was ischemic and nonischemic. 5. SLEEP APNEA -untreated sleep apnea. Has declined a sleep workup in the past 6. ANEMIA -hemoglobin and hematocrit has drifted down during this hospital stay. Will order CBC tomorrow, anemia profile and check stool for occult blood. 7. LEUKOCYTOSIS -adding blood cultures, urine culture, chest x-ray in the morning. Patient has had steroids during this hospital stay and he is afebrile. Exam (Progress Note) - Constitutional Vitals: Period Temp Pulse Resp BP Sys/Dorado Pulse Ox Last 24 Hr 97.6 F-98.6 F 77-96 12-27 78-127/40-66 92-100 Exam: General: [Appears well with no apparent distress.] [Pleasant and cooperative. ] [Appears comfortable.] HEENT: [PERRL, normocephalic, atraumatic. Mucous membranes moist. No jaundice noted. Conjunctiva moist and clear, sclerae anicteric] Neck: No JVD/HJR, no thyromegaly or lymphadenopathy noted. No carotid bruit appreciated Cardiac: [Regular rate and rhythm.] [No murmur rub or gallop.] Lungs: [Clear to auscultation without accessory muscle use to assist the respiratory pattern.] Using oxygen intermittently. Abdomen: Soft, bowel sounds normoactive. Tube noted to the right lower abdominal quadrant. No masses noted. Musculoskeletal: No fluid collection. Decreased range of motion is noted. Extremities: No clubbing, cyanosis noted. [Trace to 1+ bilateral lower extremity edema. ] Upper extremity pulses 2+. Lower extremity pulses 2+. Capillary refill less than 3 seconds. Skin: No unusual lesions or rashes. No skin breakdown appreciated. Neuro: Awake, alert and oriented 3. Moves all extremities well without hemiparesis or paralysis. No essential tremor is appreciated. Result/EKG - Labs CBC & BMP: 08/29/16 04:45 08/30/16 03:15 Lab Results: I have reviewed the past 24 hour labs Labs: Laboratory Results - last 24 hr 08/29/16 08/30/16 08/30/16 17:52 00:04 03:15 ABG pH 7.459 H ABG pCO2 34.5 L ABG pO2 80.2 ABG HCO3 25.3 ABG Total CO2 22.6 L ABG O2 Saturation 96.8 ABG Base Excess 0.9 Sodium Potassium Chloride Carbon Dioxide Anion Gap BUN Creatinine GFR Calculation BUN/Creatinine Ratio Glucose POC Glucose 165 H 160 H Calculated Osmolality Calcium Phosphorus Magnesium Prealbumin 08/30/16 08/30/16 08/30/16 03:15 03:15 05:16 ABG pH ABG pCO2 ABG pO2 ABG HCO3 ABG Total CO2 ABG O2 Saturation ABG Base Excess Sodium 138 Potassium 4.0 Chloride 107 Carbon Dioxide 26 Anion Gap 9.0 BUN 25 H Creatinine 0.70 GFR Calculation 127 BUN/Creatinine Ratio 35.00 H Glucose 144 H POC Glucose 154 H Calculated Osmolality 281.7 Calcium 7.1 L Phosphorus 1.3 L Magnesium 1.8 Prealbumin 18.3 L 08/30/16 11:57 ABG pH ABG pCO2 ABG pO2 ABG HCO3 ABG Total CO2 ABG O2 Saturation ABG Base Excess Sodium Potassium Chloride Carbon Dioxide Anion Gap BUN Creatinine GFR Calculation BUN/Creatinine Ratio Glucose POC Glucose 137 H Calculated Osmolality Calcium Phosphorus Magnesium Prealbumin - EKG EKG results: interpreted by me EKG shows: sinus rhythm Quality Measures - VTE Contraindication to Pharmacological VTE Prophylaxis: High Risk of Bleeding - Stroke Symptom Onset Unknown: No
[2016-08-30 14:30] LABS: Basophils # 0.1 10*3/uL (0.0-0.2); Basophils % 0.3 % (0.0-0.8); Eosinophils # 0.2 10*3/uL (0.0-0.87); Eosinophils % 0.7 % (0.00-10.9); Hematocrit 33.1 VOL% (42.0-52.0); Hemoglobin 9.8 GM/DL (14.0-18.0); Immature Granulocytes % 11.7 %; Immature Granulocytes Absolute 2.99 #; Lymphocytes # 4.4 10*3/uL (1.4-4.0); Mean Corpuscular HGB Conc 29.6 GM/DL (32-36); Mean Corpuscular Hemoglobin 30 PG (27-34); Mean Corpuscular Volume 101.2 FL (87-102); Mean Platelet Volume 9.8 FL (9.6-12.0); Monocytes # 2.6 10*3/uL (0.11-0.8); NRBC # 0.16 10*3/uL; Neutrophils # 15.5 10*3/uL (1.4-7.4); Neutrophils % 60.3 % (38.7-73.9); Platelet Count 384 T/CUMM (130-400); Red Blood Count 3.27 MC/CUMM (3.8-5.5); Red Cell Distribution Width 17.1 % (9.3-17.3); White Blood Count 25.6 T/CUMM (4-12)
[2016-08-30 15:05] LABS: Folate 18.7 NG/ML (5.4-24.0); Vitamin B12 1685 PG/ML (211-911)
[2016-08-30 15:07] LABS: Apearance,Urine Slightly Hazy (Clear); Bacteria,Urine Occasional /HPF (Few); Bilirubin,Urine Negative (Negative); Blood, Urine Negative (Negative); Glucose,Urine (UA) Negative (Negative); Ketones,Urine Negative (Negative); Mucus,Urine Occasional /LPF (Occasional); Nitrite,Urine Negative (Negative); Protein,Urine Negative; RBC,Urine 6 /HPF (0-4); Squamous Epithelial Cell,Urine Occasional /HPF (0-10); Urine Color Yellow (Yellow); Urine Urobilinogen < 2.0 EU/DL (0.2-1.0); WBC,Urine 6 /HPF (0-6)
[2016-08-30 15:09] LABS: Eosinophils 2 % (0-10); Lymphocytes 20 % (20-55); Metamyelocytes 2 %; Nucleated Red Blood Cells 1 (0-5); Platelet Estimate Normal; Polychromasia Few; Segmented Neutrophils 66 % (50-85); Total Cells Counted 100
[2016-08-30] MEDS: FAT EMULSION 20% 250 ML IV SCH (15:21)
[2016-08-30 16:20] LABS: Sedimentation Rate-Westergren 84 MM/HR (0-20)
[2016-08-30] MEDS: MULTIVITAMIN INJ 10 ML in AMINO ACIDS/DEXT/LYTES 5-15% 2,000 ML IV SCH (16:32)
[2016-08-30] MEDS ORDERED: DEXTROSE 10% 1,000 ML IV PRN (17:00)
[2016-08-30] MEDS ORDERED: HEPARIN/NACL 0.9% 2 UNITS/ML 500 ML IV ONE (21:42)
[2016-08-31] MEDS: ALBUTEROL/IPRATROPIUM 3 ML NEB RESP TX SCH ×4 (00:52→19:43)
[2016-08-31] MEDS: metroNIDAZOLE INJ 500 MG in PREMIX 1 EACH IV SCH ×4 (03:35→20:40)
[2016-08-31 04:52] LABS: Basophils # 0.1 10*3/uL (0.0-0.2); Basophils % 0.3 % (0.0-0.8); Eosinophils # 0.2 10*3/uL (0.0-0.87); Eosinophils % 0.7 % (0.00-10.9); Hematocrit 28.7 VOL% (42.0-52.0); Hemoglobin 9.1 GM/DL (14.0-18.0); Immature Granulocytes % 9.6 %; Immature Granulocytes Absolute 2.25 #; Mean Corpuscular HGB Conc 31.7 GM/DL (32-36); Mean Corpuscular Hemoglobin 31 PG (27-34); Mean Corpuscular Volume 96.3 FL (87-102); Mean Platelet Volume 9.9 FL (9.6-12.0); Monocytes # 2.4 10*3/uL (0.11-0.8); Monocytes % 10.2 % (1.7-12.7); NRBC # 0.11 10*3/uL; Neutrophils # 15.4 10*3/uL (1.4-7.4); Neutrophils % 66.2 % (38.7-73.9); Platelet Count 333 T/CUMM (130-400); Red Blood Count 2.98 MC/CUMM (3.8-5.5); Red Cell Distribution Width 17.3 % (9.3-17.3); White Blood Count 23.3 T/CUMM (4-12)
[2016-08-31 04:54] LABS: ABG Base Excess 1.5 MMOL/L (-2.5-2.5); ABG HCO3 25.8 MMOL/L (20-26); ABG Oxygen Saturation 97.4 % (95-100); ABG PCO2 36.9 MM HG (35-48); ABG PH 7.447 (7.35-7.45); ABG PO2 87.9 MM HG (80-95); ABG TCO2 23.3 MMOL/L (23-27)
[2016-08-31 05:10] LABS: Calcium 7.3 MG/DL (8.5-10.1); Magnesium 1.7 MG/DL (1.8-2.4); Osmolality,Calculated 280.7 MOS/KG (273-304); Potassium 3.8 MMOL/L (3.5-5.1)
[2016-08-31 05:16] LABS: Band Neutrophils 2 % (0-10); Eosinophils 4 % (0-10); Hypochromasia 1+; Lymphocytes 16 % (20-55); Macrocytosis Slight; Platelet Estimate Adequate; Polychromasia Slight; Segmented Neutrophils 69 % (50-85); Total Cells Counted 100
[2016-08-31] MEDS: INSULIN REGULAR 100 UNIT/ML SUBCUT SCH ×4 (05:50→23:39)
[2016-08-31] MEDS: CIPROFLOXACIN INJ 400 MG in PREMIX 1 EACH IV SCH ×3 (06:30→23:38)
--- NOTE | 2016-08-31 07:22 | XRay Report ---
Portable chest. Indication: Shortness of breath. Comparison: August 30, 2016. The heart is normal in size. The pulmonary vasculature is normal. The left lung is clear. There is stable elevation of the right hemidiaphragm. There is worsening atelectasis in the right lung base. The distal tip of the right IJ line is in the right atrium. There is worsening gaseous distention of bowel. Impression: 1. Worsening right basilar atelectasis. 2. Gaseous distention of bowel PROCEDURE INTERPRETED AT [facility] DEPARTMENT OF RADIOLOGY Final Report Signed by: Dr. Alexa Wharton
[2016-08-31] MEDS: PHENYLEPHRINE DRIP 40 MG/250 ML PREMIX IV SCH ×2 (08:24→09:53)
--- NOTE | 2016-08-31 08:46 | General Surgery Progress Note ---
Assessment and Plan - Time spent with patient Time spent with patient: Less than 30 minutes (1) Abdominal mass Status: Acute Assessment and plan: 08/31/16 Improving slowly. He's anxious to improve his mobility but up until last night was on pressor support. Hopefully now we can slowly get him more mobile. We will continue IV/intraperitoneal antibiotics. Will look at advancing his diet to fulls. OK to transfer to LTACH soon if hospitalists agree. 08/27/16 Stable post op lap abdominal exploration with washout. Likely this was a large smoldering diverticular abscess. We've now drained the pelvis and LLQ, with good results from systemic and intra-abdominal antibiotic irrigations. We' ll hope to see him extubated soon and when bowel sounds resume, can begin PO intake. If the infection continues to respond and inflammation resolve, he could potentially be addressed surgically with elective left/sigmoid colectomy in the future, avoiding colostomy. 08/24/16 Large peritoneal omental caking with peritonitis. No gross colonic abnormalities or perforations seen, but there is still no definite etiology for the clinical & CT abnormalities. We will plan BE to get a look at the colon. The patient isn't favorable to surgery at this point, so I'll check with IR to see if they think it's feasible to place a percutaneous drainage catheter. We will continue IV antibiotics and watch the abdominal wall closely. He certainly appears to feel better, however the overall picture is unclear, and he still may require surgery. Current Visit: Yes Qualifiers: Abdominal location: periumbilical Qualified Code(s): R19.05 - Periumbilic swelling, mass or lump Subjective Patient reports: Present: feels better, tolerating liquids well, no bowel movement, other (His only c/o is that his bed is uncomfortable and he wants to begin walking but cannot 'stand up.' ) Exam - Constitutional Vitals: Period Temp Pulse Resp BP Sys/Dorado Pulse Ox Last 24 Hr 97.6 F-98.4 F 86-102 14-28 54-167/39-109 90-100 General appearance: no acute distress, other (Pleasant, alert, oriented, and cooperative. He denies pain and says he is feeling so much better and wants to begin ambulating because his bed is uncomfortable.) - Head Head exam: Present: normocephalic - Eye Eye exam: Absent: scleral icterus - GI/Abdominal GI/Abdominal exam: Present: distended, hypoactive bowel sounds, other (Drains in place and functioning; some scattered debris in otherwise clear sump output. Distention is less; periumbilical induration and erythema has almost completely resolved. Sutures intact without redness or drainage. ). Absent: guarding, tenderness - Extremities Exam Extremities exam: Present: other (Peripheral edema is less; now 1-2+ with pitting. Small medial ulcer on the right is clean and stable. ) - Neurological Exam Neurological exam: Present: alert, oriented X3 Results - Labs CBC & BMP: 08/31/16 04:36 08/31/16 04:36 Lab Results: I have reviewed the past 24 hour labs (Labs noted; WBC slightly down; H&H Stable.) - Diagnostic Findings Procedure: KUB x-ray: report reviewed by me (Gaseous distention.), CT - chest: report reviewed by me (Atelectasis.) Quality Measures - VTE Contraindication to Pharmacological VTE Prophylaxis: High Risk of Bleeding - Stroke Symptom Onset Unknown: No
[2016-08-31 09:01] LABS: Hemoglobin A1 (Alkaline) 97.1 % (96.5-98.5); Hemoglobin A2 (Alkaline) 2.9 % (1.5-3.5)
[2016-08-31] MEDS: LACTATED RINGERS 1,000 ML IV SCH ×2 (09:32→20:41)
[2016-08-31] MEDS: SPIRONOLACTONE 25 MG TABLET PO SCH (09:33)
[2016-08-31] MEDS: METOPROLOL SUCCINATE XL 50 MG TABLET PO SCH ×2 (09:34→20:40)
[2016-08-31] MEDS: FUROSEMIDE 40 MG/4 ML VIAL IV SCH (09:34)
[2016-08-31] MEDS: DESITIN 4OZ/NYSTATIN 15 GRAM MIXTURE PASTE TOP SCH ×2 (09:34→20:42)
[2016-08-31] MEDS: PANTOPRAZOLE 40 MG TABLET PO SCH (09:34)
--- NOTE | 2016-08-31 10:14 | Cardiology Progress Note ---
<Melva Koehler E - Last Filed: 08/31/16 11:11> Assessment and Plan (1) Ascites Status: Acute Assessment and plan: Assessment and plan 08/23/2016: 1. 71-year-old BM with 3-4 months of increased lower extremity edema and ascites/anasarca feeling much better after large volume paracentesis earlier today. 2. 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 Consult sleep medicine. 3. Mild cardiomyopathy with ejection fraction of 40% July 2016 in the clinic; he is followed Dr. Escalante 4. Add spironolactone 25 mg twice a day 5. Add IV Lasix 40 mg twice a day 6. Check electrolytes and renal function 08/24/2016: 1. Improved abdominal fullness status post paracentesis 2. Normal LV systolic function with EF 55% yesterday, without enlarged right ventricle 3. At least moderate pulmonary hypertension suggested by echocardiogram oh ( PAP 40-53 mmHg) 4. Reduce IV Lasix to once daily, continue spironolactone at 25 millions per day. 5. GI workup in process 6. Periodically check Electrolytes and renal function 7. We'll follow with you. 08/25/2016: Current Visit: Yes Qualifiers: Ascites type: malignant Qualified Code(s): R18.0 - Malignant ascites (2) Bilateral lower extremity edema Status: Acute Assessment and plan: Continue current plan of care Current Visit: Yes (3) Dyspnea Status: Acute Assessment and plan: Continue current plan of care Current Visit: Yes (4) Arrhythmia Status: Resolved Assessment and plan: See plan of care listed below Current Visit: Yes Cardiology - PN: Subj Interval history: [employer] DRIVER: DR. ESCALANTE SUMMARY: Mr. Dale, 71-year-old -[place]ian male, is a patient Dr. Escalante. Dr. Escalante initially saw patient July 21, 2016 for edema in lower extremities, abdomen and dyspnea on exertion. Adjustments in his diuretics were made. He continued to become more short of breath and he came to the emergency department at [facility] August 23, 2016. Echocardiogram revealed EF 50%, mild to moderate mitral regurgitation with sclerosing aortic valve and mild to moderate tricuspid regurgitation with mild to moderately elevated right-sided pressures.. He was found to have ascites and underwent ultrasound-guided paracentesis with over 2000 mL of malodorous, serous ascitic fluid with debris being removed. During the hospital stay, he has had several runs of PAT and NSVT. Her beta-jose manuel was increased. He has undergone exploratory laparotomy with drainage of abdomen and placement of drain on August 26, 2016, performed by Dr. Painter. From a cardiac standpoint, he has been doing well over the weekend. He has had no dysrhythmias. It is felt that his edema may be related to hypoalbuminemia and his nutritional status. He does have severe untreated sleep apnea as well. AUGUST 31, 2016: Over the weekend, patient seems to be doing well. He has had no dysrhythmia and remains in normal sinus rhythm. Yesterday, white blood cell count was 25. I will order CBC today. Also, blood cultures 2 and urinalysis will be ordered as well. He is tolerating metoprolol succinate 50 mg orally twice daily. ASSESSMENT/PLAN: 1. ASCITES - continue current plan of care 2. BLE EDEMA - much improved. Continue with IV Lasix twice daily, TEDs. 3. HYPOALBUMINEMIA - continue current plan of care 4. CARDIOMYOPATHY - resolved as his EF is noted to be 50%. Unable to determine whether this was ischemic and nonischemic. 5. SLEEP APNEA - untreated sleep apnea. Has declined a sleep workup in the past 6. ANEMIA - hemoglobin and hematocrit has drifted down during this hospital stay. Taking Lovenox, low-dose. Continue to monitor closely 7. LEUKOCYTOSIS -blood cultures collected yesterday, urine cultures well. WBCs improved minimally overnight. Afebrile. 8. PAT, NSVT -no recurrent arrhythmia since initiation of beta-blockade. Exam (Progress Note) - Constitutional Vitals: Period Temp Pulse Resp BP Sys/Dorado Pulse Ox Last 24 Hr 97.6 F-98.4 F 86-106 15-28 54-167/39-109 90-100 Exam: General: [Appears well with no apparent distress.] [Pleasant and cooperative. ] [Appears comfortable.] HEENT: [PERRL, normocephalic, atraumatic. Mucous membranes moist. No jaundice noted. Conjunctiva moist and clear, sclerae anicteric] Neck: No JVD/HJR, no thyromegaly or lymphadenopathy noted. No carotid bruit appreciated Cardiac: [Regular rate and rhythm.] [No murmur rub or gallop.] Lungs: [Clear to auscultation without accessory muscle use to assist the respiratory pattern.] Using oxygen intermittently. Abdomen: Soft, bowel sounds normoactive. Tube noted to the right lower abdominal quadrant. No masses noted. Musculoskeletal: No fluid collection. Decreased range of motion is noted. Extremities: No clubbing, cyanosis noted. [Trace to 1+ bilateral lower extremity edema. ] Upper extremity pulses 2+. Lower extremity pulses 2+. Capillary refill less than 3 seconds. Skin: No unusual lesions or rashes. No skin breakdown appreciated. Neuro: Awake, alert and oriented 3. Moves all extremities well without hemiparesis or paralysis. No essential tremor is appreciated. Result/EKG - Labs CBC & BMP: 08/31/16 04:36 08/31/16 04:36 Lab Results: I have reviewed the past 24 hour labs Labs: Laboratory Results - last 24 hr 08/30/16 08/30/16 08/30/16 11:57 13:57 13:57 WBC 25.6 H RBC 3.27 L Hgb 9.8 L Hct 33.1 L MCV 101.2 MCH 30 MCHC 29.6 L RDW 17.1 Plt Count 384 MPV 9.8 Neut % (Auto) 60.3 Lymph % (Auto) 17.0 L [place] % (Auto) 10.0 Eos % (Auto) 0.7 Baso % (Auto) 0.3 Neut # (Auto) 15.5 H Lymph # (Auto) 4.4 H [place] # (Auto) 2.6 H Eos # (Auto) 0.2 Baso # (Auto) 0.1 Total Counted 100 Immature Gran % 11.7 Nucleated RBC % 0.6 Immature Gran # 2.99 Segmented Neutrophils 66 Band Neutrophils Lymphocytes 20 Monocytes 10 Eosinophils 2 Metamyelocytes 2 Nucleated RBCs 1 Nucleated RBCs # 0.16 Platelet Estimate Normal Polychromasia Few Hypochromasia Macrocytosis Morphology Comment ESR Westergren 84 H Absolute Retic 0.2 Percent Retic 6.6 H Retic Hgb Equivalent 38.5 H Hemoglobin A1 97.1 Hemoglobin A2 2.9 Hgb ELP Interp ABG pH ABG pCO2 ABG pO2 ABG HCO3 ABG Total CO2 ABG O2 Saturation ABG Base Excess Sodium Potassium Chloride Carbon Dioxide Anion Gap BUN Creatinine GFR Calculation BUN/Creatinine Ratio Glucose POC Glucose 137 H Calculated Osmolality Calcium Magnesium Ferritin Vitamin B12 1685 H Folate 18.7 Urine Color Urine Appearance Urine pH Ur Specific Dieterich Urine Protein Urine Glucose (UA) Urine Ketones Urine Blood Urine Nitrate Urine Bilirubin Urine Urobilinogen Urine Leukocytes Urine RBC Urine WBC Ur Squamous Epith Cells Urine Bacteria Urine Mucus Ur Culture Indicated? PADMA (IgG-AHG) PADMA, Polyspecific 08/30/16 08/30/16 08/30/16 13:58 15:00 17:35 WBC RBC Hgb Hct MCV MCH MCHC RDW Plt Count MPV Neut % (Auto) Lymph % (Auto) [place] % (Auto) Eos % (Auto) Baso % (Auto) Neut # (Auto) Lymph # (Auto) [place] # (Auto) Eos # (Auto) Baso # (Auto) Total Counted Immature Gran % Nucleated RBC % Immature Gran # Segmented Neutrophils Band Neutrophils Lymphocytes Monocytes Eosinophils Metamyelocytes Nucleated RBCs Nucleated RBCs # Platelet Estimate Polychromasia Hypochromasia Macrocytosis Morphology Comment ESR Westergren Absolute Retic Percent Retic Retic Hgb Equivalent Hemoglobin A1 Hemoglobin A2 Hgb ELP Interp ABG pH ABG pCO2 ABG pO2 ABG HCO3 ABG Total CO2 ABG O2 Saturation ABG Base Excess Sodium Potassium Chloride Carbon Dioxide Anion Gap BUN Creatinine GFR Calculation BUN/Creatinine Ratio Glucose POC Glucose 146 H Calculated Osmolality Calcium Magnesium Ferritin Vitamin B12 Folate Urine Color Yellow Urine Appearance Slightly hazy Urine pH 5.0 Ur Specific [place]eter[place] 1.010 Urine Protein Negative Urine Glucose (UA) Negative Urine Ketones Negative Urine Blood Negative Urine Nitrate Negative Urine Bilirubin Negative Urine Urobilinogen < 2.0 H Urine Leukocytes Small H Urine RBC 6 Urine WBC 6 Ur Squamous Epith Cells Occasional Urine Bacteria Occasional Urine Mucus Occasional Ur Culture Indicated? Results to follow PADMA (IgG-AHG) Negative PADMA, Polyspecific Negative 08/30/16 08/30/16 08/31/16 23:39 Unknown 04:30 WBC RBC Hgb Hct MCV MCH MCHC RDW Plt Count MPV Neut % (Auto) Lymph % (Auto) [place] % (Auto) Eos % (Auto) Baso % (Auto) Neut # (Auto) Lymph # (Auto) [place] # (Auto) Eos # (Auto) Baso # (Auto) Total Counted Immature Gran % Nucleated RBC % Immature Gran # Segmented Neutrophils Band Neutrophils Lymphocytes Monocytes Eosinophils Metamyelocytes Nucleated RBCs Nucleated RBCs # Platelet Estimate Polychromasia Hypochromasia Macrocytosis Morphology Comment ESR Westergren Absolute Retic Percent Retic Retic Hgb Equivalent Hemoglobin A1 Hemoglobin A2 Hgb ELP Interp ABG pH 7.447 ABG pCO2 36.9 ABG pO2 87.9 ABG HCO3 25.8 ABG Total CO2 23.3 ABG O2 Saturation 97.4 ABG Base Excess 1.5 Sodium Potassium Chloride Carbon Dioxide Anion Gap BUN Creatinine GFR Calculation BUN/Creatinine Ratio Glucose POC Glucose 156 H Calculated Osmolality Calcium Magnesium Ferritin 1930.2 H Vitamin B12 Folate Urine Color Urine Appearance Urine pH Ur Specific Dieterich Urine Protein Urine Glucose (UA) Urine Ketones Urine Blood Urine Nitrate Urine Bilirubin Urine Urobilinogen Urine Leukocytes Urine RBC Urine WBC Ur Squamous Epith Cells Urine Bacteria Urine Mucus Ur Culture Indicated? PADMA (IgG-AHG) PADMA, Polyspecific 08/31/16 08/31/16 08/31/16 04:36 04:36 05:49 WBC 23.3 H RBC 2.98 L Hgb 9.1 L Hct 28.7 L MCV 96.3 MCH 31 MCHC 31.7 L RDW 17.3 Plt Count 333 MPV 9.9 Neut % (Auto) 66.2 Lymph % (Auto) 13.0 L [place] % (Auto) 10.2 Eos % (Auto) 0.7 Baso % (Auto) 0.3 Neut # (Auto) 15.4 H Lymph # (Auto) 3.0 [place] # (Auto) 2.4 H Eos # (Auto) 0.2 Baso # (Auto) 0.1 Total Counted 100 Immature Gran % 9.6 Nucleated RBC % 0.5 Immature Gran # 2.25 Segmented Neutrophils 69 Band Neutrophils 2 Lymphocytes 16 L Monocytes 9 Eosinophils 4 Metamyelocytes Nucleated RBCs Nucleated RBCs # 0.11 Platelet Estimate Adequate Polychromasia Slight Hypochromasia 1+ Macrocytosis Slight Morphology Comment ESR Westergren Absolute Retic Percent Retic Retic Hgb Equivalent Hemoglobin A1 Hemoglobin A2 Hgb ELP Interp ABG pH ABG pCO2 ABG pO2 ABG HCO3 ABG Total CO2 ABG O2 Saturation ABG Base Excess Sodium 138 Potassium 3.8 Chloride 105 Carbon Dioxide 26 Anion Gap 10.8 BUN 23 H Creatinine 0.70 GFR Calculation 127 BUN/Creatinine Ratio 32.00 H Glucose 138 H POC Glucose 139 H Calculated Osmolality 280.7 Calcium 7.3 L Magnesium 1.7 L Ferritin Vitamin B12 Folate Urine Color Urine Appearance Urine pH Ur Specific Dieterich Urine Protein Urine Glucose (UA) Urine Ketones Urine Blood Urine Nitrate Urine Bilirubin Urine Urobilinogen Urine Leukocytes Urine RBC Urine WBC Ur Squamous Epith Cells Urine Bacteria Urine Mucus Ur Culture Indicated? PADMA (IgG-AHG) PADMA, Polyspecific - Diagnostic Findings Procedure: Chest x-ray: report reviewed by me - EKG EKG results: interpreted by me EKG shows: sinus rhythm Quality Measures - VTE Contraindication to Pharmacological VTE Prophylaxis: High Risk of Bleeding - Stroke Symptom Onset Unknown: No <Fitz Escalante - Last Filed: 08/31/16 20:49> Assessment and Plan (1) Ascites Status: Acute Current Visit: Yes Qualifiers: Ascites type: malignant Qualified Code(s): R18.0 - Malignant ascites (2) Abdominal mass Status: Acute Current Visit: Yes Qualifiers: Abdominal location: periumbilical Qualified Code(s): R19.05 - Periumbilic swelling, mass or lump (3) Bilateral lower extremity edema Status: Acute Current Visit: Yes (4) Hyperbilirubinemia Status: Acute Current Visit: Yes (5) Hypoalbuminemia Status: Acute Current Visit: Yes (6) Hypotension Status: Acute Current Visit: Yes (7) Leukocytosis Status: Acute Current Visit: Yes (8) Peritonitis Status: Acute Current Visit: Yes (9) Unspecified sleep apnea Status: Acute Current Visit: Yes (10) Arrhythmia Status: Resolved Current Visit: Yes Exam (Progress Note) - Constitutional Vitals: Period Temp Pulse Resp BP Sys/Dorado Pulse Ox Last 24 Hr 97.7 F-98.0 F 86-106 16-28 54-124/35-73 93-98 Result/EKG - Labs CBC & BMP: 08/31/16 04:36 08/31/16 04:36 Labs: Laboratory Results - last 24 hr 08/30/16 08/30/16 08/30/16 13:57 13:57 23:39 WBC 25.6 H RBC 3.27 L Hgb 9.8 L Hct 33.1 L MCV 101.2 MCH 30 MCHC 29.6 L RDW 17.1 Plt Count 384 MPV 9.8 Neut % (Auto) 60.3 Lymph % (Auto) 17.0 L [place] % (Auto) 10.0 Eos % (Auto) 0.7 Baso % (Auto) 0.3 Neut # (Auto) 15.5 H Lymph # (Auto) 4.4 H [place] # (Auto) 2.6 H Eos # (Auto) 0.2 Baso # (Auto) 0.1 Total Counted 100 Immature Gran % 11.7 Nucleated RBC % 0.6 Immature Gran # 2.99 Segmented Neutrophils 66 Band Neutrophils Lymphocytes 20 Monocytes 10 Eosinophils 2 Metamyelocytes 2 Nucleated RBCs 1 Nucleated RBCs # 0.16 Anemia Panel Interp Platelet Estimate Normal Polychromasia Few Hypochromasia Macrocytosis Morphology Comment ESR Westergren 84 H Absolute Retic 0.2 Percent Retic 6.6 H Retic Hgb Equivalent 38.5 H Hemoglobin A1 97.1 Hemoglobin A2 2.9 Hgb ELP Interp ABG pH ABG pCO2 ABG pO2 ABG HCO3 ABG Total CO2 ABG O2 Saturation ABG Base Excess Sodium Potassium Chloride Carbon Dioxide Anion Gap BUN Creatinine GFR Calculation BUN/Creatinine Ratio Glucose POC Glucose 156 H Calculated Osmolality Calcium Magnesium Vitamin B12 1685 H Folate 18.7 08/31/16 08/31/16 08/31/16 04:30 04:36 04:36 WBC 23.3 H RBC 2.98 L Hgb 9.1 L Hct 28.7 L MCV 96.3 MCH 31 MCHC 31.7 L RDW 17.3 Plt Count 333 MPV 9.9 Neut % (Auto) 66.2 Lymph % (Auto) 13.0 L [place] % (Auto) 10.2 Eos % (Auto) 0.7 Baso % (Auto) 0.3 Neut # (Auto) 15.4 H Lymph # (Auto) 3.0 [place] # (Auto) 2.4 H Eos # (Auto) 0.2 Baso # (Auto) 0.1 Total Counted 100 Immature Gran % 9.6 Nucleated RBC % 0.5 Immature Gran # 2.25 Segmented Neutrophils 69 Band Neutrophils 2 Lymphocytes 16 L Monocytes 9 Eosinophils 4 Metamyelocytes Nucleated RBCs Nucleated RBCs # 0.11 Anemia Panel Interp Platelet Estimate Adequate Polychromasia Slight Hypochromasia 1+ Macrocytosis Slight Morphology Comment ESR Westergren Absolute Retic Percent Retic Retic Hgb Equivalent Hemoglobin A1 Hemoglobin A2 Hgb ELP Interp ABG pH 7.447 ABG pCO2 36.9 ABG pO2 87.9 ABG HCO3 25.8 ABG Total CO2 23.3 ABG O2 Saturation 97.4 ABG Base Excess 1.5 Sodium 138 Potassium 3.8 Chloride 105 Carbon Dioxide 26 Anion Gap 10.8 BUN 23 H Creatinine 0.70 GFR Calculation 127 BUN/Creatinine Ratio 32.00 H Glucose 138 H POC Glucose Calculated Osmolality 280.7 Calcium 7.3 L Magnesium 1.7 L Vitamin B12 Folate 08/31/16 08/31/16 08/31/16 05:49 12:16 18:35 WBC RBC Hgb Hct MCV MCH MCHC RDW Plt Count MPV Neut % (Auto) Lymph % (Auto) [place] % (Auto) Eos % (Auto) Baso % (Auto) Neut # (Auto) Lymph # (Auto) [place] # (Auto) Eos # (Auto) Baso # (Auto) Total Counted Immature Gran % Nucleated RBC % Immature Gran # Segmented Neutrophils Band Neutrophils Lymphocytes Monocytes Eosinophils Metamyelocytes Nucleated RBCs Nucleated RBCs # Anemia Panel Interp Platelet Estimate Polychromasia Hypochromasia Macrocytosis Morphology Comment ESR Westergren Absolute Retic Percent Retic Retic Hgb Equivalent Hemoglobin A1 Hemoglobin A2 Hgb ELP Interp ABG pH ABG pCO2 ABG pO2 ABG HCO3 ABG Total CO2 ABG O2 Saturation ABG Base Excess Sodium Potassium Chloride Carbon Dioxide Anion Gap BUN Creatinine GFR Calculation BUN/Creatinine Ratio Glucose POC Glucose 139 H 133 H 197 H Calculated Osmolality Calcium Magnesium Vitamin B12 Folate
[2016-08-31] MEDS: CEFTAZIDIME INTRAPERIT SCH (11:30)
[2016-08-31] MEDS: SODIUM CHLORIDE 0.9% INTRAPERIT SCH (11:30)
[2016-08-31] MEDS: ENOXAPARIN 40 MG/0.4 ML SYRINGE SUBCUT SCH (12:27)
--- NOTE | 2016-08-31 13:39 | Hospitalist Progress Note ---
Assessment and Plan (1) Ascites Status: Acute Assessment and plan: His ascites is significantly improved. He has a sump drain in place. Total drainage has decreased. Current Visit: Yes Qualifiers: Ascites type: malignant Qualified Code(s): R18.0 - Malignant ascites (2) Abdominal mass Status: Acute Assessment and plan: It is unclear whether this mass is a neoplasm, although it is certainly suspicious. Surgery has deferred any operations until he is more stable. Current Visit: Yes Qualifiers: Abdominal location: periumbilical Qualified Code(s): R19.05 - Periumbilic swelling, mass or lump (3) Peritonitis Status: Acute Assessment and plan: He is presently being treated with intravenous ceftazidime, metronidazole, and cipro. Current Visit: Yes Hospitalist: Subjective Interval history: Mr. Dale is a 71-year-old -[place] male who was hospitalized here with abdominal swelling who was found to have an abdominal mass and ascites with acute peritonitis. He has been treated with intravenous antibiotics after having undergone a paracenteses. He experienced acute respiratory failure for which he underwent intubation and assisted ventilation. He has done well since being weaned from the ventilator. He is presently eating with no difficulty and is not experiencing any abdominal pain. Case management has been consulted for placement in LTAC. Exam - Constitutional Vitals: Period Temp Pulse Resp BP Sys/Dorado Pulse Ox Last 24 Hr 97.7 F-98.4 F 86-106 15-28 54-167/39-109 90-100 General appearance: no acute distress - Head Head exam: Present: normal inspection, normocephalic - Eye Eye exam: Present: EOMI Pupils: Present: LEE - Neck Neck exam: Present: normal inspection - Respiratory Respiratory exam: Present: clear to auscultation bilaterally - Cardiovascular Cardiovascular exam: Present: regular rate and rhythm - GI/Abdominal GI/Abdominal exam: Present: normal bowel sounds, other (Nontender with no palpable masses or hepatosplenomegaly.) - Extremities Exam Extremities exam: Present: normal inspection - Back Exam Back exam: Present: normal inspection - Neurological Exam Neurological exam: Present: alert, oriented X3 - Psychiatric Psychiatric exam: Present: normal affect, normal mood - Skin Skin exam: Present: normal color, warm, dry Results - Labs CBC & BMP: 08/31/16 04:36 08/31/16 04:36 Quality Measures - VTE Contraindication to Pharmacological VTE Prophylaxis: High Risk of Bleeding - Stroke Symptom Onset Unknown: No
[2016-08-31] MEDS: FAT EMULSION 20% 250 ML IV SCH (13:57)
[2016-08-31] MEDS: MULTIVITAMIN INJ 10 ML in AMINO ACIDS/DEXT/LYTES 5-15% 2,000 ML IV SCH (17:34)
[2016-08-31] MEDS ORDERED: MAGNESIUM SULF RIDER 2 GM in PREMIX 1 EACH IV ONE (20:45)
[2016-08-31] MEDS: MAGNESIUM CHLORIDE 64 MG TABLET PO SCH (21:14)
[2016-09-01] MEDS: ALBUTEROL/IPRATROPIUM 3 ML NEB RESP TX SCH ×3 (00:38→12:05)
[2016-09-01] MEDS: metroNIDAZOLE INJ 500 MG in PREMIX 1 EACH IV SCH ×3 (03:55→16:00)
[2016-09-01 05:19] LABS: Basophils % 0.2 % (0.0-0.8); Eosinophils # 0.2 10*3/uL (0.0-0.87); Hematocrit 29.2 VOL% (42.0-52.0); Hemoglobin 9.1 GM/DL (14.0-18.0); Immature Granulocytes % 6.8 %; Immature Granulocytes Absolute 1.36 #; Lymphocytes # 2.9 10*3/uL (1.4-4.0); Lymphocytes % 14.3 % (21.2-54.2); Mean Corpuscular HGB Conc 31.2 GM/DL (32-36); Mean Corpuscular Hemoglobin 31 PG (27-34); Mean Corpuscular Volume 98.6 FL (87-102); Monocytes # 2.3 10*3/uL (0.11-0.8); Monocytes % 11.5 % (1.7-12.7); NRBC # 0.06 10*3/uL; Neutrophils # 13.3 10*3/uL (1.4-7.4); Neutrophils % 66.2 % (38.7-73.9); Platelet Count 271 T/CUMM (130-400); Red Blood Count 2.96 MC/CUMM (3.8-5.5); Red Cell Distribution Width 18.5 % (9.3-17.3); White Blood Count 20.1 T/CUMM (4-12)
[2016-09-01 05:40] LABS: Anisocytosis 2+; Hypochromasia 2+; Lymphocytes 16 % (20-55); Macrocytosis 2+; Platelet Estimate Normal; Polychromasia 1+; Segmented Neutrophils 74 % (50-85); Total Cells Counted 100
[2016-09-01 05:48] LABS: Calcium 7.1 MG/DL (8.5-10.1); Magnesium 1.8 MG/DL (1.8-2.4); Osmolality,Calculated 282.5 MOS/KG (273-304); Potassium 3.7 MMOL/L (3.5-5.1)
[2016-09-01] MEDS: INSULIN REGULAR 100 UNIT/ML SUBCUT SCH ×3 (05:53→17:55)
[2016-09-01] MEDS: CIPROFLOXACIN INJ 400 MG in PREMIX 1 EACH IV SCH ×2 (06:41→16:00)
--- NOTE | 2016-09-01 09:07 | General Surgery Progress Note ---
Assessment and Plan (1) Abdominal mass Status: Acute Assessment and plan: Impression: 1. Abdominal mass etiology unclear with extension towards the umbilicus. We need to consider near neoplastic process 2. Ascites etiology unclear 3. Congestive heart failure. Plan: 1. At this point were waiting on the fluids that were drawn off see if there is any unusual sales or abnormality seen with that. We will start some local care to the abdominal wall at this point time to keep things smooth and dry well protected. 2. Because of the mass-effect and induration around the umbilicus which could be infectious in nature I think we have to consider that this could be a neoplastic process. I think patient needs an be in good medical condition before considering any surgery at this point in order to ensure that we get the best results long-term. 08/30/2016 Patient is off the ventilator and sump drainage is decreasing. He still remains somewhat distended with some hypoactive bowel sounds but will try him on some liquids today. WBC is hanging around 25,000 the rest of his labs look normal. Generally he looks very good and I think it be veras to go ahead and try to advance his diet and see how he basically does. 09/01/2016 Patient is progressing slowly but is much better today. Tolerated his diet without problems at this time the sump drainage is minimal and decreasing. WBC is coming down now 20,000 in general he is doing extremely well. Could move to the floor are to [facility] at any time to count to get him better physical therapy. We will keep the drains for now until we are sure that we got good clearance of this infection. Current Visit: Yes Qualifiers: Abdominal location: periumbilical Qualified Code(s): R19.05 - Periumbilic swelling, mass or lump (2) Abdominal mass Status: Acute Current Visit: Yes Subjective Patient reports: Present: tolerating liquids well, bowel movement, afebrile Exam - Constitutional Vitals: Period Temp Pulse Resp BP Sys/Dorado Pulse Ox Last 24 Hr 97.6 F-98.1 F 83-106 16-27 82-124/35-73 95-98 General appearance: mild distress - Head Head exam: Present: normal inspection - Neck Neck exam: Present: normal inspection - Respiratory Respiratory exam: Present: rales - Cardiovascular Cardiovascular exam: Present: RRR - GI/Abdominal GI/Abdominal exam: Present: distended, hypoactive bowel sounds, soft, other ( Drainage from the drains are less incisions are clean and dry) - Extremities Exam Extremities exam: Present: normal inspection - Neurological Exam Neurological exam: Present: alert, oriented X3, CN II-XII intact - Skin Skin exam: Present: normal color, warm, dry Results - Labs CBC & BMP: 09/01/16 04:45 09/01/16 04:45 Lab Results: I have reviewed the past 24 hour labs Quality Measures - VTE Contraindication to Pharmacological VTE Prophylaxis: High Risk of Bleeding - Stroke Symptom Onset Unknown: No
--- NOTE | 2016-09-01 09:26 | Discharge Summary ---
Hospital Course - Hospital Course Hospital Course: Mr. Dale is a 71-year-old -Thai male who was hospitalized here with abdominal swelling found to be an abdominal mass with ascites. He underwent percutaneous drainage of approximately 2100 mL of purulence fluid. He was treated with intravenous ceftazidime, ciprofloxacin, and metronidazole.He was followed during his hospitalization by gastroenterology, cardiology, and general surgery. At the time of his discharge he is significantly improved and was in stable condition. Diagnosis - Discharge Diagnosis (1) Ascites Status: Acute (2) Abdominal mass Status: Acute (3) Peritonitis Status: Acute Discharge Plan - Discharge Data Disposition: Disch/Xfer-[facility] Term Hos Condition at Discharge: Stable Discharge Diet: advance to your usual diet Activity: resume usual activities as tolerated - Discharge Medications New HYDROcodone/ACETAMIN 7.5-325 [[place] 7.5-325] 1 tablet PO Q4H PRN #0 tablet PRN Reason: Pain Moderate (4-7) Ciprofloxacin Inj [Cipro Inj] 400 mg IV Q8H Continue Carvedilol 6.25 mg PO BID Captopril 6.25 mg PO BID Spironolactone [Aldactone] 12.5 mg PO DAILY metOLazone [Metolazone] 5 mg PO DAILY - Follow Up or Referral - Forms/Instructions Exam - Constitutional Vitals: Period Temp Pulse Resp BP Sys/[place] Pulse Ox Last 24 Hr 97.6 F-98.1 F 83-106 16-27 82-124/35-73 95-98 General appearance: no acute distress - Head Head exam: Present: normal inspection, normocephalic - Eye Eye exam: Present: EOMI Pupils: Present: LEE - Neck Neck exam: Present: normal inspection - Respiratory Respiratory exam: Present: clear to auscultation bilaterally - Cardiovascular Cardiovascular exam: Present: regular rate and rhythm - GI/Abdominal GI/Abdominal exam: Present: normal bowel sounds, soft, other (Nontender with no palpable masses or hepatosplenomegaly.) - Extremities Exam Extremities exam: Present: normal inspection - Back Exam Back exam: Present: normal inspection - Neurological Exam Neurological exam: Present: alert, oriented X3 - Psychiatric Psychiatric exam: Present: normal affect, normal mood - Skin Skin exam: Present: normal color, warm, dry Discharge Results Procedures and tests throughout hospitalization: Pending Orders 04/24/17 Urine Culture Routine 08/30/16 13:24 Occult Blood, Stool Routine 08/30/16 13:58 Blood Culture Routine 09/02/16 04:00 BMP w/ Mg [Basic Metabolic Panel w/Mg] IN AM Basic Metabolic Panel IN AM Comp Blood Count Auto Diff IN AM Magnesium MOTH Phosphorous MOTH Prealbumin Routine 09/03/16 04:00 BMP w/ Mg [Basic Metabolic Panel w/Mg] IN AM Labs on day of discharge: Labs from last 24 hours 09/01/16 09/01/16 08/31/16 04:45 04:45 23:32 WBC 20.1 H RBC 2.96 L Hgb 9.1 L Hct 29.2 L MCV 98.6 MCH 31 MCHC 31.2 L RDW 18.5 H Plt Count 271 MPV 10.0 Neut % (Auto) 66.2 Lymph % (Auto) 14.3 L [place] % (Auto) 11.5 Eos % (Auto) 1.0 Baso % (Auto) 0.2 Neut # (Auto) 13.3 H Lymph # (Auto) 2.9 [place] # (Auto) 2.3 H Eos # (Auto) 0.2 Baso # (Auto) 0.0 Total Counted 100 Immature Gran % 6.8 Nucleated RBC % 0.3 Immature Gran # 1.36 Segmented Neutrophils 74 Lymphocytes 16 L Monocytes 10 Eosinophils Metamyelocytes Nucleated RBCs Nucleated RBCs # 0.06 Anemia Panel Interp Platelet Estimate Normal Polychromasia 1+ Hypochromasia 2+ Anisocytosis 2+ Macrocytosis 2+ ESR [place] Absolute Retic Percent Retic Retic Hgb Equivalent Sodium 139 Potassium 3.7 Chloride 104 Carbon Dioxide 26 Anion Gap 12.7 BUN 21 H Creatinine 0.60 L GFR Calculation 135 BUN/Creatinine Ratio 35.00 H Glucose 145 H POC Glucose 107 H Calculated Osmolality 282.5 Calcium 7.1 L Magnesium 1.8 08/31/16 08/31/16 08/30/16 18:35 12:16 13:57 WBC 25.6 H RBC 3.27 L Hgb 9.8 L Hct 33.1 L MCV 101.2 MCH 30 MCHC 29.6 L RDW 17.1 Plt Count 384 MPV 9.8 Neut % (Auto) 60.3 Lymph % (Auto) 17.0 L [place] % (Auto) 10.0 Eos % (Auto) 0.7 Baso % (Auto) 0.3 Neut # (Auto) 15.5 H Lymph # (Auto) 4.4 H [place] # (Auto) 2.6 H Eos # (Auto) 0.2 Baso # (Auto) 0.1 Total Counted 100 Immature Gran % 11.7 Nucleated RBC % 0.6 Immature Gran # 2.99 Segmented Neutrophils 66 Lymphocytes 20 Monocytes 10 Eosinophils 2 Metamyelocytes 2 Nucleated RBCs 1 Nucleated RBCs # 0.16 Anemia Panel Interp Platelet Estimate Normal Polychromasia Few Hypochromasia Anisocytosis Macrocytosis ESR Westergren 84 H Absolute Retic 0.2 Percent Retic 6.6 H Retic Hgb Equivalent 38.5 H Sodium Potassium Chloride Carbon Dioxide Anion Gap BUN Creatinine GFR Calculation BUN/Creatinine Ratio Glucose POC Glucose 197 H 133 H Calculated Osmolality Calcium Magnesium Preliminary micro results at discharge 08/30/16 13:58 Blood Culture - Preliminary Blood No growth at 1 day 08/30/16 13:58 Blood Culture - Preliminary Blood No growth at 1 day 08/30/16 Unknown Urine Culture - Preliminary Urine,Voided No Growth at 24 hours. DS: Provider Date of admission: 08/23/16 10:43 Primary care physician: . No PCP Attending physician on admission: Carlton Cason MD Consults: 08/23/16 11:16 Consult to Physician [CONS] Routine Comment: ascites, foul smelling fluid on paracentesis Consulting Provider: Kurt Brizuela Person Notified: dang smith/gustavo Date Notified: 08/23/16 Time Notified: 14:11 Consult Notification Comment: left message to call mne back Consult to Physician [CONS] Routine Comment: chf Consulting Provider: Fitz Escalante Person Notified: gladys Date Notified: 08/23/16 Time Notified: 14:06 08/23/16 12:53 Consult to Physician [CONS] Routine Comment: ascites, omental caking, poss perf Consulting Provider: Jaime Painter When should Consulting Provider be notified: Jacquelyn Person Notified: delvin Date Notified: 08/23/16 Time Notified: 14:13 08/23/16 18:21 Consult to Sleep Center [CONS] Routine Reason for Sleep Center: Sleep Center Physician Consult Comment: anacities;ascities; possible NGHIA 08/24/16 14:02 Consult to Anesthesiology [CONS] Routine Consulting Provider: Reason for Anesthesiology: Pre-op Clearance Consult Comment: General possibly might need central line and ICU bed postop 08/26/16 09:32 Consult to Pharmacy [CONS] Routine Reason for Pharmacy Consult: Adjust Meds Renal Funct 08/26/16 09:56 Consult to Physician [CONS] Routine Comment: Consulting Provider: Consult to Specialist Group: Pulmonology When should Consulting Provider be notified: Now 08/26/16 10:13 Consult to Physician [CONS] Routine Comment: Consulting Provider: Kurt Oglesby Consult to Specialist Group: Pulmonology When should Consulting Provider be notified: Now Date Notified: 08/26/16 Time Notified: 11:15 Consult Notification Comment: Patient postop from severe peritonitis on the ventilator please help manage: spoke to Rabia in office. 08/28/16 12:21 Consult to Occupational Therapy [CONS] Routine Reason for Occupational Therapy: Evaluate and Treat Consult Comment: start tuesday Consult to Physical Therapy [CONS] Routine Reason for Physical Therapy: Evaluate and Treat Consult Comment: start tue08/29/16 09:03 Consult to Dietitian [CONS] Routine Reason for Dietitian: TPN/PPN-Initiate/Manage 08/30/16 07:55 Consult to Physical Therapy [CONS] Routine Reason for Physical Therapy: Evaluate and Treat Start Therapy: Today Consult Comment: Stand patient and ambulate bed to chair twice daily 08/31/16 08:41 Consult to Case Mgmt/Social Srvs [CONS] Routine Reason for Case Mgmt/Social Srvs: LTAC Consult Comment: [facility] referral; pt may transfer at any time, if OK with hospitalist Discharging clinician: Drew Tran Expected date of discharge: 09/01/16
[2016-09-01] MEDS: SPIRONOLACTONE 25 MG TABLET PO SCH (09:54)
[2016-09-01] MEDS: LACTATED RINGERS 1,000 ML IV SCH ×2 (09:54→17:20)
[2016-09-01] MEDS: DESITIN 4OZ/NYSTATIN 15 GRAM MIXTURE PASTE TOP SCH (09:55)
[2016-09-01] MEDS: MAGNESIUM CHLORIDE 64 MG TABLET PO SCH (09:55)
[2016-09-01] MEDS: PANTOPRAZOLE 40 MG TABLET PO SCH (09:55)
[2016-09-01] MEDS: FUROSEMIDE 40 MG/4 ML VIAL IV SCH (09:55)
[2016-09-01] MEDS: METOPROLOL SUCCINATE XL 50 MG TABLET PO SCH (10:00)
[2016-09-01] MEDS: PHENYLEPHRINE DRIP 40 MG/250 ML PREMIX IV SCH (10:01)
--- NOTE | 2016-09-01 11:09 | Cardiology Progress Note ---
Assessment and Plan (1) Ascites Status: Acute Assessment and plan: Assessment and plan 08/23/2016: 1. 71-year-old BM with 3-4 months of increased lower extremity edema and ascites/anasarca feeling much better after large volume paracentesis earlier today. 2. 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 Consult sleep medicine. 3. Mild cardiomyopathy with ejection fraction of 40% July 2016 in the clinic; he is followed Dr. Escalante 4. Add spironolactone 25 mg twice a day 5. Add IV Lasix 40 mg twice a day 6. Check electrolytes and renal function 08/24/2016: 1. Improved abdominal fullness status post paracentesis 2. Normal LV systolic function with EF 55% yesterday, without enlarged right ventricle 3. At least moderate pulmonary hypertension suggested by echocardiogram oh ( PAP 40-53 mmHg) 4. Reduce IV Lasix to once daily, continue spironolactone at 25 millions per day. 5. GI workup in process 6. Periodically check Electrolytes and renal function 7. We'll follow with you. 08/25/2016: Current Visit: Yes Qualifiers: Ascites type: malignant Qualified Code(s): R18.0 - Malignant ascites (2) Bilateral lower extremity edema Status: Acute Assessment and plan: Continue current plan of care Current Visit: Yes (3) Dyspnea Status: Acute Assessment and plan: Continue current plan of care Current Visit: Yes (4) Arrhythmia Status: Resolved Assessment and plan: See plan of care listed below Current Visit: Yes Cardiology - PN: Subj Interval history: DIRECTOR OF COMMUNITY CENTER: DR. ESCALANTE SUMMARY: Mr. Dale, 71-year-old -[place]onegas[place] male, is a patient Dr. Escalante. Dr. Escalante initially saw patient July 21, 2016 for edema in lower extremities, abdomen and dyspnea on exertion. Adjustments in his diuretics were made. He continued to become more short of breath and he came to the emergency department at [facility] August 23, 2016. Echocardiogram revealed EF 50%, mild to moderate mitral regurgitation with sclerosing aortic valve and mild to moderate tricuspid regurgitation with mild to moderately elevated right-sided pressures.. He was found to have ascites and underwent ultrasound-guided paracentesis with over 2000 mL of malodorous, serous ascitic fluid with debris being removed. During the hospital stay, he has had several runs of PAT and NSVT. Her beta-jose manuel was increased. He has undergone exploratory laparotomy with drainage of abdomen and placement of drain on August 26, 2016, performed by Dr. Painter. From a cardiac standpoint, he has been doing well over the weekend. He has had no dysrhythmias. It is felt that his edema may be related to hypoalbuminemia and his nutritional status. He does have severe untreated sleep apnea as well. SEPTEMBER 01, 2016: Patient continues to improve. He has had no additional arrhythmia and remains in normal sinus rhythm. Tolerating beta blockade without difficulty. Denies chest pain, heaviness or tightness. He states he finally had a bowel movement yesterday after 10 days. He is feeling much better in general. ASSESSMENT/PLAN: 1. ASCITES - continue current plan of care 2. BLE EDEMA - much improved. Continue with Lasix twice daily, TEDs. 3. HYPOALBUMINEMIA - continue current plan of care 4. CARDIOMYOPATHY - resolved as his EF is noted to be 50%. Unable to determine whether this was ischemic and nonischemic. 5. SLEEP APNEA - untreated sleep apnea. Has declined a sleep workup in the past 6. ANEMIA - hemoglobin and hematocrit has drifted down during this hospital stay. Taking Lovenox, low-dose. Continue to monitor closely 7. PAT, NSVT - no recurrent arrhythmia since initiation of beta-blockade. Exam (Progress Note) - Constitutional Vitals: Period Temp Pulse Resp BP Sys/[place] Pulse Ox Last 24 Hr 97.6 F-98.1 F 83-99 16-27 82-123/35-73 95-98 Exam: General: [Appears well with no apparent distress.] [Pleasant and cooperative. ] [Appears comfortable.] HEENT: [PERRL, normocephalic, atraumatic. Mucous membranes moist. No jaundice noted. Conjunctiva moist and clear, sclerae anicteric] Neck: No JVD/HJR, no thyromegaly or lymphadenopathy noted. No carotid bruit appreciated Cardiac: [Regular rate and rhythm.] [No murmur rub or gallop.] Lungs: [Clear to auscultation without accessory muscle use to assist the respiratory pattern.] Using oxygen intermittently. Abdomen: Soft, bowel sounds normoactive. Tube noted to the right lower abdominal quadrant. No masses noted. Musculoskeletal: No fluid collection. Decreased range of motion is noted. Extremities: No clubbing, cyanosis noted. [Trace to 1+ bilateral lower extremity edema. ] Upper extremity pulses 2+. Lower extremity pulses 2+. Capillary refill less than 3 seconds. Skin: No unusual lesions or rashes. No skin breakdown appreciated. Neuro: Awake, alert and oriented 3. Moves all extremities well without hemiparesis or paralysis. No essential tremor is appreciated. Result/EKG - Labs CBC & BMP: 09/01/16 04:45 09/01/16 04:45 Lab Results: I have reviewed the past 24 hour labs Labs: Laboratory Results - last 24 hr 08/31/16 08/31/16 08/31/16 12:16 18:35 23:32 WBC RBC Hgb Hct MCV MCH MCHC RDW Plt Count MPV Neut % (Auto) Lymph % (Auto) [place] % (Auto) Eos % (Auto) Baso % (Auto) Neut # (Auto) Lymph # (Auto) [place] # (Auto) Eos # (Auto) Baso # (Auto) Total Counted Immature Gran % Nucleated RBC % Immature Gran # Segmented Neutrophils Lymphocytes Monocytes Nucleated RBCs # Platelet Estimate Polychromasia Hypochromasia Anisocytosis Macrocytosis Sodium Potassium Chloride Carbon Dioxide Anion Gap BUN Creatinine GFR Calculation BUN/Creatinine Ratio Glucose POC Glucose 133 H 197 H 107 H Calculated Osmolality Calcium Magnesium 09/01/16 09/01/16 04:45 04:45 WBC 20.1 H RBC 2.96 L Hgb 9.1 L Hct 29.2 L MCV 98.6 MCH 31 MCHC 31.2 L RDW 18.5 H Plt Count 271 MPV 10.0 Neut % (Auto) 66.2 Lymph % (Auto) 14.3 L [place] % (Auto) 11.5 Eos % (Auto) 1.0 Baso % (Auto) 0.2 Neut # (Auto) 13.3 H Lymph # (Auto) 2.9 [place] # (Auto) 2.3 H Eos # (Auto) 0.2 Baso # (Auto) 0.0 Total Counted 100 Immature Gran % 6.8 Nucleated RBC % 0.3 Immature Gran # 1.36 Segmented Neutrophils 74 Lymphocytes 16 L Monocytes 10 Nucleated RBCs # 0.06 Platelet Estimate Normal Polychromasia 1+ Hypochromasia 2+ Anisocytosis 2+ Macrocytosis 2+ Sodium 139 Potassium 3.7 Chloride 104 Carbon Dioxide 26 Anion Gap 12.7 BUN 21 H Creatinine 0.60 L GFR Calculation 135 BUN/Creatinine Ratio 35.00 H Glucose 145 H POC Glucose Calculated Osmolality 282.5 Calcium 7.1 L Magnesium 1.8 - EKG EKG results: interpreted by me EKG shows: sinus rhythm Quality Measures - VTE Contraindication to Pharmacological VTE Prophylaxis: High Risk of Bleeding - Stroke Symptom Onset Unknown: No
[2016-09-01] MEDS: CEFTAZIDIME INTRAPERIT SCH (13:14)
[2016-09-01] MEDS: SODIUM CHLORIDE 0.9% INTRAPERIT SCH (13:14)
[2016-09-01] MEDS: ENOXAPARIN 40 MG/0.4 ML SYRINGE SUBCUT SCH (13:19)
[2016-09-01] MEDS: FAT EMULSION 20% 250 ML IV SCH (14:45)
[2016-09-01] MEDS: MULTIVITAMIN INJ 10 ML in AMINO ACIDS/DEXT/LYTES 5-15% 2,000 ML IV SCH (17:26)
[2016-09-01 19:33] VITALS: BP 109/72
== END 2016-09-01 18:30 | DRG 371 ==
LOC: N.ED 06:38 → N.EDINP 10:43 → SUATTDRO 10:43 → N.5E 12:09 → N.CC 08-26 09:41
PROVIDERS: ADMIT Internal Medicine